=== PATIENT | female | born 1960 | race African-American/Black ===

== ENCOUNTER 2020-03-02 15:09 | Outpatient (REF) | payer OTHER, SELFPAY | END 2020-03-02 15:10 | disposition home or self-care (01) | LOC: HO.LAB 15:09 | PROVIDERS: Internal Medicine; Visit Provider Internal Medicine | DX: Z20.828 Contact with and (suspected) exposure to other viral communicable diseases (principal) | CPT/HCPCS: C9803; U0003 ==

== ENCOUNTER → 2020-06-24 15:00 | Outpatient (BNVA) | payer OTHER, SELFPAY | PROVIDERS: PCP Internal Medicine; Visit Provider Nurse Practitioner Family ==

== ENCOUNTER 2020-07-06 08:00 | Outpatient (REF) | payer OTHER, SELFPAY ==
--- NOTE | ~2020-07-06 | MM_ITS ---
EXAMINATION: MM SCREENING DIGITAL BREAST TOMOSYNTHESIS, BILATERAL CLINICAL INFORMATION: Screening. Asymptomatic. The lifetime risk of breast cancer based on the Tyrer-Cuzick Model is 5%. COMPARISON: Mammography: 04/20/2019, 12/19/2017 TECHNIQUE: Digital breast tomosynthesis is performed in both the craniocaudal and mediolateral oblique views along with computer-aided detection (CAD). Synthesized 2D images are generated from the tomosynthesis. FINDINGS: There are scattered areas of fibroglandular density (ACR BI-RADS breast composition Category b). Breast tissue composition borders on heterogeneously dense. Parenchymal pattern is similar to our exam. There is no developing density or interval mass or architectural abnormality. No abnormal calcifications. The axilla and skin contours are unremarkable. MM/MM tomosynthesis screening BI IMPRESSION: No mammographic evidence of malignancy. ASSESSMENT: BI-RADS 1: Negative RECOMMENDATION: Routine annual mammography screening. This patient's information was entered into a reminder system with a target due date for their next mammogram.
== END 2020-07-06 08:01 | disposition home or self-care (01) ==
LOC: HO.MAMMO 08:00
PROVIDERS: PCP Internal Medicine; Visit Provider Internal Medicine
DX: Z12.31 Encounter for screening mammogram for malignant neoplasm of breast (principal)
CPT/HCPCS: 77063; 77067

== ENCOUNTER 2020-07-15 12:22 | Day surgery (SDC) | payer OTHER, SELFPAY ==
--- NOTE | 2020-07-13 14:15 | P.CONAN_ITS ---
Documented by User: Karey Randall 07/13/20 14:15 HPI - Anesthesia Eval Consult details Narrative: 60yo F for Colonoscopy PMFSH Active Problems Active Problems: All Active Problems (Updated 05/23/20 @ 15:33 by Eva Denney MD) Exposure to COVID-19 virus (Acute) Annual physical exam (Acute) Lipid disorder (Acute) Depression, major, recurrent (Acute) Past Medical History Medical History Annual physical exam Depression, major, recurrent Lipid disorder Family History Family History Father Diabetes mellitus Mother Diabetes mellitus CVD (cardiovascular disease) Stroke Sister No problems noted. Surgical History Surgical History H/O colonoscopy History of ganglion cyst History of hysterectomy Social History Social History Household Members: None Alcohol intake: current Alcohol intake frequency: does not drink Smoking Status: Never smoker Use of substances other than those prescribed or required for medical reasons: No Advance Directives: No Advance Directives Information Provided: Yes Recently lost weight without trying: No Meds Allergies Allergy/AdvReac Type Severity Reaction Status Date / Time anise seed Allergy Unknown unknown Uncoded 06/24/20 15:01 black licorice Allergy Unknown unknown Uncoded 06/24/20 15:01 grass pollen Allergy Unknown unknown Uncoded 06/24/20 15:01 Home Medications Medication Instructions Recorded Confirmed Last Taken Type cholecalciferol (vitamin D3) 25 25 mcg PO DAILY 02/29/20 07/11/20 Unknown History mcg (1,000 unit) tablet multivitamin 1 tab PO DAILY 02/29/20 07/11/20 Unknown History Exam Exam Date and Time: July 13, 2020 1415 Assessment and Plan Assessment Anesthesia Assessment: Chart Reviewed Documented by User: La Morales 07/15/20 13:28 PMFSH Past Medical History Medical History Annual physical exam Depression, major, recurrent Lipid disorder Family History Family History Father Diabetes mellitus Mother Diabetes mellitus CVD (cardiovascular disease) Stroke Sister No problems noted. Surgical History Surgical History H/O colonoscopy History of ganglion cyst History of hysterectomy Social History Social History Household Members: None Alcohol intake: current Alcohol intake frequency: does not drink Smoking Status: Never smoker Use of substances other than those prescribed or required for medical reasons: No Advance Directives: No Advance Directives Information Provided: Yes Recently lost weight without trying: No Meds Allergies Allergy/AdvReac Type Severity Reaction Status Date / Time anise seed Allergy Unknown unknown Uncoded 06/24/20 15:01 black licorice Allergy Unknown unknown Uncoded 06/24/20 15:01 grass pollen Allergy Unknown unknown Uncoded 06/24/20 15:01 Home Medications Medication Instructions Recorded Confirmed Last Taken Type cholecalciferol (vitamin D3) 25 25 mcg PO DAILY 02/29/20 07/11/20 Unknown Hi story mcg (1,000 unit) tablet multivitamin 1 tab PO DAILY 02/29/20 07/11/20 Unknown History Exam Airway Mallampati Class: II TM Dist: >3cm Neck ROM: Full Assessment and Plan Assessment Anesthesia Assessment: Anesthesia Plan Discussed and Chart Reviewed Final Anesthetic Review NPO: Yes ASA Class: II Final Preanesthetic Review: No Changes in Pt Med Stat, Meds/Allgs Chart Reviewed, Consent Obtained/Reviewed and Anes Risks/Benef Reviewed Patient Risk: Intermediate Procedure Risk: Low Assessment/Block/Sedation in SS: Assess/Block/Sedation-SS Anesthetic Plan Anesthetic Plan: MAC: Disposition: Standard PACU
[2020-07-15 12:57] VITALS: BMI 41.5
[2020-07-15 13:15] VITALS: BP 107/53; PULSE 57; RESP 16; TEMP 36.6; O2SAT 97
[2020-07-15] MEDS: Lactated Ringers 1,000 ML 100 ML IVCONT (13:24)
--- NOTE | 2020-07-15 13:24 | W.PM.OPN ---
Operative Note Operative Note Date of Service: 07/15/20 Narrative: Pre-op diagnosis: Colon cancer screening, family history of colon polyps (dad in his 60's) Post-op diagnosis: other (Colon polyp, diverticulosis) Procedure: COLONOSCOPY TILL CECUM WITH BIOPSIES Consent: Indications for the procedure and potential complications of bleeding, perforation, reaction to medications and missed diagnosis were discussed with the patient and informed consent was obtained. Instrument: Olympus PCF H 190 L variable stiffness pediatric colonoscope Monitoring: Vital signs and clinical assessment, intermittent blood pressure monitoring, continuous EKG monitoring, Pulse oximetry and Carbon Dioxide monitoring were done throughout the procedure. Colon withdrawl time was 18 minutes. Procedure: The patient was placed in the left lateral decubitis position and pre-procedure medications were administered. After a digital rectal examination of the ano-rectum, the video colonoscope was inserted into the rectum and advanced through the colon to the cecum. The colonoscope was slowly withdrawn in a retrograde panoramic fashion and the colon mucosa was carefully examined including a retroflexed view of the rectum. Findings and interventions are described below. Procedure Difficulty: Without difficulty Findings: Terminal Ileum: Not evaluated Cecum: Normal Ascending Colon: Normal Transverse Colon: Normal Descending Colon: Normal Sigmoid Colon: A 2-3 mm diminutive appearing polyp removed with a cold biopsy. Moderate diverticulosis Rectum: Normal Ano-rectum: Normal Colon preparation: Excellent Impression and Post Procedure Diagnosis: Colonoscopy Findings: One diminutive polyp removed Moderate diverticulosis seen in the sigmoid colon Plan: Await pathology results Patient will be sent a letter with biopsy results and recommendations for follow-up colonoscopy. Repeat Colonoscopy interval based on path results - in 5 years if polyps are adenomatous and 10 years if polyps are hyperplastic. Above findings were reviewed with the patient and colon polyps and diverticulosis handouts were given in the discharge area Surgeon: Matthew Pool MD Anesthesia: MAC (Bailee Holguin, DUGLAS) Lymphedema Therapist: Kannan Germain Estimated blood loss (mL): 0 Pathology: other (A. TC polyp x 1) Condition: stable Disposition: PACU
--- NOTE | 2020-07-15 13:24 | MHC.SHP ---
Pre-Procedural Eval Section A The patient is an INPATIENT: No Changes since office visit: Yes Patient answered all questions; No Cold of Flu in the past 2 weeks, No New Medical Problems and No Changes in Medication The History & Physical has been completed within 30 days and I have reviewed it.: Yes Section B Chief Complaint: Screening Allergies: Allergies Allergy/AdvReac Type Severity Reaction Status Date / Time anise seed Allergy Unknown unknown Uncoded 06/24/20 15:01 black licorice Allergy Unknown unknown Uncoded 06/24/20 15:01 grass pollen Allergy Unknown unknown Uncoded 06/24/20 15:01 Plan I have reviewed the history and physical and performed a pertinent physical examination on my patient. No changes have occurred unless specified.
[2020-07-15 14:10] VITALS: BP 91/46; PULSE 58; RESP 16; TEMP 36.4; O2SAT 98
[2020-07-15 14:32] VITALS: BP 110/69; PULSE 70; RESP 16; TEMP 36.4; O2SAT 98
== END 2020-07-15 14:58 | disposition home or self-care (01) ==
PROVIDERS: PCP Internal Medicine; Visit Provider Internal Medicine Gastroenterology
PROC: 0DJD8ZZ Inspection of Lower Intestinal Tract, Via Natural or Artificial Opening Endoscopic (ICD-10-PCS; CPT 45378; principal; 2020-07-15 13:30)
DX: Z12.11 Encounter for screening for malignant neoplasm of colon (principal); Z80.0 Family history of malignant neoplasm of digestive organs; K63.5 Polyp of colon; K57.30 Diverticulosis of large intestine without perforation or abscess without bleeding; F33.9 Major depressive disorder, recurrent, unspecified; Z79.899 Other long term (current) drug therapy
CPT/HCPCS: 45380; 88305

== ENCOUNTER → 2021-01-06 11:01 | Outpatient (BNVA) | payer OTHER, SELFPAY | PROVIDERS: PCP Internal Medicine; Visit Provider Urology ==

== ENCOUNTER 2021-06-02 09:37 | Outpatient (REF) | payer OTHER, SELFPAY ==
[2021-06-02 11:29] LABS: MANUAL DIFF FLAG NO
[2021-06-02 11:40] LABS: Basophils Absolute Auto 0.1 X10*3/uL (0.0-0.2); Basophils Percent Auto 0.7 % (0-2); Eosinophils Absolute Auto 0.2 X10*3/uL (0.0-0.4); Eosinophils Percent Auto 2.3 % (0-4); Hematocrit 39.9 % (37.0-47.0); Hemoglobin 12.4 g/dl (12.0-16.0); Imm Gran Abs Auto 0.04 X10*3/uL (0.00-0.03); Imm Gran Pct Auto 0.5 % (0.0-0.4); Lymphocytes Absolute Auto 3.4 X10*3/uL (1.2-4.9); Mean Corpuscular HGB Conc 31.1 g/dl (31.0-35.0); Mean Corpuscular Hemoglobin 27.1 pg (27.0-33.0); Mean Corpuscular Volume 87.1 fL (80.0-98.0); Mean Platelet Volume 11.7 fL (9.4-12.3); Monocytes Absolute Auto 0.5 X10*3/uL (0.1-1.2); Monocytes Percent Auto 5.7 % (2-11); Neutrophils Absolute Auto 4.4 x10*3/uL (2.0-8.3); Neutrophils Percent Auto 50.8 % (45-73); Platelet Count 222 X10*3/uL (160-400); Red Blood Count 4.58 X10*6/uL (4.20-5.50); White Blood Count 8.6 X10*3/uL (4.8-10.8)
[2021-06-02 12:07] LABS: Alanine Aminotransferase 10 U/L (0-31); Albumin Level 3.9 g/dL (3.5-5.0); Alkaline Phosphatase 75 U/L (39-117); Anion Gap 10 (12-20); Aspartate Amino Transferase 15 U/L (5-31); Bilirubin Total 0.4 mg/dL (0.0-1.0); Blood Urea Nitrogen 17 mg/dL (9-16); Calcium 9.7 mg/dL (8.4-10.2); Carbon Dioxide 31 mmol/L (22-29); Chloride 103 mmol/L (96-108); Cholesterol 276 mg/dL; Estimated Glomerular Filt Rate > 60; Glucose Fasting 87 mg/dL (60-99); HDL Cholesterol 72 mg/dL; LDL Cholesterol Calculated 191 mg/dl; Potassium 5.2 mmol/L (3.3-5.1); Sodium 139 mmol/L (135-145); Total Protein 7.1 g/dL (6.5-8.0); Triglycerides 65 mg/dL
[2021-06-02 12:09] LABS: TSH reflex Free T4 1.71 uIU/mL (0.32-4.0)
== END 2021-06-02 09:38 | disposition home or self-care (01) ==
LOC: HO.HMGCLDS 09:37
PROVIDERS: PCP Internal Medicine; Visit Provider Internal Medicine
DX: Z00.01 Encounter for general adult medical examination with abnormal findings (principal); E78.9 Disorder of lipoprotein metabolism, unspecified; F33.9 Major depressive disorder, recurrent, unspecified
CPT/HCPCS: 36415; 80053; 80061; 84443; 85025

== ENCOUNTER 2021-09-04 17:47 | Outpatient (REF) | payer OTHER, SELFPAY ==
[2021-09-04 18:34] LABS: Influenza A PCR NEGATIVE (Negative); Influenza B PCR NEGATIVE (Negative); Resp Syncy Virus RNA Qual PCR NEGATIVE (Negative); SARS COV2 PCR INHOUSE POSITIVE (Negative)
== END 2021-09-04 17:48 | disposition home or self-care (01) ==
LOC: HO.LNP 17:47
PROVIDERS: Visit Provider Physician Assistant
DX: Z20.822 Contact with and (suspected) exposure to COVID-19 (principal); J40 Bronchitis, not specified as acute or chronic
CPT/HCPCS: 0241U

== ENCOUNTER 2021-10-10 10:23 | Outpatient (REF) | payer OTHER, SELFPAY ==
[2021-10-10 11:46] LABS: Alanine Aminotransferase 14 U/L (0-31); Albumin Level 3.9 g/dL (3.5-5.0); Alkaline Phosphatase 68 U/L (39-117); Anion Gap 11 (12-20); Aspartate Amino Transferase 18 U/L (5-31); Bilirubin Total 0.5 mg/dL (0.0-1.0); Blood Urea Nitrogen 16 mg/dL (9-16); Calcium 9.2 mg/dL (8.4-10.2); Carbon Dioxide 27 mmol/L (22-29); Chloride 108 mmol/L (96-108); Cholesterol 241 mg/dL; Estimated Glomerular Filt Rate > 60; Glucose Fasting 86 mg/dL (60-99); HDL Cholesterol 75 mg/dL; LDL Cholesterol Calculated 157 mg/dl; Sodium 142 mmol/L (135-145); Total Protein 6.9 g/dL (6.5-8.0); Triglycerides 46 mg/dL
== END 2021-10-10 10:24 | disposition home or self-care (01) ==
LOC: HO.HMGCLDS 10:23
PROVIDERS: PCP Internal Medicine; Visit Provider Internal Medicine
DX: E78.9 Disorder of lipoprotein metabolism, unspecified (principal); E66.01 Morbid (severe) obesity due to excess calories; F33.9 Major depressive disorder, recurrent, unspecified; M70.62 Trochanteric bursitis, left hip
CPT/HCPCS: 36415; 80053; 80061

== ENCOUNTER 2022-04-19 08:09 | Outpatient (REF) | payer OTHER, SELFPAY ==
[2022-04-19 17:16] LABS: Urine Cytology See Pathology rpt
== END 2022-04-19 08:10 | disposition home or self-care (01) ==
LOC: HO.LAB 08:09
PROVIDERS: PCP Internal Medicine; Visit Provider Nurse Practitioner Family
DX: R31.29 Other microscopic hematuria (principal); Z87.440 Personal history of urinary (tract) infections; Z79.899 Other long term (current) drug therapy
CPT/HCPCS: 51798; 88112

== ENCOUNTER 2022-06-19 09:55 | Outpatient (REF) | payer OTHER, SELFPAY ==
[2022-06-19 12:12] LABS: Alanine Aminotransferase 10 U/L (0-31); Albumin Level 3.8 g/dL (3.5-5.0); Alkaline Phosphatase 78 U/L (39-117); Anion Gap 13 (12-20); Aspartate Amino Transferase 13 U/L (5-31); Bilirubin Total 0.4 mg/dL (0.0-1.0); Blood Urea Nitrogen 16 mg/dL (9-16); Calcium 8.9 mg/dL (8.4-10.2); Carbon Dioxide 27 mmol/L (22-29); Chloride 105 mmol/L (96-108); Cholesterol 237 mg/dL; Estimated Glomerular Filt Rate 53; Glucose Fasting 90 mg/dL (60-99); HDL Cholesterol 73 mg/dL; LDL Cholesterol Calculated 156 mg/dl; Sodium 141 mmol/L (135-145); Total Protein 6.7 g/dL (6.5-8.0); Triglycerides 41 mg/dL
== END 2022-06-19 09:56 | disposition home or self-care (01) ==
LOC: HO.HMGCLDS 09:55
PROVIDERS: PCP Internal Medicine; Visit Provider Internal Medicine
DX: E66.01 Morbid (severe) obesity due to excess calories (principal); E78.9 Disorder of lipoprotein metabolism, unspecified; F33.9 Major depressive disorder, recurrent, unspecified; J45.20 Mild intermittent asthma, uncomplicated
CPT/HCPCS: 36415; 80053; 80061

== ENCOUNTER 2022-07-23 10:04 | Outpatient (REF) | payer OTHER, SELFPAY ==
--- NOTE | ~2022-07-23 | MM_ITS ---
EXAMINATION: MM SCREENING DIGITAL BREAST TOMOSYNTHESIS, BILATERAL CLINICAL INFORMATION: Screening. Asymptomatic. The lifetime risk of breast cancer based on the Tyrer-Cuzick Model is 5%. COMPARISON: Mammography: 07/06/2020, 04/20/2019, 12/19/2017 TECHNIQUE: Digital breast tomosynthesis is performed in both the craniocaudal and mediolateral oblique views along with computer-aided detection (CAD). Synthesized 2D images are generated from the tomosynthesis. FINDINGS: There are scattered areas of fibroglandular density (ACR BI-RADS breast composition Category b). There are no significant masses, abnormal calcifications, or other abnormalities. Breast tissue composition borders on heterogeneously dense. No developing density or architectural abnormality. The axilla and skin contours are unremarkable. No significant changes from prior exams. MM/MM tomosynthesis screening BI IMPRESSION: No mammographic evidence of malignancy. ASSESSMENT: BI-RADS 1: Negative RECOMMENDATION: Routine annual mammography screening. This patient's information was entered into a reminder system with a target due date for their next mammogram.
== END 2022-07-23 10:05 | disposition home or self-care (01) ==
LOC: HO.MAMMO 10:04
PROVIDERS: PCP Internal Medicine; Visit Provider Internal Medicine
DX: Z12.31 Encounter for screening mammogram for malignant neoplasm of breast (principal)
CPT/HCPCS: 77063; 77067

== ENCOUNTER 2022-12-19 08:10 | Outpatient (AMB) | payer OTHER, SELFPAY ==
--- NOTE | 2022-12-19 08:12 | MHC.OFFVIS ---
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 Pt reports that she was diagnosed with moderate degree of sleep apnea in 2019, the AHI was 15/hr and oxygen chip was 82%. The CPAP ordered but she declined to use CPAP at that time. However, her symptoms; loud snoring, gasping, non refreshing sleep and daytime tiredness have been worsened. Pt reports wt gain during COVID, not sure how much. Pt reports difficulty falling asleep and staying sleep. Pt's work schedule is from 9 am to 10 pm and sleeps only 5 hrs maximum, and also almost every other day she sleeps 2-3 hrs. Nyquil, Zquil, amitriptyline. magnesium and calcium but they did not help her sleep. She is a very light sleeper, can hear everything. Sleep questionnaire: Have you ever been diagnosed with a sleep disorder? KO. Have you ever had a sleep study in the past? Yes, 2019. Have you ever been treated for a sleep disorder? No. Do you take medications for a sleep disorder? No. Do you snore? Yes Do you wake up gasping at night? Yes. Do you have episodes of apneas? Yes, If yes, are they witnessed? Yes. Do you have episodes of nocturnal chest pain or dyspnea? No. Do you have difficulty initiating sleep? Yes. Do you have difficulty maintaining sleep? Yes. Do you wake up tired? Yes. Do you have headaches upon awakening? Yes. Do you wake up with dry mouth or throat? Yes. Do you have GERD? No. Do you have nocturia? No. Do you have nocturnal leg cramps? Yes. Do you have symptoms of restless legs? Yes. Do you act out your dreams? Yes Sleep hygiene questionnaire: What is your usual sleep routine? Usual bedtime is at 1 am; Usual wake up time is at 7 -8 am. Do you take naps? No Is your sleep environment cool, dark, and quiet? Yes. Do you exercise? 1 hr walking two days a week. Do you take caffeine or other stimulants? 1 cup of coffee in the morning. Do you use electronics in bed? Yes, using computer for work. What is your work schedule? 9 am to 10 pm Hypersomnolence questionnaire: Do you have daytime tiredness or fatigue? Yes. Do you easily fall asleep when inactive? No. Have you ever had episodes of sudden weakness? No. Have you ever had episodes of sudden weakness associated with strong emotions? No. [facility] Medical History Annual physical exam Depression, major, recurrent History of recurrent UTI (urinary tract infection) Lipid disorder Surgical History H/O colonoscopy History of ganglion cyst History of hysterectomy Family History Father Diabetes mellitus Mother Diabetes mellitus CVD (cardiovascular disease) Stroke Sister No problems noted. Social History (Updated 12/19/22 @ 08:18 by Anna Yen [facility]) Household Members: None Housing: Condominium Alcohol intake: current Alcohol intake frequency: does not drink Patient Tobacco Use Status: Never used Tobacco e-Cigarette/Vaping Use: Never Used service: No Current occupational status: employed Cognitive needs: No Hearing needs: No Vision needs: Yes Review of Systems Const All systems reviewed & are unremarkable except as noted in HPI and below ENT Reports Normal hearing present Neuro Reports Normal hearing present Physical Exam Vital Signs: Last Vital Signs Pulse 65 12/19/22 08:18 BP 102/78 12/19/22 08:18 Pulse Ox 99 12/19/22 08:18 Oxygen Delivery Method Room Air 12/19/22 08:18 BMI result Body Mass Index 41.8 Const General: cooperative Nutritional Appearance: obese Orientation/consciousness: patient oriented x3 Neck Neck: Yes full ROM and Yes supple Resp Effort & Inspection: normal respiratory effort and able to speak in complete sentences Neuro General: patient oriented x3 and gait normal Cranial nerves: Yes Normal facial strength present, Yes Midline tongue present, Yes Symmetric palate elevation present, Yes Normal hearing present, Yes Ability to bilaterally rotate head present and Yes Ability to bilaterally elevate shoulders present Cognition (Neuro): normal cognition Gait exam (Neuro): Normal gait present Motor exam (neuro): 5/5 motor strength present throughout, Pronator motor function not present and no tremor noted Psych Appearance: grossly normal Mental Status: mental status grossly normal Speech and movement: Normal speech and movement present Affect: normal affect Assessment & Plan Assessment & Plan (1) Insomnia: Code(s): G47.00 - Insomnia, unspecified (2) Sleep apnea in adult: Code(s): G47.30 - Sleep apnea, unspecified (3) Daytime sleepiness: Code(s): R40.0 - Somnolence Plan Pt is advised to undergo home sleep study to assess for sleep apnea. Will f/u with pt after study to discuss results and appropriate treatment options. Advised patient to try ear plug to reduce noise and can sleep better. Advised patient to try Bj, Mag and vitamin D daily. Advised patient to try 4-7-8 breathing technique for relaxation. Encouraged patient to read Say Good Night to Insomnia and practice the 6 weeks sleep hygiene practice. Pt to call with any worsening concerns or questions. Orders: Orders RT home sleep study 12/19/22 G47.00 - Insomnia, unspecified, G47.30 - Sleep apnea, unspecified, R40.0 - Somnolence Coding Level of Care Code New Pt Level 4 (71643) Diagnoses Insomnia G47.00 Sleep apnea in adult G47.30 Daytime sleepiness R40.0
[2022-12-19 08:18] VITALS: BP 102/78; PULSE 65; O2SAT 99; BMI 41.8
== END 2022-12-19 09:02 | disposition home or self-care (01) ==
PROVIDERS: PCP Internal Medicine; Visit Provider Nurse Practitioner Family
DX: G47.00 Insomnia, unspecified (principal); G47.30 Sleep apnea, unspecified; R40.0 Somnolence
CPT/HCPCS: 99204

== ENCOUNTER → 2022-12-19 08:10 | Outpatient (BNVA) | payer OTHER, SELFPAY | PROVIDERS: PCP Internal Medicine; Visit Provider Nurse Practitioner Family ==

== ENCOUNTER → 2023-01-02 13:07 | Outpatient (REF) | payer OTHER, SELFPAY | LOC: HO.SL 13:07 | PROVIDERS: PCP Internal Medicine; Visit Provider Nurse Practitioner Family | DX: G47.33 Obstructive sleep apnea (adult) (pediatric) (principal); G47.00 Insomnia, unspecified; R40.0 Somnolence | CPT/HCPCS: 95806 ==

== ENCOUNTER → 2023-01-02 13:23 | Outpatient (BNV) | payer OTHER, SELFPAY | PROVIDERS: PCP Internal Medicine; Visit Provider Psychiatry & Neurology Neurology | DX: G47.33 Obstructive sleep apnea (adult) (pediatric) (principal) | CPT/HCPCS: 95806 ==

== ENCOUNTER 2023-01-15 13:11 | Outpatient (AMB) | payer OTHER, SELFPAY ==
[2023-01-15 14:01] VITALS: BP 118/68; PULSE 86; TEMP 36.6; BMI 42.3
--- NOTE | 2023-01-15 14:01 | AM.OFFWIN_ITS ---
Intake Vital Signs 01/15/23 14:01 Height 5 ft 2 in Weight 231 lb 6 oz BMI 42.3 BP 118/68 Blood Pressure Location Rt brachial Position Sitting Pulse 86 Pulse Source Pulse Oximeter Temp 97.9 F Intake Visit Reasons: EP, Rash under stomache Intake Note: pt is here for c/o rash under stomach area Patient Tobacco Use Status: Never used Tobacco Allergies anise seed Allergy (Unknown, Uncoded 01/15/23 14:01) unknown black licorice Allergy (Unknown, Uncoded 01/15/23 14:01) unknown grass pollen Allergy (Unknown, Uncoded 01/15/23 14:01) unknown Do you need a note to return to daycare/school/sports/work: Yes HPI HPI Comments History of Present Illness Details 62-year-old female presents for rash. Patient has rash on lower part of her abdomen Enrique area between the skin folds. Been present for 3 weeks she has been using hydrocortisone cream and gold Abbasi powder with minimal relief it is itchy and occasionally painful to touch no prodrome fevers or chills. [facility] Medical History Annual physical exam Depression, major, recurrent History of recurrent UTI (urinary tract infection) Lipid disorder Surgical History H/O colonoscopy History of ganglion cyst History of hysterectomy Family History Father Diabetes mellitus Mother Diabetes mellitus CVD (cardiovascular disease) Stroke Sister No problems noted. Social History (Updated 12/19/22 @ 08:18 by Anna Yen [facility]) Household Members: None Housing: Condominium Alcohol intake: current Alcohol intake frequency: does not drink Patient Tobacco Use Status: Never used Tobacco e-Cigarette/Vaping Use: Never Used service: No Current occupational status: employed Cognitive needs: No Hearing needs: No Vision needs: Yes Review of Systems Skin/Breast Reports rash Physical Exam Vital Signs: Last Vital Signs Temp 97.9 F 01/15/23 14:01 Pulse 86 01/15/23 14:01 BP 118/68 01/15/23 14:01 BMI result Body Mass Index 42.3 Const General: healthy appearing, comfortable, no acute distress and alert Orientation/consciousness: patient oriented x3 Limitations: no limitations HEENT Head: Yes normal to inspection Ears: hearing grossly normal bilaterally Resp Effort & Inspection: normal respiratory effort and able to speak in complete sentences Cardio Rate: regular rate Skin Other: Rash with scattered papules on the lower abdomen between the pannus areas of excoriation in few breaks in the skin present. Gold Abbasi powder covering the rash. No vesicles General skin exam: no rashes or lesions noted Neuro General: patient oriented x3 Extrem General: Yes normal to inspection Assessment & Plan Assessment & Plan (1) Intertrigo: Code(s): L30.4 - Erythema intertrigo Plan: rash resembles intertrigo will prescribe ketoconazole cream topically recommend good hygiene as well as continued use of powders keep the area dry. Discharge instructions, follow up and treatment are discussed with patient in my usual fashion. Alternatives in treatment are also discussed. The patient will return for worsening symptoms or as needed. Advised that any labs/imaging ord ered will be followed up on and contact made if further treatment needed. Counseled that patient's condition may require further evaluation and/or treatment. Symptoms of concern for worsening disorder discussed in detail in my customary manner. Patient does verbalize understanding of the plan, there are no apparent barriers to communication. The patient is given the opportunity to ask questions and have them answered to his/her satisfaction Medications: New ketoconazole 2% 1 appl topical BID 30 grams 0RF Coding Level of Care Code Est Pt Level 3 (11227) Diagnoses Intertrigo L30.4
== END 2023-01-15 14:24 | disposition home or self-care (01) ==
PROVIDERS: PCP Internal Medicine; Visit Provider Physician Assistant
DX: L30.4 Erythema intertrigo (principal)
CPT/HCPCS: 99213

== ENCOUNTER 2023-04-05 11:01 | Outpatient (REF) | payer OTHER, SELFPAY | END 2023-04-05 11:02 | disposition home or self-care (01) | LOC: HO.US 11:01 | PROVIDERS: Visit Provider Nurse Practitioner Family | DX: R31.29 Other microscopic hematuria (principal); Z87.440 Personal history of urinary (tract) infections | CPT/HCPCS: 76775 ==

== ENCOUNTER 2023-04-10 13:46 | Outpatient (AMB) | payer OTHER, SELFPAY ==
[2023-04-10 13:47] VITALS: BP 116/62; PULSE 68; O2SAT 96; BMI 42.0
--- NOTE | 2023-04-10 13:47 | MHC.PC.OV ---
Vital Signs 04/10/23 13:47 Height 5 ft 2 in Weight 229 lb 8 oz BMI 42.0 BP 116/62 Blood Pressure Location Rt brachial Position Sitting Pulse 68 Pulse Source Pulse Oximeter Pulse Oximetry (%) 96 Oxygen Delivery Method Room Air Intake Visit Reasons: Medications F/U Allergies anise seed Allergy (Unknown, Uncoded 01/15/23 14:01) unknown black licorice Allergy (Unknown, Uncoded 01/15/23 14:01) unknown grass pollen Allergy (Unknown, Uncoded 01/15/23 14:01) unknown Medication List - Last Reconciled 04/10/23 by Luz Elena Valentin MD albuterol sulfate 90 mcg/actuation 2 puffs inhalation Q6H PRN cholecalciferol (vitamin D3) 25 mcg PO DAILY duloxetine 20 mg PO ONCE 90 days ipratropium bromide 2 sprays intranasal BID-TID PRN multivitamin (Daily Multi-Vitamin tablet) 1 tab PO DAILY sennosides-docusate sodium 8.6-50 mg (Senokot-S) 1 tab-cap PO BEDTIME 90 days simvastatin 80 mg PO DAILY 60 days Tobacco use date assessed: 04/17/22 Dental Screening Dental Screen Date: 04/10/23 Did you have a dental visit in the last 12 months?: Yes Did you have a dental problem in the last 6 months where you did not have access to dental care?: No Was dental information given to patient?: Patient has dentist HPI Medications F/U HPI Details Patient is 62-year-old female who was last seen May of last year came in today for follow-up appointment Patient suffer from fibromyalgia she was on duloxetine 20 mg b.i.d. which she stopped when she ran out. She is complaining of pain all over her body she used to do some bowel which she can not do it anymore. And she is not able to lose weight Her BMI is 42.0 I am booking her appointment with dietitian to start with. Currently patient is taking simvastatin 80 mg for lipid control, notified patient that it is very important that we see her at least every 6 months and she should have labs every 6 months as medication have side effect we will not be able to continue without proper monitoring Also complaining of feeling depressed I think duloxetine well help her with depression as well. Patient tells me that she has neuropathy in her feet however I do not have any documentation. I have ordered EMG nerve conduction study to evaluate that. She has been evaluated by Neurology for possible sleep apnea had sleep study done and still waiting for the machine. I have printed Neurology consultation and handed to patient last time she was seen was November of last year I have encouraged patient to give them a call to see what is happening with her sleep apnea machine. Patient is to return in 2 months for follow-up [facility] Medical History History of recurrent UTI (urinary tract infection) Annual physical exam Lipid disorder Depression, major, recurrent Surgical History H/O colonoscopy History of ganglion cyst History of hysterectomy Family History Father Diabetes mellitus Mother Diabetes mellitus CVD (cardiovascular disease) Stroke Sister No problems noted. Social History Household Members: None Housing: Condominium Alcohol intake: current Alcohol intake frequency: does not drink Patient Tobacco Use Status: Never used Tobacco e-Cigarette/Vaping Use: Never Used service: No Current occupational status: employed Cognitive needs: No Hearing needs: No Vision needs: Yes Questionnaire Thrive Questionnaire Date Thrive assessed: 04/17/22 AUDIT C Alcohol Use Questionnaire (AUDIT-C) 1. How often do you have a drink containing alcohol?: Never 3. How often do you have six or more drinks on one occasion?: Never Total Score: 0 Score Reviewed/Action Taken: Yes VEE-7 AMB Questionnaire VEE-7 Date VEE - 7 assessed: 04/17/22 Source: Developed by Drs. Porfirio Brown, Nancy Herring, Vick Neff and colleagues, with an educational honorio from [employer]. Review of Systems Const Denies chills and Denies fever(s) ENT Denies epistaxis and Denies nasal discharge Card Denies chest pain Resp Denies chest congestion, Denies cough and Denies hemoptysis GI Denies diarrhea and Denies nausea Skin/Breast Denies rash Neuro Reports no additional complaints Psych Reports no additional complaints Endo Reports no additional complaints Physical exam (Primary Care) Vital Signs: Last Vital Signs Pulse 68 04/10/23 13:47 BP 116/62 04/10/23 13:47 Pulse Ox 96 04/10/23 13:47 Oxygen Delivery Method Room Air 04/10/23 13:47 BMI result Body Mass Index 42.0 Tobacco/Smoking Status: Tobacco use Status Tobacco use date assessed 04/17/22 04/10/23 13:51 Patient Tobacco Use Status Never used Tobacco 04/10/23 13:51 e-Cigarette/Vaping Use Never Used 04/10/23 13:51 Thrive Assessment: Date of Thrive Assessment Date Thrive assessed 04/17/22 04/10/23 13:51 Const General: cooperative, comfortable and no acute distress Orientation/consciousness: patient oriented x3 HENMT Head: Yes normocephalic Eyes General: appearance normal, both eyes and all related structures Neck Neck: Yes supple Resp Effort & Inspection: normal respiratory effort, no cough and no stridor Cardio Rhythm: regular rhythm Heart sounds: S1 normal heart sound present and S2 normal heart sound present Skin General skin exam: turgor normal Neuro General: patient oriented x3, tone normal and moves all extremities Extrem Right lower extremity: no edema Left lower extremity: no edema Assessment and Plan Assessment & Plan (1) Depression, major, recurrent: Code(s): F33.9 - Major depressive disorder, recurrent, unspecified Qualifiers: Active/Remission status: currently active Major depression episode severity: mild Qualified Code(s): F33.0 - Major depressive disorder, recurrent, mild (2) Lipid disorder: Code(s): E78.9 - Disorder of lipoprotein metabolism, unspecified (3) Morbid (severe) obesity due to excess calories: Code(s): E66.01 - Morbid (severe) obesity due to excess calories (4) Fibromyalgia: Code(s): M79.7 - Fibromyalgia (5) Sleep apnea in adult: Code(s): G47.30 - Sleep apnea, unspecified (6) Leg paresthesia: Code(s): R20.2 - Paresthesia of skin Plan Patient is 62-year-old female who was last seen May of last year came in today for follow-up appointment Patient suffer from fibromyalgia she was on duloxetine 20 mg b.i.d. which she stopped when she ran out. She is complaining of pain all over her body she used to do some bowel which she can not do it anymore. And she is not able to lose weight Her BMI is 42.0 I am booking her appointment with dietitian to start with. Currently patient is taking simvastatin 80 mg for lipid control, notified patient that it is very important that we see her at least every 6 months and she should have labs every 6 months as medication have side effect we will not be able to continue without proper monitoring Also complaining of feeling depressed I think duloxetine well help her with depression as well. Patient tells me that she has neuropathy in her feet however I do not have any documentation. I have ordered EMG nerve conduction study to evaluate that. She has been evaluated by Neurology for possible sleep apnea had sleep study done and still waiting for the machine. I have printed Neurology consultation and handed to patient last time she was seen was November of last year I have encouraged patient to give them a call to see what is happening with her sleep apnea machine. Patient is to return in 2 months for follow-up Orders: Orders Comprehensive [place]. Panel Fast Today E66.01 - Morbid (severe) obesity due to excess calories, E78.9 - Disorder of lipoprotein metabolism, unspecified, F33.9 - Major depressive disorder, recurrent, unspecified, G47.30 - Sleep apnea, unspecified, M79.7 - Fibromyalgia Lipid Panel Today E66.01 - Morbid (severe) obesity due to excess calories, E78.9 - Disorder of lipoprotein metabolism, unspecified, F33.9 - Major depressive disorder, recurrent, unspecified, G47.30 - Sleep apnea, unspecified, M79.7 - Fibromyalgia TSH reflex Free T4 Today E66.01 - Morbid (severe) obesity due to excess calories, E78.9 - Disorder of lipoprotein metabolism, unspecified, F33.9 - Major depressive disorder, recurrent, unspecified, G47.30 - Sleep apnea, unspecified, M79.7 - Fibromyalgia NE electromyogram (EMG) Today R20.2 - Paresthesia of skin Complete Blood Count Auto Diff Today E66.01 - Morbid (severe) obesity due to excess calories, E78.9 - Disorder of lipoprotein metabolism, unspecified, F33.9 - Major depressive disorder, recurrent, unspecified, G47.30 - Sleep apnea, unspecified, M79.7 - Fibromyalgia NE nerve conduction velocity Today R20.2 - Paresthesia of skin Medications: Changed From simvastatin 80 mg PO DAILY 60 days 60 tabs 0RF To simvastatin 80 mg PO DAILY 90 days 90 tabs 0RF From duloxetine 20 mg PO BID 30 days 60 caps 0RF To duloxetine 20 mg PO ONCE 90 days 90 caps 0RF Coding Level of Care Code Est Pt Level 4 (03970) Diagnoses Mild episode of recurrent major depressive disorder F33.0 Active/Remission status: currently active Major depression episode severity: mild Lipid disorder E78.9 Morbid (severe) obesity due to excess calories E66.01 Fibromyalgia M79.7 Sleep apnea in adult G47.30 Leg paresthesia R20.2
== END 2023-04-10 14:26 | disposition home or self-care (01) ==
PROVIDERS: PCP Internal Medicine; Visit Provider Internal Medicine
DX: F33.0 Major depressive disorder, recurrent, mild (principal); E66.01 Morbid (severe) obesity due to excess calories; Z68.41 Body mass index [BMI] 40.0-44.9, adult; E78.9 Disorder of lipoprotein metabolism, unspecified; M79.7 Fibromyalgia; G47.30 Sleep apnea, unspecified; R20.2 Paresthesia of skin
CPT/HCPCS: 99214

== ENCOUNTER 2023-05-09 13:04 | Outpatient (REF) | payer OTHER, SELFPAY ==
[2023-05-09 16:08] LABS: MANUAL DIFF FLAG NO
[2023-05-09 16:17] LABS: Basophils Absolute Auto 0.1 X10*3/uL (0.0-0.2); Basophils Percent Auto 0.9 % (0-2); Eosinophils Absolute Auto 0.3 X10*3/uL (0.0-0.4); Eosinophils Percent Auto 2.5 % (0-4); Hematocrit 39.6 % (37.0-47.0); Hemoglobin 12.4 g/dl (12.0-16.0); Imm Gran Abs Auto 0.05 X10*3/uL (0.00-0.03); Imm Gran Pct Auto 0.5 % (0.0-0.4); Lymphocytes Absolute Auto 4.7 X10*3/uL (1.2-4.9); Lymphocytes Percent Auto 47.3 % (20-40); Mean Corpuscular HGB Conc 31.3 g/dl (31.0-35.0); Mean Corpuscular Volume 86.3 fL (80.0-98.0); Mean Platelet Volume 11.5 fL (9.4-12.3); Monocytes Absolute Auto 0.6 X10*3/uL (0.1-1.2); Monocytes Percent Auto 6.1 % (2-11); Neutrophils Absolute Auto 4.2 x10*3/uL (2.0-8.3); Neutrophils Percent Auto 42.7 % (45-73); Platelet Count 223 X10*3/uL (160-400); Red Blood Count 4.59 X10*6/uL (4.20-5.50); Red Cell Distribution Width 15.2 % (11.0-16.0); White Blood Count 9.9 X10*3/uL (4.8-10.8)
[2023-05-09 16:37] LABS: Alanine Aminotransferase 19 U/L (0-31); Albumin Level 3.8 g/dL (3.5-5.0); Alkaline Phosphatase 66 U/L (39-117); Anion Gap 12 (12-20); Aspartate Amino Transferase 19 U/L (5-31); Bilirubin Direct 0.1 mg/dL (0.0-0.5); Bilirubin Total 0.5 mg/dL (0.0-1.0); Blood Urea Nitrogen 15 mg/dL (9-16); Calcium 9.4 mg/dL (8.4-10.2); Carbon Dioxide 27 mmol/L (22-29); Chloride 105 mmol/L (96-108); Cholesterol 250 mg/dL (<200); Estimated Glomerular Filt Rate > 60; Glucose Fasting 92 mg/dL (60-99); HDL Cholesterol 85 mg/dL (>40); LDL Cholesterol Calculated 154 mg/dL (<100); Potassium 4.2 mmol/L (3.3-5.1); Sodium 140 mmol/L (135-145); Total Protein 7.3 g/dL (6.5-8.0); Triglycerides 59 mg/dL (<150)
== END 2023-05-09 13:05 | disposition home or self-care (01) ==
LOC: HO.HMGCLDS 13:04
PROVIDERS: PCP Internal Medicine; Visit Provider Internal Medicine
DX: E66.01 Morbid (severe) obesity due to excess calories (principal); F33.9 Major depressive disorder, recurrent, unspecified; M79.7 Fibromyalgia; G47.30 Sleep apnea, unspecified; E78.9 Disorder of lipoprotein metabolism, unspecified
CPT/HCPCS: 36415; 80053; 80061; 80076; 84443; 85025

== ENCOUNTER 2023-05-10 11:20 | Outpatient (REF) | payer OTHER, SELFPAY ==
[2023-05-10 15:48] LABS: Urine Cytology See Pathology rpt
== END 2023-05-10 11:21 | disposition home or self-care (01) ==
LOC: HO.LAB 11:20
PROVIDERS: PCP Internal Medicine; Visit Provider Nurse Practitioner Family
DX: N39.0 Urinary tract infection, site not specified (principal); R31.29 Other microscopic hematuria
CPT/HCPCS: 81003; 88112

== ENCOUNTER 2023-05-10 11:20 | Outpatient (AMB) | payer OTHER, SELFPAY ==
--- NOTE | 2023-05-10 11:27 | MHC.OFFVIS ---
Intake Intake Visit Reasons: 1y/US Intake Note: Patient presents today for a yearly follow up Allergies to antibiotics: None medications: None Blood Thinner: None Patient states she does not see visible blood when she urinates, and denies any pain. Rigging Up Man Required: No Accompanied by: Self / Same As Patient Allergies anise seed Allergy (Unknown, Uncoded 05/10/23 17:44) unknown black licorice Allergy (Unknown, Uncoded 05/10/23 17:44) unknown grass pollen Allergy (Unknown, Uncoded 05/10/23 17:44) unknown Medication List - Last Reconciled 05/10/23 by MARY BETH Garza albuterol sulfate 90 mcg/actuation 2 puffs inhalation Q6H PRN cholecalciferol (vitamin D3) 25 mcg PO DAILY duloxetine 20 mg PO ONCE PRN ipratropium bromide 2 sprays intranasal BID-TID PRN multivitamin (Daily Multi-Vitamin tablet) 1 tab PO DAILY sennosides-docusate sodium 8.6-50 mg (Senokot-S) 1 tab-cap PO BEDTIME 90 days simvastatin 80 mg PO DAILY 90 days HPI HPI Comments History of Present Illness Details Laurel is a pleasant 62-year-old female patient of . She has a past medical history of lipid disorder and depression. She presents today for follow-up regarding her microscopic hematuria. In discussion with the patient today she reports to be doing and feeling well. She offers no urological issues or concerns. In office urinalysis results reviewed with the patient today microscopic hematuria noted. Reviewed cytology from last office visit approximately 1 year ago --NAD. Recent retroperitoneal ultrasound results reviewed with the patient today. Bilateral kidneys with no calculi, lesions, and or hydronephrosis noted. Discussed at length potential causes of microscopic hematuria. She denies any previous known workplace chemical exposure and or nicotine dependence. Discussed further workup with in office cystoscopy versus surveillance monitoring. When asked she denies urinary urgency, urinary frequency, incontinence, nocturia, hematuria, dysuria, foul smelling urine, changes to urinary stream, flank pain, fever, and or chills. She is happy with her current voiding parameters. [facility] Medical History History of recurrent UTI (urinary tract infection) Annual physical exam Lipid disorder Depression, major, recurrent Surgical History H/O colonoscopy History of ganglion cyst History of hysterectomy Family History Father Diabetes mellitus Mother Diabetes mellitus CVD (cardiovascular disease) Stroke Sister No problems noted. Social History Household Members: None Housing: Condominium Alcohol intake: current Alcohol intake frequency: does not drink Patient Tobacco Use Status: Never used Tobacco e-Cigarette/Vaping Use: Never Used service: No Current occupational status: employed Cognitive needs: No Hearing needs: No Vision needs: Yes Review of Systems Const Reports no additional complaints Eyes Reports no additional complaints ENT Reports no additional complaints Card Reports as per HPI Resp Reports no additional complaints GI Reports no additional complaints Reports as per HPI Musc Reports no additional complaints Neuro Reports no additional complaints Psych Reports as per HPI Endo Reports no additional complaints Pacheco/Lymph Reports no additional complaints Aller/Immun Reports no additional complaints Physical Exam Const General: cooperative, healthy appearing, comfortable, no acute distress, well developed, alert and awake Nutritional Appearance: overweight Orientation/consciousness: patient oriented x3 Limitations: no limitations HEENT Head: Yes normal to inspection, Yes normocephalic and Yes atraumatic Ears: hearing grossly normal bilaterally Eyes General: appearance normal, both eyes and all related structures Neck Neck: Yes normal visual inspection and Yes trachea midline Chest Chest palpation & inspection: normal inspection of the chest Resp Effort & Inspection: normal respiratory effort and able to speak in complete sentences Cardio Rate: regular rate GI Inspection: Yes normal to inspection General: Yes no CVA tenderness Back/Spine/Pelvis Back: no CVA tenderness Cervical Spine: normal cervical lordosis Neuro General: patient oriented x3 Extrem General: Yes normal to inspection Psych Appearance: grossly normal and well kempt Mental Status: mental status grossly normal Speech and movement: Normal speech and movement present and Clear speech present Affect: normal affect Attitude: cooperative Thought process: Normal thought process present Thought content: Normal thought content present Insight: Fair insight present (Psych) Judgement: Fair judgement present (Psych) Results AMB Urinalysis, Automated UA Leukoctes 0 Geovanni/uL Last Edit by Babs Garibay CMA on 05/10/23 11:35 UA Nitrite Negative Last Edit by [facility], [facility] on 05/10/23 11:35 UA Urobilinogen 0.2 mg/dL Last Edit by [facility], [facility] on 05/10/23 11:35 UA Protein 0 mg/dL Last Edit by [facility], [facility] on 05/10/23 11:35 UA pH 6.0 Last Edit by [facility], [facility] on 05/10/23 11:35 UA Blood 25 Rogerio/uL Last Edit by [facility], [facility] on 05/10/23 11:35 UA Specific Hettinger 1.030 Last Edit by [facility], [facility] on 05/10/23 11:35 UA Ketone Negative Last Edit by [facility], [facility] on 05/10/23 11:35 UA Bilirubin 0 mg/dL Last Edit by [facility], [facility] on 05/10/23 11:35 UA Glucose 0 mg/dL Last Edit by [facility], [facility] on 05/10/23 11:35 Results Reviewed Results Reviewed: Laboratory Last Values Urine pH (Auto) 6.0 05/10/23 11:33 Specific Hettinger (Auto) 1.030 05/10/23 11:33 Urine Protein (Auto) 0 mg/dL 05/10/23 11:33 Glucose (UA)(Auto) 0 mg/dL 05/10/23 11:33 Urine Ketones (Auto) Negative 05/10/23 11:33 Urine Blood (Auto) 25 Rogerio/uL 05/10/23 11:33 Urine Nitrite (Auto) Negative 05/10/23 11:33 Urine Bilirubin (Auto) 0 mg/dL 05/10/23 11:33 Urine Urobilinogen (Auto) 0.2 mg/dL 05/10/23 11:33 Leukocyte Esterase (Auto) 0 Geovanni/uL 05/10/23 11:33 Date of Service: 04/05/23 EXAMINATION: US RETROPERITONEAL LIMITED (RENAL ONLY) FINDINGS: RIGHT KIDNEY: 11.4 x 3.6 x 4.5 cm (SAG x AP x TRV). The kidney is normal in size, contour, and echogenicity. Renal cortical thickness is normal. No calculi or focal parenchymal lesions. No hydronephrosis. LEFT KIDNEY: 10.2 x 4.5 x 4.2 cm (SAG x AP x TRV). The kidney is normal in size, contour, and echogenicity. Renal cortical thickness is normal. No calculi or focal parenchymal lesions. No hydronephrosis. IMPRESSION: Normal kidneys. Assessment & Plan Assessment & Plan (1) Microscopic hematuria: Code(s): R31.29 - Other microscopic hematuria Plan In office urinalysis results reviewed with the patient today; as noted above; will send for urine cytology. Recent renal imaging results reviewed with the patient today; as noted above. Previous cytology results reviewed with the patient today; as noted above. Discussed at length potential causes of microscopic hematuria. Discussed further workup with in office cystoscopy versus surveillance monitoring Will continue with surveillance monitoring Patient otherwise denies any bothersome urinary issues or concerns. She reports be happy with current voiding parameters. Follow-up in 2 years; or sooner with any issues, concerns, and or questions. Orders: Orders AMB Urinalysis Automated Today R33.9 - Retention of urine, unspecified Urine Cytology Today N39.0 - Urinary tract infection, site not specified Medications: Discontinued duloxetine Discontinued Reason: Patient Completed Course 20 mg PO ONCE PRN Patient Instructions: The patient had an opportunity to ask questions regarding the treatment plan. All questions were answered. Physical exam, labs, and imaging were discussed and reviewed in detail. As well as risks, benefits, and discussion of treatment choices. No major barriers to understanding were identified. The patient expressed understanding and agreement with the above treatment plan. The patient was made aware they should contact our office by phone for worsening of their current condition, the appearance of new symptoms, or with any questions or concerns. Compliance is encouraged with any medications and follow up testing that is ordered. It is a privilege to be allowed the opportunity to participate in? your urological care.? Again, if you have any questions or concerns If you have any questions or concerns please do not hesitate to contact me. The office is [phone]. This note is constructed using voice recognition software. While every effort has been made to ensure accuracy aging room operator errors may have been included. Yours sincerely, MARY BETH Garza Coding Level of Care Code Est Pt Level 4 (81718) Diagnoses Microscopic hematuria R31.29
== END 2023-05-10 12:16 | disposition home or self-care (01) ==
PROVIDERS: PCP Internal Medicine; Visit Provider Nurse Practitioner Family
DX: R33.9 Retention of urine, unspecified (principal); R31.29 Other microscopic hematuria
CPT/HCPCS: 99214

== ENCOUNTER 2023-05-15 14:59 | Outpatient (REF) | payer OTHER, SELFPAY ==
--- NOTE | 2023-05-15 15:02 | EMG_ITS ---
Chief complaint: History of neuropathy at least 30 years, chronic back pain, fibromyalgia More recently, she has been having muscle spasms on right foot. Bilateral low arch. Reason for referral: Evaluate for neuropathy Referred by: Dr. Valentin Procedure done: Bilateral lower extremity NCS/EMG Precautions and/or limitations: None The limb temperature was monitored continuously and remained between 32-36 degrees C during the performance of the NCS. Nerve Conduction Studies Anti Sensory Summary Table ?Stim Site NR Onset (ms) Norm Onset (ms) Peak (ms) Norm Peak (ms) O-P Amp (?V) Norm O-P Amp Site1 Site2 Delta-0 (ms) Dist (cm) Lavon (m/s) Norm Lavon (m/s) Left Sup Peron Anti Sensory (Ankle) Lateral Leg ? 1.8 2.3 <4.4 5.0 >5.0 Lateral Leg Ankle 1.8 14.0 78 Right Sup Peron Anti Sensory (Ankle) Lateral Leg ? 1.5 2.1 <4.4 11.0 >5.0 Lateral Leg Ankle 1.5 14.0 93 Left Sural Anti Sensory (Lat Mall) Calf ? 2.7 3.3 <4.0 7.8 >5.0 Calf Lat Mall 2.7 14.0 52 Right Sural Anti Sensory (Lat Mall) Calf ? 1.3 1.6 <4.0 7.0 >5.0 Calf Lat Mall 1.3 14.0 108 Motor Summary Table ?Stim Site NR Onset (ms) Norm Onset (ms) O-P Amp (mV) Norm O-P Amp iAmp (mV) Amp (1st) (%) Site1 Site2 Delta-0 (ms) Dist (cm) Lavon (m/s) Norm Lavon (m/s) Left Peroneal Motor (Ext Dig Brev) Ankle ? 4.4 <4.0 4.9 >2.5 6.3 100.0 Ankle Ext Dig Brev 4.4 0.0 B Fib ? 10.8 4.4 5.8 89.8 B Fib Ankle 6.4 29.0 45 >40 Poplt ? 11.5 4.3 5.5 87.8 Poplt B Fib 0.7 5.0 71 >40 Right Peroneal Motor (Ext Dig Brev) Ankle ? 4.1 <4.0 2.4 >2.5 2.9 100.0 Ankle Ext Dig Brev 4.1 0.0 B Fib ? 10.7 2.3 2.7 95.8 B Fib Ankle 6.6 31.5 48 >40 Poplt ? 11.9 2.6 3.0 108.3 Poplt B Fib 1.2 5.0 42 >40 Left Tibial Motor (Abd Vargas Brev) Ankle ? 4.5 <5 5.6 >2.5 7.4 100.0 Ankle Abd Vargas Brev 4.5 0.0 Knee ? 12.9 3.0 3.5 53.6 Knee Ankle 8.4 38.0 45 >40 Right Tibial Motor (Abd Vargas Brev) Ankle ? 4.4 <5 5.5 >2.5 7.0 100.0 Ankle Abd Vargas Brev 4.4 0.0 Knee ? 13.4 4.7 6.0 85.5 Knee Ankle 9.0 39.0 43 >40 EMG ?Side Muscle Nerve Root Ins Act Fibs Psw Amp Dur Poly Recrt Int Pat Comment Right AbdHallucis MedPlantar S1-2 Nml Nml Nml Nml Nml 0 Nml Complete Right AntTibialis Dp Br Peron L4-5 Nml Nml Nml Incr Incr 0 Nml Complete Right MedGastroc Tibial S1-2 Nml Nml Nml Nml Nml 0 Nml Complete Right VastusMed Femoral L2-4 Nml Nml Nml Nml Nml 0 Nml Complete Right ExtHallLong Dp Br Peron L5, S1 Nml Nml Nml Nml Nml 0 Nml Complete Right Peroneus Long Sup Br Peron L5-S1 Nml Nml Nml Incr Incr 0 Nml Complete Left AbdHallucis MedPlantar S1-2 Nml Nml Nml Nml Nml 0 Nml Complete Left AntTibialis Dp Br Peron L4-5 Nml Nml Nml Incr Incr 0 Nml Complete Left MedGastroc Tibial S1-2 Nml Nml Nml Nml Nml 0 Nml Complete Left VastusMed Femoral L2-4 Nml Nml Nml Nml Nml 0 Nml Complete Left ExtHallLong Dp Br Peron L5, S1 Nml Nml Nml Nml Nml 0 Nml Complete Left Peroneus Long Sup Br Peron L5-S1 Nml Nml Nml Nml Nml 0 Nml Complete FINDINGS: Right peroneal nerve showed prolonged distal latency, small amplitude and normal conduction velocity. Left peroneal nerve showed prolonged distal latency, normal amplitude and normal conduction velocity. All other nerves tested, including bilateral superficial peroneal sensory nerves, were within normal. Concentric needle EMG was performed in selected muscles of the bilateral lower extremity and lumbar paraspinals. Study revealed Signs of electric abnormalities as shown in the table below. Bilateral TA showed increased amplitude and duration. Right peroneus longus showed increased amplitude and duration. IMPRESSION: 1. This is an abnormal study. 2. There is electrodiagnostic evidence for chronic bilateral deep peroneal neuropathy. 3. There is no electrodiagnostic evidence for tibial neuropathy. lumbosacral plexopathy, lumbar radiculopathy, or a more diffuse distal neuropathy. Thank you for your kind referral. Lynette Vasquez MD, DAVIN Board Certified, [place] Board of Physical Medicine and Rehabilitation (ABPMR) Board Certified, [place] Board of Electrodiagnostic Medicine (ABEM) CODIN 50298 x 2 MTDD
== END 2023-05-15 15:00 | disposition home or self-care (01) ==
LOC: HO.NEURO 14:59
PROVIDERS: PCP Internal Medicine; Visit Provider Internal Medicine
DX: R20.2 Paresthesia of skin (principal)
CPT/HCPCS: 95886; 95910

== ENCOUNTER → 2023-05-15 15:02 | Outpatient (BNV) | payer OTHER, SELFPAY | PROVIDERS: PCP Internal Medicine; Visit Provider Physical Medicine & Rehabilitation | DX: S94.22XA Injury of deep peroneal nerve at ankle and foot level, left leg, initial encounter (principal); S94.21XA Injury of deep peroneal nerve at ankle and foot level, right leg, initial encounter | CPT/HCPCS: 95886; 95910 ==

== ENCOUNTER 2023-06-14 08:18 | Outpatient (AMB) | payer OTHER, SELFPAY ==
--- NOTE | 2023-06-14 08:22 | A.OFFVIS_ITS ---
Intake Vital Signs 06/14/23 08:28 Height 5 ft 2 in Weight 228 lb BMI 41.7 BP 112/64 Blood Pressure Location Lt brachial Position Sitting Pulse 57 Pulse Source Pulse Oximeter Pulse Oximetry (%) 96 Oxygen Delivery Method Room Air Intake Visit Reasons: 4 mnts f/u for sleep-LVM Intake Note: Patient presents for 4 months f/u. the masks doesn't fit correctly and would like to tried the pillow nasal mask. Allergies anise seed Allergy (Unknown, Uncoded 05/10/23 17:44) unknown black licorice Allergy (Unknown, Uncoded 05/10/23 17:44) unknown grass pollen Allergy (Unknown, Uncoded 05/10/23 17:44) unknown HPI HPI Comments History of Present Illness Details 63 y/o female patient presents for follo w up of sleep study. The home sleep study result was significant for a mild degree of sleep apnea. The AHI was 12/hr and oxygen chip was 80%. Pt started APAP [id number]. However, the CPAP mask does not fit well, air keeps leaking, needs to adjust frequently. She has hard time to sleep with CPAP. [facility] Medical History History of recurrent UTI (urinary tract infection) Annual physical exam Lipid disorder Depression, major, recurrent Surgical History H/O colonoscopy History of ganglion cyst History of hysterectomy Family History Father Diabetes mellitus Mother Diabetes mellitus CVD (cardiovascular disease) Stroke Sister No problems noted. Social History Household Members: None Housing: Condominium Alcohol intake: current Alcohol intake frequency: does not drink Patient Tobacco Use Status: Never used Tobacco e-Cigarette/Vaping Use: Never Used service: No Current occupational status: employed Cognitive needs: No Hearing needs: No Vision needs: Yes Review of Systems Const All systems reviewed & are unremarkable except as noted in HPI and below ENT Reports Normal hearing present Neuro Reports Normal hearing present Physical Exam Vital Signs: Last Vital Signs Pulse 57 06/14/23 08:28 BP 112/64 06/14/23 08:28 Pulse Ox 96 06/14/23 08:28 Oxygen Delivery Method Room Air 06/14/23 08:28 BMI result Body Mass Index 41.7 Const General: cooperative Nutritional Appearance: obese Orientation/consciousness: patient oriented x3 Neck Neck: Yes full ROM and Yes supple Resp Effort & Inspection: normal respiratory effort and able to speak in complete sentences Neuro General: patient oriented x3 and gait normal Cranial nerves: Yes Normal facial strength present, Yes Midline tongue present, Yes Symmetric palate elevation present, Yes Normal hearing present, Yes Ability to bilaterally rotate head present and Yes Ability to bilaterally elevate shoulders present Cognition (Neuro): normal cognition Gait exam (Neuro): Normal gait present Motor exam (neuro): 5/5 motor strength present throughout, Pronator motor function not present and no tremor noted Psych Appearance: grossly normal Mental Status: mental status grossly normal Speech and movement: Normal speech and movement present Affect: normal affect Assessment & Plan Assessment & Plan (1) Obstructive sleep apnea on CPAP: Code(s): G47.33 - Obstructive sleep apnea (adult) (pediatric) Plan New CPAP mask fitting prescription given to patient with [facility] walk in information. Continue to try CPAP, stressed compliance, use CPAP nightly and more than 4 hrs. Wt reduction avised. Coding Level of Care Code Est Pt Level 3 (92024) Diagnoses Obstructive sleep apnea on CPAP G47.33
[2023-06-14 08:28] VITALS: BP 112/64; PULSE 57; O2SAT 96; BMI 41.7
== END 2023-06-14 08:42 | disposition home or self-care (01) ==
PROVIDERS: PCP Internal Medicine; Visit Provider Nurse Practitioner Family
DX: G47.33 Obstructive sleep apnea (adult) (pediatric) (principal)
CPT/HCPCS: 99213

== ENCOUNTER → 2023-06-14 08:18 | Outpatient (BNVA) | payer OTHER, SELFPAY | PROVIDERS: PCP Internal Medicine; Visit Provider Nurse Practitioner Family ==

== ENCOUNTER 2023-06-25 10:35 | Outpatient (AMB) | payer OTHER, SELFPAY ==
[2023-06-25 10:37] VITALS: BP 112/70; PULSE 77; O2SAT 93; BMI 41.9
--- NOTE | 2023-06-25 10:37 | A.OFFPC_ITS ---
Vital Signs 06/25/23 10:37 Height 5 ft 2 in Weight 229 lb BMI 41.9 BP 112/70 Blood Pressure Location Lt brachial Position Sitting Pulse 77 Pulse Source Pulse Oximeter Pulse Oximetry (%) 93 Oxygen Delivery Method Room Air Intake Visit Reasons: Annual PE Allergies anise seed Allergy (Unknown, Uncoded 05/10/23 17:44) unknown black licorice Allergy (Unknown, Uncoded 05/10/23 17:44) unknown grass pollen Allergy (Unknown, Uncoded 05/10/23 17:44) unknown Medication List - Last Reconciled 06/25/23 by Luz Elena Valentin MD albuterol sulfate 90 mcg/actuation 2 puffs inhalation Q6H PRN cholecalciferol (vitamin D3) 25 mcg PO DAILY multivitamin (Daily Multi-Vitamin tablet) 1 tab PO DAILY sennosides-docusate sodium 8.6-50 mg (Senokot-S) 1 tab-cap PO BEDTIME 90 days simvastatin 80 mg PO DAILY 90 days Tobacco use date assessed: 06/25/23 Dental Screening Dental Screen Date: 06/25/23 Did you have a dental visit in the last 12 months?: Yes Did you have a dental problem in the last 6 months where you did not have access to dental care?: No Was dental information given to patient?: Patient has dentist HPI Annual PE HPI Details Physical exam Labs were done May of this year LDL is in 150s, patient is on simvastatin 80 mg but not taking it regularly Patient was advised to start taking it regularly. 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 Constipation to be treated with MiraLax [id number] Patient is morbidly obese need to lose weight PFSH Medical History History of recurrent UTI (urinary tract infection) Annual physical exam Lipid disorder Depression, major, recurrent Surgical History H/O colonoscopy History of ganglion cyst History of hysterectomy Family History Father Diabetes mellitus Mother Diabetes mellitus CVD (cardiovascular disease) Stroke Sister No problems noted. Social History Household Members: None Housing: Condominium Alcohol intake: current Alcohol intake frequency: does not drink Patient Tobacco Use Status: Never used Tobacco e-Cigarette/Vaping Use: Never Used service: No Current occupational status: employed Cognitive needs: No Hearing needs: No Vision needs: Yes Questionnaire Thrive Questionnaire Date Thrive assessed: 04/17/22 AUDIT C Alcohol Use Questionnaire (AUDIT-C) 1. How often do you have a drink containing alcohol?: Never 3. How often do you have six or more drinks on one occasion?: Never Total Score: 0 Score Reviewed/Action Taken: Yes VEE-7 AMB Questionnaire VEE-7 Date VEE - 7 assessed: 04/17/22 Source: Developed by Drs. Porfirio Brown, Nancy Herring, Vick Neff and colleagues, with an educational honorio from [employer]. Review of Systems Const Denies chills, Denies fever(s) and Denies headache(s) Eyes Denies blurry vision ENT Denies headache(s), Denies nasal discharge, Denies nasal obstruction, Denies odynophagia and Denies sinus pain Card Denies chest pain at rest and Denies chest pain with activity Resp Denies cough and Denies hemoptysis GI Denies diarrhea, Denies odynophagia, Denies vomiting and Denies hematemesis Reports as per HPI Musc Denies abnormal gait Skin/Breast Reports as per HPI Neuro Denies Neuro-related abnormal movements, Denies Abnormal speech present, Denies abnormal gait and Denies headache(s) Psych Denies mood swings and Denies paranoia Endo Reports as per HPI [place]/Lymph Reports as per HPI Aller/Immun Reports as per HPI Physical exam (Primary Care) Vital Signs: Last Vital Signs Pulse 77 06/25/23 10:37 BP 112/70 06/25/23 10:37 Pulse Ox 93 06/25/23 10:37 Oxygen Delivery Method Room Air 06/25/23 10:37 BMI result Body Mass Index 41.9 Tobacco/Smoking Status: Tobacco use Status Tobacco use date assessed 06/25/23 06/25/23 10:39 Patient Tobacco Use Status Never used Tobacco 06/25/23 10:39 e-Cigarette/Vaping Use Never Used 06/25/23 10:39 Thrive Assessment: Date of Thrive Assessment Date Thrive assessed 04/17/22 06/25/23 10:39 Const General: cooperative, comfortable and no acute distress Orientation/consciousness: patient oriented x3 HENMT Head: Yes normocephalic and Yes atraumatic Eyes General: appearance normal, both eyes and all related structures Pupils: Equal, round and reactive pupils present EOM: EOMs intact bilaterally Neck Neck: Yes supple and No lymphadenopathy Thyroid: Thyroid normal Lymphatic: no lymphadenopathy noted Chest Breast/axilla palpation: normal palpation of the breasts Resp Effort & Inspection: normal respiratory effort and able to speak in complete sentences Auscultation: clear to auscultation bilaterally Cardio Heart sounds: S1 normal heart sound present and S2 normal heart sound present GI Palpation (GI): Soft to palpation and nontender Auscultation: normal bowel sounds General: Yes no CVA tenderness Back/Spine/Pelvis Back: no CVA tenderness Skin General skin exam: elasticity normal and turgor normal Neuro General: patient oriented x3 and gait normal Cranial nerves: Yes Equal, round and reactive pupils present Speech: No Abnormal speech present Coordination: tandem gait normal and Romberg test negative Extrem General: Yes normal exam except as noted and No edema Assessment and Plan Assessment & Plan (1) Encounter for general adult medical examination with abnormal findings: Code(s): Z00.01 - Encounter for general adult medical examination with abnormal findings (2) Morbid (severe) obesity due to excess calories: Code(s): E66.01 - Morbid (severe) obesity due to excess calories (3) Lipid disorder: Code(s): E78.9 - Disorder of lipoprotein metabolism, unspecified (4) Neuropathy, peroneal nerve: Code(s): G57.30 - Lesion of lateral popliteal nerve, unspecified lower limb Qualifiers: Laterality: right Qualified Code(s): G57.31 - Lesion of lateral popliteal nerve, right lower limb (5) Leg paresthesia: Code(s): R20.2 - Paresthesia of skin (6) Obstructive sleep apnea on CPAP: Code(s): G47.33 - Obstructive sleep apnea (adult) (pediatric) (7) Fibromyalgia: Code(s): M79.7 - Fibromyalgia (8) Constipation by delayed colonic transit: Code(s): K59.01 - Slow transit constipation Plan Physical exam Labs were done May of this year LDL is in 150s, patient is on simvastatin 80 mg but not taking it regularly Patient was advised to start taking it regularly. 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 Constipation to be treated with MiraLax [id number] Patient is morbidly obese need to lose weight Medications: New pregabalin (Lyrica) 50 mg PO BEDTIME 90 caps 0RF polyethylene glycol 3350 (Miralax) 17 grams PO DAILY 1,530 grams 0RF 90 days Coding Level of Care Code Est Pt Prev Care 40-64y(12475) Diagnoses Encounter for general adult medical examination with abnormal findings Z00.01 Morbid (severe) obesity due to excess calories E66.01 Lipid disorder E78.9 Neuropathy of right peroneal nerve G57.31 Laterality: right Leg paresthesia R20.2 Obstructive sleep apnea on CPAP G47.33 Fibromyalgia M79.7 Constipation by delayed colonic transit K59.01
== END 2023-06-25 11:05 | disposition home or self-care (01) ==
PROVIDERS: Visit Provider Internal Medicine
DX: Z00.01 Encounter for general adult medical examination with abnormal findings (principal); E66.01 Morbid (severe) obesity due to excess calories; E78.9 Disorder of lipoprotein metabolism, unspecified; G57.31 Lesion of lateral popliteal nerve, right lower limb; R20.2 Paresthesia of skin; G47.33 Obstructive sleep apnea (adult) (pediatric); M79.7 Fibromyalgia; K59.01 Slow transit constipation; Z68.41 Body mass index [BMI] 40.0-44.9, adult
CPT/HCPCS: 99396

== ENCOUNTER 2023-09-23 16:05 | Outpatient (REF) | payer OTHER, SELFPAY | END 2023-09-23 16:06 | disposition home or self-care (01) | LOC: HO.MAMMO 16:05 | PROVIDERS: PCP Internal Medicine; Visit Provider Internal Medicine | DX: Z12.31 Encounter for screening mammogram for malignant neoplasm of breast (principal) | CPT/HCPCS: 77063; 77067 ==

== ENCOUNTER → 2023-09-23 16:15 | Outpatient (BNV) | payer OTHER, SELFPAY | PROVIDERS: PCP Internal Medicine; Visit Provider Radiology Diagnostic Radiology | DX: Z12.31 Encounter for screening mammogram for malignant neoplasm of breast (principal) | CPT/HCPCS: 77063; 77067 ==

== ENCOUNTER → 2023-12-19 08:47 | Outpatient (BNVA) | payer OTHER, SELFPAY | PROVIDERS: PCP Internal Medicine; Visit Provider Internal Medicine | DX: Z13.89 Encounter for screening for other disorder (principal) ==

== ENCOUNTER 2023-12-24 13:08 | Outpatient (AMB) | payer OTHER, SELFPAY ==
--- NOTE | 2023-12-24 13:10 | MHC.PC.OV ---
Vital Signs 12/24/23 13:12 Height 5 ft 2 in Weight 232 lb 6 oz BMI 42.5 BP 114/68 Blood Pressure Location Rt brachial Position Sitting Pulse 65 Pulse Source Pulse Oximeter Pulse Oximetry (%) 98 Oxygen Delivery Method Room Air Intake Visit Reasons: 6 month follow up Allergies anise seed Allergy (Unknown, Uncoded 12/24/23 13:12) unknown black licorice Allergy (Unknown, Uncoded 12/24/23 13:12) unknown grass pollen Allergy (Unknown, Uncoded 12/24/23 13:12) unknown Medication List - Last Reconciled 12/24/23 by Luz Elena Valentin MD albuterol sulfate 90 mcg/actuation 2 puffs inhalation Q6H PRN bupropion HCl XL 150 mg PO QAM cholecalciferol (vitamin D3) 25 mcg PO DAILY multivitamin (Daily Multi-Vitamin tablet) 1 tab PO DAILY polyethylene glycol 3350 (Miralax) 17 grams PO DAILY 90 days pregabalin (Lyrica) 50 mg PO BEDTIME simvastatin 80 mg PO DAILY 90 days Tobacco use date assessed: 06/25/23 Dental Screening Dental Screen Date: 06/25/23 HPI 6 month follow up HPI Details Patient is 63-year-old female with a history of mild sleep apnea, morbid obesity, depression, constipation, peroneal neuropathy bilateral Came in for follow-up, medication refill And also to talk about her worsening allergies Her nerve conduction study showed . There is electrodiagnostic evidence for chronic bilateral deep peroneal neuropathy. There is no electrodiagnostic evidence for tibial neuropathy. lumbosacral plexopathy, lumbar radiculopathy, or a more diffuse distal neuropathy. Patient was started on Lyrica 50 mg last visit which is helping her She has left lumbar radiculitis and paresthesia and both feet right more than left She is taking [id number] long-acting antihistamine for allergies but still have allergy symptoms I am adding montelukast and Flonase nasal spray Patient is to get back to me in 2 or 3 weeks to update me She is on high-dose statin and is due for labs, last set of lab was May of this year Patient is also morbidly obese and having difficulty losing weight Constipation is stable with MiraLax Continue vitamin-D supplement once a week Follow-up three-month for Lyrica refill patient was notified that this is a controlled medication and will be filled only at visits She is established with Neurology for sleep apnea management, still having difficulty sleeping with the mask on PFSH Medical History History of recurrent UTI (urinary tract infection) Annual physical exam Lipid disorder Depression, major, recurrent Surgical History H/O colonoscopy History of ganglion cyst History of hysterectomy Family History Father Diabetes mellitus Mother Diabetes mellitus CVD (cardiovascular disease) Stroke Sister No problems noted. Social History Household Members: None Housing: Condominium Alcohol intake: current Alcohol intake frequency: does not drink Patient Tobacco Use Status: Never used Tobacco e-Cigarette/Vaping Use: Never Used service: No Current occupational status: employed Cognitive needs: No Hearing needs: No Vision needs: Yes Questionnaire PHQ-9 Over the last 2 weeks, how often have you been bothered by any of the following problems? 1. Little interest or pleasure in doing things: more than half the days 2. Feeling down, depressed, or hopeless: more than half the days 3. Trouble falling or staying asleep, or sleeping too much: more than half the days 4. Feeling tired or having little energy: more than half the days 5. Poor appetite or overeating: more than half the days 6. Feeling bad about yourself - or that you are a failure or have let yourself or your family down: not at all 7. Trouble concentrating on things, such as reading the newspaper or watching television: several days 8. Moving or speaking so slowly that other people could have noticed. Or the opposite - being so fidgety or restless that you have been moving around a lot more than usual: several days 9. Thoughts that you would be better off or of hurting yourself in some way: not at all Total score: 12 Depression Screening Interpretation: Positive Depression Screening Follow-up: Existing condition and In treatment Depression Screening Done: Yes 25896 - PHQ-9 Billing: Yes Source: Developed by Drs. Porfirio Brown, NancyVick Jara and colleagues, with an educational honorio from [employer]. Thrive Questionnaire Date Thrive assessed: 12/18/23 I am a: Patient What is your living situation today?: I have a steady place to live Within the past 12 months, did the food you bought not last and you didn't have the money to get more?: Never true Within the past 12 months, did you worry whether your food would run out before you got money to buy more?: Never true Do you have trouble paying for medicines?: No Do you have trouble getting transportation to medical appointments?: No Do you have trouble paying your heating and electricity bill?: No Do you have trouble taking care of your child, family member or friend?: No Do you have trouble with day-to-day activities such as bathing, preparing meals, shopping, managing finances, etc.?: No Are you interested in more education?: No Please select the resources that you would like help with: None Currently or been in a relationship where the following occur: No concerns reported THRIVE Score: 0 AUDIT C Alcohol Use Questionnaire (AUDIT-C) 1. How often do you have a drink containing alcohol?: Monthly or less 2. How many drinks containing alcohol do you have on a typical day when you are drinking?: 1 or 2 3. How often do you have six or more drinks on one occasion?: Never Total Score: 1 VEE-7 AMB Questionnaire VEE-7 Date VEE - 7 assessed: 04/17/22 Feeling nervous, anxious, or on edge: 1 = Several days Not being able to stop or control worryin = Not at all Worrying too much about different things: 1 = Several days Trouble relaxin = More than half the days Being so restless that it is hard to sit still: 1 = Several days Becoming easily annoyed or irritable: 1 = Several days Feeling afraid as if something awful might happen: 0 = Not at all Total VEE-7 score (0-4 normal; 5-9 mild; 10-14 moderate; 15-21 severe): 6 Source: Developed by Nancy Ann Kurt Kroenke and colleagues, with an educational honorio from [employer]. Review of Systems Const Denies chills and Denies fever(s) ENT Denies epistaxis Card Denies chest pain Resp Denies chest congestion, Denies cough and Denies hemoptysis GI Denies diarrhea and Denies nausea Skin/Breast Denies rash Neuro Reports no additional complaints Psych Reports no additional complaints Endo Reports no additional complaints Physical exam (Primary Care) Vital Signs: Last Vital Signs Pulse 65 12/24/23 13:12 BP 114/68 12/24/23 13:12 Pulse Ox 98 12/24/23 13:12 Oxygen Delivery Method Room Air 12/24/23 13:12 BMI result Body Mass Index 42.5 Tobacco/Smoking Status: Tobacco use Status Tobacco use date assessed 06/25/23 12/24/23 13:12 Patient Tobacco Use Status Never used Tobacco 12/24/23 13:12 e-Cigarette/Vaping Use Never Used 12/24/23 13:12 PHQ-9: PHQ-9 Score PHQ-9: Total score 12 12/24/23 13:12 Depression Screening Interpretation: Positive Depression Screening Follow-up: Existing condition and In treatment Thrive Assessment: Date of Thrive Assessment Date Thrive assessed 12/18/23 12/24/23 13:12 Currently or been in a relationship where the following occur: No concerns reported Const General: cooperative, comfortable and no acute distress Orientation/consciousness: patient oriented x3 HENMT Head: Yes normocephalic Eyes General: appearance normal, both eyes and all related structures Neck Neck: Yes supple Resp Effort & Inspection: normal respiratory effort, no cough and no stridor Cardio Rhythm: regular rhythm Heart sounds: S1 normal heart sound present and S2 normal heart sound present Skin General skin exam: turgor normal Neuro General: patient oriented x3, tone normal and moves all extremities Extrem Right lower extremity: no edema Left lower extremity: no edema Assessment and Plan Assessment & Plan (1) Neuropathy, peroneal nerve: Code(s): G57.30 - Lesion of lateral popliteal nerve, unspecified lower limb Qualifiers: Laterality: right Qualified Code(s): G57.31 - Lesion of lateral popliteal nerve, right lower limb (2) Depression, major, recurrent: Code(s): F33.9 - Major depressive disorder, recurrent, unspecified Qualifiers: Active/Remission status: currently active Major depression episode severity: mild Qualified Code(s): F33.0 - Major depressive disorder, recurrent, mild (3) Lipid disorder: Code(s): E78.9 - Disorder of lipoprotein metabolism, unspecified (4) Leg paresthesia: Code(s): R20.2 - Paresthesia of skin (5) Obstructive sleep apnea on CPAP: Code(s): G47.33 - Obstructive sleep apnea (adult) (pediatric) (6) Fibromyalgia: Code(s): M79.7 - Fibromyalgia (7) Morbid (severe) obesity due to excess calories: Code(s): E66.01 - Morbid (severe) obesity due to excess calories (8) Constipation by delayed colonic transit: Code(s): K59.01 - Slow transit constipation Plan Patient is 63-year-old female with a history of mild sleep apnea, morbid obesity, depression, constipation, peroneal neuropathy bilateral Came in for follow-up, medication refill And also to talk about her worsening allergies Her nerve conduction study showed . There is electrodiagnostic evidence for chronic bilateral deep peroneal neuropathy. There is no electrodiagnostic evidence for tibial neuropathy. lumbosacral plexopathy, lumbar radiculopathy, or a more diffuse distal neuropathy. Patient was started on Lyrica 50 mg last visit which is helping her She has left lumbar radiculitis and paresthesia and both feet right more than left She is taking [id number] long-acting antihistamine for allergies but still have allergy symptoms I am adding montelukast and Flonase nasal spray Patient is to get back to me in 2 or 3 weeks to update me She is on high-dose statin and is due for labs, last set of lab was May of this year Patient is also morbidly obese and having difficulty losing weight Constipation is stable with MiraLax Continue vitamin-D supplement once a week Follow-up three-month for Lyrica refill patient was notified that this is a controlled medication and will be filled only at visits She is established with Neurology for sleep apnea management, still having difficulty sleeping with the mask on Orders: Orders Complete Blood Count Auto Diff Today E66.01 - Morbid (severe) obesity due to excess calories, E78.9 - Disorder of lipoprotein metabolism, unspecified, F33.0 - Major depressive disorder, recurrent, mild Comprehensive Met. Panel Today E66.01 - Morbid (severe) obesity due to excess calories, E78.9 - Disorder of lipoprotein metabolism, unspecified, F33.0 - Major depressive disorder, recurrent, mild Medications: New montelukast 10 mg PO DAILY 90 tabs 0RF bupropion HCl XL 150 mg PO QAM 90 tabs 0RF fluticasone propionate 50 mcg/actuation (Children's Flonase Allergy Relief) administer into each nostril 1 spray intranasal DAILY 16 grams 1RF Changed From cholecalciferol (vitamin D3) 25 mcg PO DAILY To ergocalciferol (vitamin D2) One capsule once a week 1,250 mcg PO QWEEK 90 days 13 caps 0RF Refilled polyethylene glycol 3350 (Miralax) 17 grams PO DAILY 90 days 1,530 grams 3RF pregabalin (Lyrica) 50 mg PO BEDTIME 90 caps 0RF simvastatin 80 mg PO DAILY 90 days 90 tabs 0RF Coding Level of Care Code Est Pt Level 4 (15138) Diagnoses Neuropathy of right peroneal nerve G57.31 Laterality: right Mild episode of recurrent major depressive disorder F33.0 Active/Remission status: currently active Major depression episode severity: mild Lipid disorder E78.9 Leg paresthesia R20.2 Obstructive sleep apnea on CPAP G47.33 Fibromyalgia M79.7 Morbid (severe) obesity due to excess calories E66.01 Constipation by delayed colonic transit K59.01
[2023-12-24 13:12] VITALS: BP 114/68; PULSE 65; O2SAT 98; BMI 42.5
== END 2023-12-24 13:30 | disposition home or self-care (01) ==
PROVIDERS: PCP Internal Medicine; Visit Provider Internal Medicine
DX: G57.31 Lesion of lateral popliteal nerve, right lower limb (principal); F33.0 Major depressive disorder, recurrent, mild; E66.01 Morbid (severe) obesity due to excess calories; Z68.41 Body mass index [BMI] 40.0-44.9, adult; E78.9 Disorder of lipoprotein metabolism, unspecified; R20.2 Paresthesia of skin; G47.33 Obstructive sleep apnea (adult) (pediatric); M79.7 Fibromyalgia; K59.01 Slow transit constipation

== ENCOUNTER → 2023-12-24 13:08 | Outpatient (BNVA) | payer OTHER, SELFPAY | PROVIDERS: PCP Internal Medicine; Visit Provider Internal Medicine | DX: G57.31 Lesion of lateral popliteal nerve, right lower limb (principal); F33.0 Major depressive disorder, recurrent, mild; E78.9 Disorder of lipoprotein metabolism, unspecified; R20.2 Paresthesia of skin; G47.33 Obstructive sleep apnea (adult) (pediatric); M79.7 Fibromyalgia; E66.01 Morbid (severe) obesity due to excess calories; K59.01 Slow transit constipation | CPT/HCPCS: 96127 ==

== ENCOUNTER 2024-01-30 13:58 | Outpatient (AMB) | payer OTHER, SELFPAY ==
--- NOTE | 2024-01-30 14:13 | MHC.OFFVIS ---
Vital Signs 01/30/24 14:15 Height 5 ft 2 in Weight 232 lb BMI 42.4 Intake Visit Reasons: 4 mnts f/u for sleep Intake Note: Patient presents for 4 month follow up. Allergies anise seed Allergy (Unknown, Uncoded 01/30/24 14:15) unknown black licorice Allergy (Unknown, Uncoded 01/30/24 14:15) unknown grass pollen Allergy (Unknown, Uncoded 01/30/24 14:15) unknown HPI Comments Details: 63 year old female with H/O neuropathy presents today for follow up of KO. She has been doing well continues to not be able to sleep through the night and stays up until 1 or 2 am. She gets home from work and at 10 PM and types her notes until 1 AM after dinner. She averages 5 hours of sleep and that is her baseline even when on vacations. At 3 AM she takes off the mask because it irritates her nose, the air is too cold, caused sores on her nose, she was getting sick. The mask loosens up and leaks, it does not fit properly and she asked for a nose pillow, however she is a mouth breather and concerned it will not work. When travelling for work she is not able to use it, and recently had an infection, she has bronchitis and is concerned about URI. She continues to have leg pain and wakes up 3 times a week with cramps and writhing pain in both legs L side is burning thigh(Quads) and back side of the leg when she sleeps on it, she is a side sleeper. Neuropathy in feet and leg, shooting pain mainly R>L. She says it feels sensitive to touch, and feels a lump, and knot which moves in her front thigh area she noticed it 6 months ago, is not painful. She has stress headaches 2X a week in the temporal area, she takes Motrin and it goes away. Sometimes she forgets to eat and has blurry vision. She has sensitivity to light and sounds (screechy sounds), smells, can't tolerate the dog food isle and allergic to licorice. Eye exam was done one year ago. Denies nausea and vomiting, vertigo or dizziness, forgetfulness, and snoring. She cleans mask, tubing, uses distilled water, and changes filters as appropriate. She would like to try to use the nasal pillow for better compliance, currently not at therapeutic level. She has Fibromyalgia, and gets massages at her gym daily for ten minutes. She takes Pregabalin (lyrica) 50 mg. Would like to start working out regularly is concerned about her weight. Discouraged by her back injury years ago. Mood is good today, takes vitamin D. 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 CPAP >4 hours used 12 days Average usage 3 hours 51 min Auto set Min pressure 5cmH20 - Max pressure [id number] EPR level 2 Therapy Pressure 7.1Median - 10.1Maximum Leaks 47.1 AHI 16.0 / Hr Serial # [id number] [facility] Medical History History of recurrent UTI (urinary tract infection) Annual physical exam Lipid disorder Depression, major, recurrent Surgical History H/O colonoscopy History of ganglion cyst History of hysterectomy Family History Father Diabetes mellitus Mother Diabetes mellitus CVD (cardiovascular disease) Stroke Sister No problems noted. Social History Household Members: None Housing: Condominium Alcohol intake: current Alcohol intake frequency: does not drink Patient Tobacco Use Status: Never used Tobacco e-Cigarette/Vaping Use: Never Used service: No Current occupational status: employed Cognitive needs: No Hearing needs: No Vision needs: Yes Review of Systems Const Reports as per HPI Physical Exam Vital Signs: BMI result Body Mass Index 42.4 Const General: cooperative, comfortable and no acute distress Nutritional Appearance: obese Orientation/consciousness: patient oriented x3 Eyes Pupils: Equal, round and reactive pupils present Neck Neck: Yes full ROM Resp Effort & Inspection: normal respiratory effort and able to speak in complete sentences Neuro General: patient oriented x3 Cranial nerves: Yes Equal, round and reactive pupils present, Yes Midline tongue present and Yes Ability to bilaterally elevate shoulders present Psych Appearance: grossly normal Affect: normal affect Attitude: cooperative Thought process: Normal thought process present Insight: Good insight present (Psych) Judgement: Good judgement present (Psych) Assessment & Plan Assessment & Plan (1) Obstructive sleep apnea on CPAP: Code(s): G47.33 - Obstructive sleep apnea (adult) (pediatric) Category: Medical Plan: -Will request new mask fitting for a change to nose pillow. -Will adjust APAP pressure from 5-91scQ1H w/ EPR to APAP 5-12.4 w/ EPR 3 in hopes this improves pt's ability to tolerate APAP better and reuslts in decreased residual AHI. -[place] OTC nasal Rinses with pressurized saline can also help prevent infections. (2) Neuropathy, peroneal nerve: Code(s): G57.30 - Lesion of lateral popliteal nerve, unspecified lower limb Category: Medical Qualifiers: Laterality: right Qualified Code(s): G57.31 - Lesion of lateral popliteal nerve, right lower limb Plan: Will increase Pregablin (lyrica) from 50mg qhs to 75mg qhs as patient is continuing to have bilateral leg pain at night. Magnesium aspart, citrate, oxide (400mg) 1 capsule at bedtime. Plan Pt seen by Nixon GEE in coordination w/ myself SHARITA Milton-, I agree with the above documentation and plan. Medications: New pregabalin 75 mg PO BEDTIME 30 caps 3RF 30 days Discontinued pregabalin Discontinued Reason: Doctor's Order 50 mg PO BEDTIME 90 caps 0RF Coding Level of Care Code Est Pt Level 4 (05893) Diagnoses Obstructive sleep apnea on CPAP G47.33 Neuropathy of right peroneal nerve G57.31 Laterality: right
[2024-01-30 14:15] VITALS: BMI 42.4
== END 2024-01-30 15:30 | disposition home or self-care (01) ==
LOC: HO.HSMS 13:59
PROVIDERS: PCP Internal Medicine; Visit Provider Nurse Practitioner Family
DX: G47.33 Obstructive sleep apnea (adult) (pediatric) (principal); G57.31 Lesion of lateral popliteal nerve, right lower limb
CPT/HCPCS: 99214

== ENCOUNTER → 2024-01-30 13:58 | Outpatient (BNVA) | payer OTHER, SELFPAY | PROVIDERS: PCP Internal Medicine; Visit Provider Nurse Practitioner Family ==

== ENCOUNTER 2024-02-12 11:50 | Outpatient (REF) | payer OTHER, SELFPAY ==
[2024-02-12 12:12] LABS: MANUAL DIFF FLAG NO
[2024-02-12 12:55] LABS: Basophils Absolute Auto 0.1 X10*3/uL (0.0-0.2); Basophils Percent Auto 0.8 % (0-2); Eosinophils Absolute Auto 0.3 X10*3/uL (0.0-0.4); Eosinophils Percent Auto 3.5 % (0-4); Hematocrit 40.4 % (37.0-47.0); Hemoglobin 12.9 g/dl (12.0-16.0); Imm Gran Abs Auto 0.03 X10*3/uL (0.00-0.03); Imm Gran Pct Auto 0.4 % (0.0-0.4); Lymphocytes Absolute Auto 3.6 X10*3/uL (1.2-4.9); Lymphocytes Percent Auto 43.9 % (20-40); Mean Corpuscular HGB Conc 31.9 g/dl (31.0-35.0); Mean Corpuscular Hemoglobin 27.7 pg (27.0-33.0); Mean Corpuscular Volume 86.9 fL (80.0-98.0); Mean Platelet Volume 11.5 fL (9.4-12.3); Monocytes Absolute Auto 0.4 X10*3/uL (0.1-1.2); Monocytes Percent Auto 5.1 % (2-11); Neutrophils Absolute Auto 3.8 x10*3/uL (2.0-8.3); Neutrophils Percent Auto 46.3 % (45-73); Platelet Count 200 X10*3/uL (160-400); Red Blood Count 4.65 X10*6/uL (4.20-5.50); Red Cell Distribution Width 14.5 % (11.0-16.0); White Blood Count 8.3 X10*3/uL (4.8-10.8)
[2024-02-12 13:33] LABS: Alanine Aminotransferase 25 U/L (0-31); Albumin Level 3.9 g/dL (3.5-5.0); Alkaline Phosphatase 78 U/L (39-117); Anion Gap 13 (12-20); Aspartate Amino Transferase 27 U/L (5-31); Bilirubin Total 0.4 mg/dL (0.0-1.0); Blood Urea Nitrogen 16 mg/dL (9-16); Calcium 9.6 mg/dL (8.4-10.2); Carbon Dioxide 26 mmol/L (22-29); Chloride 104 mmol/L (96-108); Cholesterol 241 mg/dL (<200); Estimated Glomerular Filt Rate > 60; Glucose Random 86 mg/dL (60-115); HDL Cholesterol 83 mg/dL (>40); LDL Cholesterol Calculated 149 mg/dL (<100); Potassium 4.1 mmol/L (3.3-5.1); Sodium 139 mmol/L (135-145); Total Protein 7.5 g/dL (6.5-8.0); Triglycerides 49 mg/dL (<150)
== END 2024-02-12 11:51 | disposition home or self-care (01) ==
LOC: HO.LAB 11:50
PROVIDERS: PCP Internal Medicine; Visit Provider Internal Medicine
DX: F33.0 Major depressive disorder, recurrent, mild (principal); E66.01 Morbid (severe) obesity due to excess calories; F33.9 Major depressive disorder, recurrent, unspecified; E78.9 Disorder of lipoprotein metabolism, unspecified; M79.7 Fibromyalgia; G47.30 Sleep apnea, unspecified
CPT/HCPCS: 36415; 80053; 80061; 85025

== ENCOUNTER 2024-02-14 09:30 | Outpatient (AMB) | payer OTHER, SELFPAY ==
[2024-02-14 09:37] VITALS: BP 112/70; PULSE 70; O2SAT 98
--- NOTE | 2024-02-14 09:37 | MHC.OFFWIV ---
Intake Vital Signs 02/14/24 09:37 Height 5 ft 2 in BP 112/70 Blood Pressure Location Rt brachial Position Sitting Pulse 70 Pulse Source Pulse Oximeter Pulse Oximetry (%) 98 Oxygen Delivery Method Room Air Intake Visit Reasons: EP pain on LT tigh Intake Note: pt is here for pain on left thigh, ongoing for years but getting worse. patient states she has neuropathy Patient Tobacco Use Status: Never used Tobacco Allergies anise seed Allergy (Unknown, Uncoded 01/30/24 14:15) unknown black licorice Allergy (Unknown, Uncoded 01/30/24 14:15) unknown grass pollen Allergy (Unknown, Uncoded 01/30/24 14:15) unknown Do you need a note to return to daycare/school/sports/work: No HPI HPI Comments History of Present Illness Details Patient is a 63-year-old female complaining of her neuropathy in her left leg as well as a lump in her left thigh. She tells me that the lump has been there for 6 months and she does not know what it is. She tells me does not feel like a muscle spasm and it does not hurt. She tells me there are no skin changes on the area. She tells me that her neuropathy is getting worse and it is very painful. 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 [facility] Medical History History of recurrent UTI (urinary tract infection) Annual physical exam Lipid disorder Depression, major, recurrent Surgical History H/O colonoscopy History of ganglion cyst History of hysterectomy Family History Father Diabetes mellitus Mother Diabetes mellitus CVD (cardiovascular disease) Stroke Sister No problems noted. Social History Household Members: None Housing: Condominium Alcohol intake: current Alcohol intake frequency: does not drink Patient Tobacco Use Status: Never used Tobacco e-Cigarette/Vaping Use: Never Used service: No Current occupational status: employed Cognitive needs: No Hearing needs: No Vision needs: Yes Review of Systems Const All systems reviewed & are unremarkable except as noted in HPI and below Physical Exam Vital Signs: Last Vital Signs Pulse 70 02/14/24 09:37 BP 112/70 02/14/24 09:37 Pulse Ox 98 02/14/24 09:37 Oxygen Delivery Method Room Air 02/14/24 09:37 Const General: cooperative, healthy appearing, comfortable, no acute distress and well developed Nutritional Appearance: obese Orientation/consciousness: patient oriented x3 Limitations: no limitations HEENT Head: Yes normal to inspection Ears: hearing grossly normal bilaterally General nose exam: Normal external nose present Face and sinus: Yes normal facial exam Eyes General: appearance normal, both eyes and all related structures Neck Neck: Yes normal visual inspection and Yes full ROM Resp Effort & Inspection: normal respiratory effort and able to speak in complete sentences Skin General skin exam: no rashes or lesions noted Neuro General: patient oriented x3 Extrem Other: Small palpable, mobile, lump in the tissue of her left thigh on the anterior aspect about mid thigh. Patient is wearing pants and I can not see the skin. 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 Recommended patient make an appointment with their PCP so they can discuss the lump in her left thigh, patient is requesting an ultrasound, I advised I can not order an ultrasound at the walk-in clinic. Plan See above Coding Level of Care Code Est Pt Level 3 (52524) Diagnoses Neuropathy of right peroneal nerve G57.31 Laterality: right
== END 2024-02-14 10:44 | disposition home or self-care (01) ==
PROVIDERS: PCP Internal Medicine; Visit Provider Physician Assistant
DX: G57.31 Lesion of lateral popliteal nerve, right lower limb (principal)

== ENCOUNTER → 2024-02-14 09:30 | Outpatient (BNVA) | payer OTHER, SELFPAY | PROVIDERS: PCP Internal Medicine; Visit Provider Physician Assistant ==

== ENCOUNTER 2024-03-04 09:26 | Outpatient (AMB) | payer OTHER, SELFPAY ==
[2024-03-04 09:31] VITALS: BP 116/70; PULSE 71; O2SAT 97; BMI 43.2
--- NOTE | 2024-03-04 09:31 | A.OFFPC_ITS ---
Vital Signs 3 03/04/24 09:31 Height 5 ft 2 in Weight 236 lb 2 oz BMI 43.2 BP 116/70 Blood Pressure Location Lt brachial Position Sitting Pulse 71 Pulse Source Pulse Oximeter Pulse Oximetry (%) 97 Oxygen Delivery Method Room Air Intake Visit Reasons: follow up/pneuropathy Allergies anise seed Allergy (Unknown, Uncoded 01/30/24 14:15) unknown black licorice Allergy (Unknown, Uncoded 01/30/24 14:15) unknown grass pollen Allergy (Unknown, Uncoded 01/30/24 14:15) unknown Medication List - Last Reconciled 03/04/24 by Luz Elena Valentin MD albuterol sulfate 90 mcg/actuation 2 puffs inhalation Q6H PRN bupropion HCl XL 150 mg PO QAM duloxetine 20 mg PO BID ergocalciferol (vitamin D2) 1,250 mcg PO QWEEK 90 days fluticasone propionate 50 mcg/actuation (Children's Flonase Allergy Relief) 1 spray intranasal DAILY montelukast 10 mg PO DAILY multivitamin (Daily Multi-Vitamin tablet) 1 tab PO DAILY polyethylene glycol 3350 (Miralax) 17 grams PO DAILY 90 days pregabalin 75 mg PO BEDTIME 30 days simvastatin 80 mg PO DAILY 90 days Tobacco use date assessed: 03/04/24 Dental Screening Dental Screen Date: 03/04/24 Did you have a dental visit in the last 12 months?: Yes Did you have a dental problem in the last 6 months where you did not have access to dental care?: No Was dental information given to patient?: Patient has dentist HPI follow up/pneuropathy 2 HPI0 Details Chief Complaint The patient presents with worsening left leg neuropathic pain. Assessment and Plan 63-year-old female with a history of raulito ropathy presenting with left leg pain. The patient reports worsening symptoms over four months, described as electric- like and sensitive upon touch without any rash. Neuropathic pain is somewhat alleviated by Cymbalta and Lyrica, and a back issue is suspected as a possible cause. Notable observations include the presence of a lipoma near the left thigh, confirmed through physical examination. Trochanteric bursitis is suspected due to pain upon palpation and longstanding preference for sleeping on the affected side, which is being managed by changes in sleeping posture. The patient's hyperlipidemia is under management with simvastatin, and her recent lab results show controlled cholesterol levels. Constipation is managed with MiraLAX, and allergic rhinitis appears manageable, with seasonal changes impacting symptoms. 1. Hyperlipidemia Maintain current treatment with simvastatin. Continue monitoring through periodic lipid panels. Recent results show a reduction in cholesterol, attributed to lifestyle changes and pharmacotherapy. 2. Trochanteric Bursitis Advise patient to avoid sleeping on the left side, as trochanteric bursitis is noted on examination. Cortisone injection can be considered if symptoms worsen, but current management with positional changes seems effective. 3. Allergic Rhinitis Resume taking montelukast in the morning, especially during seasonal changes, to manage allergy symptoms effectively. 4. Neuropathy To manage neuropathic pain, continue current pharmacotherapy with Cymbalta, taken during the day, and Lyrica at night. An x-ray of the back will be ordered to investigate the possibility of nerve compression causing the neuropathic symptoms. 5. Constipation Continue with MiraLAX as needed. Monitor bowel habits and ensure regular movements to prevent complications. 6. Lipoma Continue observation of the benign lipoma on the left thigh. It currently exhibits no pain upon palpation and has no immediate intervention indicated. Problem List - Neuropathy - Trochanteric bursitis - Lipoma - Hyperlipidemia - Constipation - Allergic rhinitis Patient Instructions - Continue taking Cymbalta and Lyrica as prescribed and monitor for any changes in neuropathic pain. - Avoid sleeping on the left side and us e pillows for support to manage trochanteric bursitis. - Observe the lipoma for any changes in size or sensation, but no immediate treatment is necessary. - Maintain current simvastatin therapy f or hyperlipidemia and follow a heart- healthy diet. - Use MiraLAX regularly to manage consti pation and monitor bowel consistency. - Start montelukast in the morning durin g allergy season to prevent exacerbation of symptoms. - Follow up in three months or sooner if symptoms worsen or new symptoms arise. - Continue regular exercise and stress m anagement techniques discussed. - Contact the pharmacy for medication re fills and ensure medications are not running low. Follow-up 3 months [facility] Medical History History of recurrent UTI (urinary tract infection) Annual physical exam Lipid disorder Depression, major, recurrent Surgical History H/O colonoscopy History of ganglion cyst History of hysterectomy Family History Father Diabetes mellitus Mother Diabetes mellitus CVD (cardiovascular disease) Stroke Sister No problems noted. Social History Household Members: None Housing: Condominium Alcohol intake: current Alcohol intake frequency: does not drink Patient Tobacco Use Status: Never used Tobacco e-Cigarette/Vaping Use: Never Used service: No Current occupational status: employed Cognitive needs: No Hearing needs: No Vision needs: Yes Questionnaire Thrive Questionnaire Date Thrive assessed: 03/04/24 I am a: Patient What is your living situation today?: I have a steady place to live Within the past 12 months, did the food you bought not last and you didn't have the money to get more?: Never true Within the past 12 months, did you worry whether your food would run out before you got money to buy more?: Never true Do you have trouble paying for medicines?: No Do you have trouble getting transportation to medical appointments?: No Do you have trouble paying your heating and electricity bill?: No Do you have trouble taking care of your child, family member or friend?: No Do you have trouble with day-to-day activities such as bathing, preparing meals, shopping, managing finances, etc.?: No Are you currently unemployed and looking for a job?: No Are you interested in more education?: No Please select the resources that you would like help with: None Currently or been in a relationship where the following occur: No concerns reported THRIVE Score: 0 AUDIT C Alcohol Use Questionnaire (AUDIT-C) 1. How often do you have a drink containing alcohol?: Monthly or less 2. How many drinks containing alcohol do you have on a typical day when you are drinking?: 1 or 2 3. How often do you have six or more drinks on one occasion?: Never Total Score: 1 Score Reviewed/Action Taken: Yes VEE-7 AMB Questionnaire VEE-7 Date VEE - 7 assessed: 03/04/24 Feeling nervous, anxious, or on edge: 1 = Several days Not being able to stop or control worryin = Not at all Worrying too much about different things: 1 = Several days Trouble relaxin = More than half the days Being so restless that it is hard to sit still: 1 = Several days Becoming easily annoyed or irritable: 1 = Several days Feeling afraid as if something awful might happen: 0 = Not at all Total VEE-7 score (0-4 normal; 5-9 mild; 10-14 moderate; 15-21 severe): 6 Source: Developed by Drs. Porfirio Brown, Nancy Herring, Vick Neff and colleagues, with an educational honorio from [employer]. VEE-7 Assessment Billing VEE-7 Assessment Tool: VEE-7 Assessment 44436 Review of Systems Const Denies chills and Denies fever(s) ENT Denies epistaxis and Denies nasal discharge Card Denies chest pain Resp Denies chest congestion, Denies cough and Denies hemoptysis GI Denies diarrhea and Denies nausea Skin/Breast Denies rash Neuro Reports no additional complaints Psych Reports no additional complaints Endo Reports no additional complaints Physical exam (Primary Care) Vital Signs: Last Vital Signs Pulse 71 03/04/24 09:31 BP 116/70 03/04/24 09:31 Pulse Ox 97 03/04/24 09:31 Oxygen Delivery Method Room Air 03/04/24 09:31 BMI result Body Mass Index 43.2 Tobacco/Smoking Status: Tobacco use Status Tobacco use date assessed 03/04/24 03/04/24 09:34 Patient Tobacco Use Status Never used Tobacco 03/04/24 09:34 e-Cigarette/Vaping Use Never Used 03/04/24 09:34 Thrive Assessment: Date of Thrive Assessment Date Thrive assessed 03/04/24 03/04/24 09:34 Currently or been in a relationship where the following occur: No concerns reported Const General: cooperative, comfortable and no acute distress Orientation/consciousness: patient oriented x3 HENMT Head: Yes normocephalic Eyes General: appearance normal, both eyes and all related structures Neck Neck: Yes supple Resp Effort & Inspection: normal respiratory effort, no cough and no stridor Cardio Rhythm: regular rhythm Heart sounds: S1 normal heart sound present and S2 normal heart sound present Back/Spine/Pelvis Other: No pain with percussion over spine, straight leg negative bilateral Skin General skin exam: turgor normal Neuro Other: Motor sensory intact DTR equal General: patient oriented x3, tone normal and moves all extremities Extrem Elbow/forearm/wrist images: 2 1. Small round lump size of barry felt nontender Right lower extremity: no edema Left lower extremity: no edema Upper/lower leg/hip images: 2 1. Pain with pressure over trochanteric bursa, mild Coding Level of Care Code Est Pt Level 4 (90180) Diagnoses Left lumbar radiculopathy M54.16 Leg paresthesia R20.2 Trochanteric bursitis of left hip M70.62 Fibromyalgia M79.7 Lipoma of left thigh D17.24 Mild episode of recurrent major depressive disorder F33.0 Active/Remission status: currently active Major depression episode severity: mild Lipid disorder E78.9 Morbid (severe) obesity due to excess calories E66.01 Mild intermittent asthma without complication J45.20 Asthma severity: mild Asthma complication type: uncomplicated Constipation by delayed colonic transit K59.01 Additional Codes VEE-7 Assessment Billing - VEE-7 Assessment Tool: VEE-7 Assessment [id number] ([id number]) Assessment & Plan Assessment & Plan (1) Left lumbar radiculopathy: Code(s): M54.16 - Radiculopathy, lumbar region Category: Medical (2) Leg paresthesia: Code(s): R20.2 - Paresthesia of skin Category: Medical (3) Trochanteric bursitis of left hip: Code(s): M70.62 - Trochanteric bursitis, left hip Category: Medical (4) Fibromyalgia: Code(s): M79.7 - Fibromyalgia Category: Medical (5) Lipoma of left thigh: Code(s): D17.24 - Benign lipomatous neoplasm of skin and subcutaneous tissue of left leg Category: Medical (6) Depression, major, recurrent: Code(s): F33.9 - Major depressive disorder, recurrent, unspecified Category: Medical Qualifiers: Active/Remission status: currently active Major depression episode severity: mild Qualified Code(s): F33.0 - Major depressive disorder, recurrent, mild (7) Lipid disorder: Code(s): E78.9 - Disorder of lipoprotein metabolism, unspecified Category: Medical (8) Morbid (severe) obesity due to excess calories: Code(s): E66.01 - Morbid (severe) obesity due to excess calories Category: Medical (9) Intermittent asthma: Code(s): J45.20 - Mild intermittent asthma, uncomplicated Category: Medical Qualifiers: Asthma severity: mild Asthma complication type: uncomplicated Q ualified Code(s): J45.20 - Mild intermittent asthma, uncomplicated (10) Constipation by delayed colonic transit: Code(s): K59.01 - Slow transit constipation Category: Medical Plan Chief Complaint The patient presents with worsening left leg neuropathic pain. Assessment and Plan 63-year-old female with a history of neuropathy presenting with left leg pain. The patient reports worsening symptoms over four months, described as electric- like and sensitive upon touch without any rash. Neuropathic pain is somewhat alleviated by Cymbalta and Lyrica, and a back issue is suspected as a possible cause. Notable observations include the presence of a lipoma near the left thigh, confirmed through physical examination. Trochanteric bursitis is suspected due to pain upon palpation and longstanding preference for sleeping on the affected side, which is being managed by changes in sleeping posture. The patient's hyperlipidemia is under management with simvastatin, and her recent lab results show controlled cholesterol levels. Constipation is managed with MiraLAX, and allergic rhinitis appears manageable, with seasonal changes impacting symptoms. 1. Hyperlipidemia Maintain current treatment with simvastatin. Continue monitoring through periodic lipid panels. Recent results show a reduction in cholesterol, attributed to lifestyle changes and pharmacotherapy. 2. Trochanteric Bursitis Advise patient to avoid sleeping on the left side, as trochanteric bursitis is noted on examination. Cortisone injection can be considered if symptoms worsen, but current management with positional changes seems effective. 3. Allergic Rhinitis Resume taking montelukast in the morning, especially during seasonal changes, to manage allergy symptoms effectively. 4. Neuropathy To manage neuropathic pain, continue current pharmacotherapy with Cymbalta, taken during the day, and Lyrica at night. An x-ray of the back will be ordered to investigate the possibility of nerve compression causing the neuropathic symptoms. 5. Constipation Continue with MiraLAX as needed. Monitor bowel habits and ensure regular movements to prevent complications. 6. Lipoma Continue observation of the benign lipoma on the left thigh. It currently exhibits no pain upon palpation and has no immediate intervention indicated. Problem List - Neuropathy - Trochanteric bursitis - Lipoma - Hyperlipidemia - Constipation - Allergic rhinitis Patient Instructions - Continue taking Cymbalta and Lyrica as prescribed and monitor for any changes in neuropathic pain. - Avoid sleeping on the left side and use pillows for support to manage trochanteric bursitis. - Observe the lipoma for any changes in size or sensation, but no immediate treatment is necessary. - Maintain current simvastatin therapy for hyperlipidemia and follow a heart- healthy diet. - Use MiraLAX regularly to manage constipation and monitor bowel consistency. - Start montelukast in the morning during allergy season to prevent exacerbation of symptoms. - Follow up in three months or sooner if symptoms worsen or new symptoms arise. - Continue regular exercise and stress management techniques discussed. - Contact the pharmacy for medication refills and ensure medications are not running low. Follow-up 3 months Orders: Orders 2 XR lumbar spine 2-3V Today M54.16 - Radiculopathy, lumbar region, R20.2 - Paresthesia of skin
--- OUTSIDE RECORDS SUMMARY | 2024-03-10 17:06 | XMS_ITS | Patient Health Record ---
[facility] Organization [facility] Address [address] [place] [facility] [place] [address] Care Team Providers Care Livestock Nutrition Territory Manager Name Role Phone Homero HERNANDES, [facility] Primary Care Provider Liang Wallis Unavailable [phone] Allergies No Known Allergies Reason For Referral No Information Medications Medication SIG (Take, Route, Frequency, Duration) Notes Start Date End Date Status Work Note . . . patient is disabled from work today due to cortisone injection 08/09/2017 Not-Taking buPROPion HCl 150mg Not-Taking Night Splint AFO - L1930 as directed 07/20/2021 Active Wellbutrin 150mg once a day Active Simvastatin Active Motrin 800mg PRN Active Immunizations Vaccine Route Administration Date Status Comme nts COVID-19 Pfizer BioNTech Vaccine Unknown 03/22/2021 Administered 1st 04/08/2020 2nd 04/29/2020 Social History Tobacco Use: Social History Observation Description Date Details (start date - stop date) Never Smoker NA - NA Tobacco Use/Smoking Question Answer Notes Are you a: nonsmoker Additional Findings: Tobacco Non-User Current no n-smoker Alcohol Screen Question Answer Notes Did you have a drink containing alcohol in the p ast year? No Points 0 Interpretation Negative Tobacco use other than smoking: Question Answer Notes Are you an other tobacco user? No Problems Problem Type SNOMED Code ICD Code Onset Dates Problem Status W/U Status Risk Notes Problem Localized, primary osteoarthritis of the ankle and/or foot (448811828) Primary osteoarthritis , right ankle and foot (M19.071) Active confirmed Problem Localized, primary osteoarthritis of the ankle and/or foot (486561347) Primary osteoarthritis , left ankle and foot (M19.072) Active confirmed Problem Acquired hammer toe of right foot (8035053094747499) Other hammer toe(s) (acquired), right foot (M20.41) Active confirmed Problem Acquired hammer toe of left foot (9750136268555880) Other hammer toe(s) (acquired), left foot (M20.42) Active confirmed Problem 081875225 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 Plan Of Treatment Pending Test Test Name Order Date X ray : Foot, left 3V 04/10/2017 X ray : Foot, left 3V 07/20/2021 X ray : Foot, right 3V 04/10/2017 X ray : Foot, right 3V 07/20/2021 86594, [id number]/INJECT, JOINT/BURSA 0 04/26/2017 86161, [id number]/INJECT, JOINT/BURSA 0 08/09/2017 19190, J0702- Neuroma/Injection 08/10/19 18 98511, J0702- Neuroma/Injection 04/26/19 18 Insurance Providers Payer Name Payer Address Payer Phone Subscriber Number Group Number Insured Name Patient Relationship to Insured Coverage Start Date Coverage End Date Blue Benefits [address] [address] [place] [address] [id number] Laurel Berman Self - patient is the insured Medical (General) History Medical History History ICD Code Arthritis asthma Back,Hip,and Knee pain Depression Fibromyalgia Sciatica chronic sinusitis Chicken pox Cholesterol Surgical History Surgery Date(Month/Year) hysterectomy 35 years old cyst removal from wrist 18 years old
--- OUTSIDE RECORDS SUMMARY | 2024-03-10 17:06 | XMS_ITS | Data Portability ---
Author Organization [facility] Address [address] [place] [address] Assessment No assessment recorded. Plan of Treatment Reminders Order Date Submit Date Provider Last Modified By Organization Details Last Modified Time Details Appointments None recorded. Lab rapid SARS CoV 2 Ag, QL IA, respiratory specimen 2022 023 [place] [address] [facility], [address] [place], [address], 17:35:43 Referral None recorded. Procedures None recorded. Surgeries None recorded. Imaging None recorded. Medication Orders amoxicillin 875 mg tablet [address] [facility], [address] [place] [address], [address], 3 17:37:49 Diflucan 150 mg tablet 2022 023 [facility], [address] [place] [address], [address], 3 17:35:50 Patient TargetsNo targets recorded. Patient Instructions Encounter Date Encounter Id Patient Instructions Last Modified By Organization Details Last Modified Time 04/24/2022 [id number] ear infection (otitis media): care instructions [place] [address] Not available 04/24/2022 17:35:42 You should follow-up with your PCP in 2-3 days, or at any time if your condition does not improve or worsens. Any acute change should prompt a visit to the nearest Emergency Department. [place] [address] Not available 04/24/2022 17:39:58 Reason for Referral None Reported. Results Created Date Observation Date Name Description Value Unit Range Abnormal Flag Note LastModifiedBy Organization Detail LastModifiedTime 04/24/1904/24/2022 rapid SARS CoV 2 Ag, QL IA, respi rator y speci men Unknown Analyte Normal =Negat robin Not Available [facility] [address] [place] [address], [phone], 04/24/2022 16:55:05 04/24/19 23 04/24/2022 rapid SARS CoV 2 Ag, QL IA, respi rator y speci men Unknown Analyte negati ve Not Available [address] [address] [place], [address], 04/24/2022 16:55:05 Result Notes None recorded. Problems Name Problem SNOMED Code Status Onset Date Resolution Date Notes Provider Name and Address Organization Details Recorded Time Hyperlipidemia 52357394 Active 2022 TYESHA becerra, PA - [facility] 3 16:53:52 Seasonal affective disorder 976707358 Active 2022 TYESHA becerra, PA - [facility] 3 16:54:21 Problem Notes None recorded. Procedures Surgical History Date Name Laterality Status Provider Name and Address Organization Details Recorded Time hysterectomy completed TYESHA TORRES PA - [facility] 04/24/2022 16:54:52 Imaging Results None recorded. Procedure Notes None recorded. Medical Equipment None Reported. Allergies No known drug allergies Medications Name Sig Start Date Stop Date Status Note LastModified by Organization Details LastModified Time azithromyci n 250 mg tablet TAKE 2 TABLETS BY MOUTH ON DAY 1, AND THEN TAKE 1 TABLET BY MOUTH ONCE A DAY ON DAY 2 THROUGH DAY 5 04/24 completed Not Available Not Available Not Available prednisone 20 mg tablet TAKE 1 TABLET BY MOUTH ONCE DAILY FOR 5 DAYS 04/24 completed Not Available Not Available Not Available Diflucan 150 mg tablet Take 1 tablet by oral route for 1 day. 2022 active Not Available Not Available Not Avai lable simvastatin 40 mg tablet TAKE 1 TABLET BY MOUTH ONCE DAILY active Not Available Not Available No t Available amoxicillin 875 mg tablet Take 1 tablet every 12 hours by oral route for 10 days. 2022 active Not Available Not Available Not Avai lable albuterol sulfate HFA 90 mcg/actuati on aerosol inhaler INHALE 2 PUFFS BY MOUTH EVERY 6 HOURS NEEDED FOR SHORTNESS OF BREATH OR WHEEZING active Not Available Not Available No t Available Stool Softener-La xative 8.6 mg-50 mg tablet 04/24 completed Not Available Not Available Not Available chlorhexidi ne gluconate 0.12 % mouthwash RINSE 10 ML BY MOUTH TWICE DAILY FOR 2 WEEKS 04/24 completed Not Available Not Available Not Available Wellbutrin SR active Not Available Not Available Not Available Vitals Date Recorded Body height Body mass index (BMI) Body weight Respiratory rate Oxygen saturation Oxygen saturation in Arterial blood by Pulse oximetry Heart rate Body temperature Systolic blood pressure Diastolic blood pressure Provider Name and Address Organization Details Last Updated DateTime 157.48 cm 42.1 kg/m2 166277. 25 g 18 /min 97 % 97 % 66 /min 98.4 [degF] 120 mm[Hg] 78 mm[Hg] TYESHA GEE [employer] 16:56:28 Social History Question Answer Notes LastModified by [employer] Details LastModified Time Tobacco Smoking Status Never Smoker TYESHA becerra PA [facility] 04/24/2022 16:54:39 What Is Your Level Of Alcohol Consumption? Occasional [email or web address] Information not available 04/24/2022 Do You Use Any Illicit Or Recreational Drugs? No [email or web address] Information not available 04/24/2022 Have You Recently Traveled Abroad? No [email or web address] Information not available 04/24/2022 Do You Or Have You Ever Used Any Other Forms Of Tobacco Or Nicotine? No [email or web address] Information not available 04/24/2022 Sex: Unknown Functional Status None recorded. Mental Status None recorded. Family History Relationship Description Onset Age of this Age Resolved Age Notes LastModified by Organization Details LastModified Time Father No current problems or disability [email or web address] Not available 04/24 16:54:23 Mother No current problems or disability [email or web address] Not available 04/24 16:54:23 Medical History No medical history recorded. Gynecological HistoryNo gynecological history recorded. Obstetrics History GPAL:G 0 P 0 0 0 0 Past Encounters Encounter ID Performer Location Encounter Start Date Encounter Closed Date Diagnosis/Indication Diagnosis SNOMED-CT Code Diagnosis ICD10 Code [id number] [address] [address] [place] [address] 04/11/2016 11:38:25 04/11/2016 12:43:59 [id number] [place] [address] 07/27/2021 08:36:44 07/27/2021 10:27:31 [id number] [address] [place] [address] 05/06/2021 11:40:41 05/06/2021 12:28:37 [id number] [address] [place] [address] 05/26/2020 08:03:08 05/26/2020 08:53:25 [id number] Sterling Holliday [place] [address] [place] [address] 04/24/2022 15:56:23 04/24/2022 17:36:34 Acute left otitis media 701904948 H66.92 Health Concerns Section Related Observation LastModified by Organization Detai ls LastModified Time None Recorded Concern Status LastModified by Organization Details LastModified Time None Recorded Advance Directives Directive None Recorded Payers Encounter Date Sequence Insurance Name Policy Number Policy Choi Covered Member ID Choi Member ID Guarantor Name 05/26/2020 1 [employer] [id number] Laurel Berman [id number] Laurel Berman 05/06/2021 1 [employer] [place] [id number] Laurel Berman [id number] Laurel Berman 07/27/2021 1 [employer] [place] [id number] Laurel Berman [id number] Laurel Berman 04/24/2022 1 [employer] [place] [id number] Laurel Berman [id number] Laurel Berman Notes Date Note Type Note Provider Name and Address Organization Details Recorded Time 04/24/2022 text/html Ear Pain Brief HPIReported bypatient.Locatio n:bilateral Onset/Timing:[facility] 2days ago Duration:occurs Quality:no itching; no discharge from the ears; no burning;throbbing pain Severity:no fever Context:no recent URI; no recent swimming Associated Symptoms:no cough; no discharge from ear;nasal congestion;sense of fullness/pressure pain from left ear radiating down into neck Sterling Holliday MD [address] [place], [address], [place] - [facility] 04/24/2022 17:40:09 OBGyn Episode No OBEpisode recorded.
== END 2024-03-04 09:50 | disposition home or self-care (01) ==
PROVIDERS: PCP Internal Medicine; Visit Provider Internal Medicine
DX: M54.16 Radiculopathy, lumbar region (principal); F33.0 Major depressive disorder, recurrent, mild; E66.01 Morbid (severe) obesity due to excess calories; Z68.41 Body mass index [BMI] 40.0-44.9, adult; R20.2 Paresthesia of skin; M70.62 Trochanteric bursitis, left hip; M79.7 Fibromyalgia; D17.24 Benign lipomatous neoplasm of skin and subcutaneous tissue of left leg; E78.9 Disorder of lipoprotein metabolism, unspecified; J45.20 Mild intermittent asthma, uncomplicated; K59.01 Slow transit constipation

== ENCOUNTER → 2024-03-04 09:26 | Outpatient (BNVA) | payer OTHER, SELFPAY | PROVIDERS: PCP Internal Medicine; Visit Provider Internal Medicine | DX: M54.16 Radiculopathy, lumbar region (principal); R20.2 Paresthesia of skin; M70.62 Trochanteric bursitis, left hip; M79.7 Fibromyalgia; D17.24 Benign lipomatous neoplasm of skin and subcutaneous tissue of left leg; F33.0 Major depressive disorder, recurrent, mild; E78.5 Hyperlipidemia, unspecified; E66.01 Morbid (severe) obesity due to excess calories; J45.20 Mild intermittent asthma, uncomplicated; J30.9 Allergic rhinitis, unspecified; K59.01 Slow transit constipation; G62.9 Polyneuropathy, unspecified; Z79.899 Other long term (current) drug therapy | CPT/HCPCS: 96127 ==

== ENCOUNTER 2024-04-07 13:12 | Outpatient (AMB) | payer OTHER, SELFPAY ==
[2024-04-07 13:20] VITALS: BP 110/60; PULSE 67; TEMP 36.7; O2SAT 96; BMI 43.2
--- NOTE | 2024-04-07 13:20 | MHC.OFFWIV ---
Intake Vital Signs 04/07/24 13:20 Height 5 ft 2 in Weight 236 lb BMI 43.2 BP 110/60 Blood Pressure Location Lt brachial Position Sitting Pulse 67 Pulse Source Pulse Oximeter Temp 98.1 F Temp Source Oral Pulse Oximetry (%) 96 Oxygen Delivery Method Room Air Intake Visit Reasons: EP-?bronchitis Intake Note: Pt is here today c/o coughing Patient Tobacco Use Status: Never used Tobacco Allergies anise seed Allergy (Unknown, Uncoded 04/07/24 13:21) unknown black licorice Allergy (Unknown, Uncoded 04/07/24 13:21) unknown grass pollen Allergy (Unknown, Uncoded 04/07/24 13:21) unknown HPI HPI Comments History of Present Illness Details Patient [facility] with cough She said onset 4 days ago + recent travel Hx o bronchitis in the past and feels similar White phlegm has turned yellow No fever or chills +congestion No ST or sinus pressure Slight SOB without chest pain She has tried decongestant OTC and drinking hot tea + CPAP but no other smoking hx She does admit to some R ear pain from the plane ride [facility] Medical History History of recurrent UTI (urinary tract infection) Annual physical exam Lipid disorder Depression, major, recurrent Surgical History H/O colonoscopy History of ganglion cyst History of hysterectomy Family History Father Diabetes mellitus Mother Diabetes mellitus CVD (cardiovascular disease) Stroke Sister No problems noted. Social History Household Members: None Housing: Condominium Alcohol intake: current Alcohol intake frequency: does not drink Patient Tobacco Use Status: Never used Tobacco e-Cigarette/Vaping Use: Never Used service: No Current occupational status: employed Cognitive needs: No Hearing needs: No Vision needs: Yes Review of Systems Const Denies chills and Denies fever(s) Eyes Denies change in vision ENT Denies dizziness, Reports otalgia, Reports nasal discharge, Denies sinus pain, Denies sore throat and Denies throat swelling Card Denies chest pain, Denies syncope and Reports dyspnea Resp Reports change in phlegm color, Reports chest congestion, Reports cough, Denies hemoptysis and Reports dyspnea Musc Denies myalgias Neuro Denies dizziness and Denies syncope Aller/Immun Denies throat swelling Physical Exam Vital Signs: Last Vital Signs Temp 98.1 F 04/07/24 13:20 Pulse 67 04/07/24 13:20 BP 110/60 04/07/24 13:20 Pulse Ox 96 04/07/24 13:20 Oxygen Delivery Method Room Air 04/07/24 13:20 BMI result Body Mass Index 43.2 General: Non-toxic, NAD. Speaking full sentences. Skin: Warm dry throughout Eye: EOMI HENT: Airway patent. Uvula midline. No pharyngeal erythema or edema. No DISTRIBUTOR PUBLICATIONS. Bilateral canals clear. + edematous bulging membrane R side with air fluid level. No perforation noted L side TM non-erythematous, non-bulging. No hemotympanum noted bilaterally. No mastoid tenderness. Respiratory: Slightly decreased throughout but otherwise CTA bilaterally. No wheezes, rales or rhonchi Cardiac: RRR. No murmur MSK: Full ROM extremities. Neurology: Alert. No aphasia or facial droop. Gait without abnormality Psych: Good mood and affect Assessment & Plan Assessment & Plan (1) Otitis media: Code(s): H66.90 - Otitis media, unspecified, unspecified ear Qualifiers: Otitis media type: suppurative Chronicity: acute Laterality: right Recurrence: non-recurrent Spontaneous tympanic membrane rupture: without spontaneous rupture Qualified Code(s): H66.001 - Acute suppurative otitis media without spontaneous rupture of ear drum, right ear Plan: + R OM on exam Augmentin to pharmacy (2) Cough: Code(s): R05.9 - Cough, unspecified Qualifiers: Cough type: acute Qualified Code(s): R05.1 - Acute cough Plan: No rales noted on exam Will be on augmentin and take OTC medicine for cough PRN Will F/U with PCP and call with concerns DIscussed CP or SOB go to ER Pt gave verbal understanding at time of discharge and all questions answered Medications: New fluconazole (Diflucan) 100 mg PO DAILY 1 tab 0RF amoxicillin-pot clavulanate 875-125 mg 1 tab PO BID 14 tabs 0RF Coding Level of Care Code Est Pt Level 3 (28918) Diagnoses Non-recurrent acute suppurative otitis media of right ear without spontaneous rupture of tympanic membrane H66.001 Otitis media type: suppurative Chronicity: acute Laterality: right Recurrence: non-recurrent Spontaneous tympanic membrane rupture: without spontaneous rupture Acute cough R05.1 Cough type: acute
--- OUTSIDE RECORDS SUMMARY | 2024-04-07 15:31 | XMS_ITS | Patient Health Record ---
Author Organization [facility] Address [address] [facility] [place] [address] Care Team Providers Care Glue Bone Crusher Name Role Phone Homero HERNANDES, [facility] Primary [facility] Provider Liang Wallis Unavailable [phone] Allergies No Known Allergies Reason For Referral [...] primary osteoarthritis of the ankle and/or foot (546011414) Primary osteoarthritis , right ankle and foot (M19.071) Active confirmed Problem Localized, primary osteoarthritis of the ankle and/or foot (896090580) Primary osteoarthritis , left ankle and foot (M19.072) Active confirmed Problem Acquired hammer toe of right foot (0669324665241346) Other hammer toe(s) (acquired), right foot (M20.41) Active confirmed Problem Acquired hammer toe of left foot (1586272529949686) Other hammer toe(s) (acquired), left foot (M20.42) Active confirmed Problem 563281770 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 Plan Of Treatment Pending Test Test Name Order Date X ray : Foot, left 3V 04/10/2017 X ray : Foot, left 3V 07/20/2021 X ray : Foot, right 3V 04/10/2017 X ray : Foot, right 3V 07/20/2021 30546, [id number]/INJECT, JOINT/BURSA 0 04/26/2017 47500, X7728-HTBAG/INJECT, JOINT/BURSA 0 08/09/2017 65552, J0702- Neuroma/Injection 08/10/19 18 17700, J0702- Neuroma/Injection 04/26/19 18 Insurance Providers Payer Name Payer Address Payer Phone Subscriber Number Group Number Insured Name Patient Relationship to Insured Coverage Start Date Coverage End Date Blue Benefits [address] [address] [place] [address] [id number] Laurel Berman Self - patient is the insured Medical (General) History Medical History History ICD Code Arthritis asthma Back,Hip,and Knee pain Depression Fibromyalgia Sciatica chronic sinusitis Chicken pox Cholesterol Surgical History Surgery Date(Month/Year) hysterectomy 35 years old cyst removal from wrist 18 years old
== END 2024-04-07 13:36 | disposition home or self-care (01) ==
PROVIDERS: PCP Internal Medicine; Visit Provider Physician Assistant
DX: H66.001 Acute suppurative otitis media without spontaneous rupture of ear drum, right ear (principal); R05.1 Acute cough

== ENCOUNTER → 2024-04-07 13:12 | Outpatient (BNVA) | payer OTHER, SELFPAY | PROVIDERS: PCP Internal Medicine; Visit Provider Physician Assistant ==

== ENCOUNTER 2024-07-17 09:34 | Outpatient (AMB) | payer OTHER, SELFPAY ==
[2024-07-17 09:35] VITALS: BP 102/74; PULSE 41; O2SAT 99; BMI 43.2
--- NOTE | 2024-07-17 09:35 | A.OFFPC_ITS ---
Vital Signs 07/17/24 09:35 Height 5 ft 2 in Weight 236 lb 6 oz BMI 43.2 BP 102/74 Blood Pressure Location Lt brachial Position Sitting Pulse 41 L Pulse Source Pulse Oximeter Pulse Oximetry (%) 99 Oxygen Delivery Method Room Air Intake Visit Reasons: Neuropathic pain Allergies anise seed Allergy (Unknown, Uncoded 04/07/24 13:21) unknown black licorice Allergy (Unknown, Uncoded 04/07/24 13:21) unknown grass pollen Allergy (Unknown, Uncoded 04/07/24 13:21) unknown Medication List - Last Reconciled 07/17/24 by Luz Elena Valentin MD albuterol sulfate 90 mcg/actuation 2 puffs inhalation Q6H PRN amoxicillin-pot clavulanate 875-125 mg 1 tab PO BID bupropion HCl XL 150 mg PO QAM cholecalciferol (vitamin D3) 25 mcg PO DAILY 90 days duloxetine 20 mg PO BID fluconazole (Diflucan) 100 mg PO DAILY fluticasone propionate 50 mcg/actuation (Children's Flonase Allergy Relief) 1 spray intranasal DAILY montelukast 10 mg PO DAILY multivitamin (Daily Multi-Vitamin tablet) 1 tab PO DAILY polyethylene glycol 3350 (Miralax) 17 grams PO DAILY 90 days pregabalin 75 mg PO BEDTIME 30 days simvastatin 80 mg PO DAILY 90 days Tobacco use date assessed: 03/04/24 Dental Screening Dental Screen Date: 03/04/24 HPI Neuropathic pain HPI Details History - The patient is a 64-year-old female pr esenting with follow-up concerns for persistent left leg pain and additional complaints of right hand and arm pain, dizziness, and blurry vision. - Left leg pain: Initially assessed in [place], associated with a lipoma on the left thigh. The patient reports persistent pain that was previously managed with Cymbalta and Lyrica, but these medications have become less effective over time. At night, the patient describes the pain as a burning sensation, similar to a lightning bolt. The knot initially felt in the leg has reportedly moved, and the whole leg hurts. - Right thumb and forearm pain: Describe d as tendon inflammation, the pain is localized around the thumb and exacerbated by using the hand, such as typing and driving. The patient experiences difficulty performing tasks with the right hand due to soreness spreading from the wrist to the shoulder. Previous use of a thumb cast provided relief. - Musculoskeletal pain: Affects the righ t forearm and is attributed to overuse, particularly during driving and typing . - Dizziness: Occurs primarily in the mor josé, with no consistent triggers identified. - Blurry vision and headaches: Episodes are brief, lasting about 5 to 10 minutes, and associated with headaches. The patient was advised by an eye doctor that the eyes are healthy, suggesting a potential migraine. - Lipoma on the left thigh: The patient experiences soreness when touching the lipoma; however, the more pressing concern is the pain affecting the entire leg. - Hyperlipidemia: Currently managed with simvastatin. - Constipation: Managed with MiraLax, th ough not covered by insurance. - Obstructive sleep apnea: Managed with a CPAP machine, though the patient reports a recent issue with costs regarding the machine. 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 - Limit the use of the right hand to red uce strain and promote healing. - Continue taking current medications as prescribed. - Monitor and report any new or worsenin g symptoms. - Follow up with the completion of lab w ork as previously ordered. Review of Systems General: No fever no chills neurological: No headaches no dizziness ear nose throat: No sore throat no hearing difficulty no ear pain cardiovascular: No syncope, no chest pain, no palpitations gastrointestinal: No nausea vomiting or diarrhea endocrine: No polyuria polydipsia no heat intolerance genitourinary: No dysuria skin: No new complaints Physical Exam general: No acute distress HEENT: No acute findings neck: Supple respiratory system: Able to talk in full sentences, no audible wheeze no stridor cardiovascular: S1-S2 RRR gastrointestinal: No pain extremities: Right thumb pain with active extension, wrist with full range of motion and forearm musculoskeletal pain, neurovascular intact, left leg pain over lipoma Back: No pain with percussion straight leg negative FIELD 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 Social History Household Members: None Housing: Condominium Alcohol intake: current Alcohol intake frequency: does not drink Patient Tobacco Use Status: Never used Tobacco e-Cigarette/Vaping Use: Never Used service: No Current occupational status: employed Cognitive needs: No Hearing needs: No Vision needs: Yes Questionnaire PHQ-9 Over the last 2 weeks, how often have you been bothered by any of the following problems? 1. Little interest or pleasure in doing things: not at all 2. Feeling down, depressed, or hopeless: not at all 3. Trouble falling or staying asleep, or sleeping too much: nearly every day 4. Feeling tired or having little energy: several days 5. Poor appetite or overeating: several days 6. Feeling bad about yourself - or that you are a failure or have let yourself or your family down: not at all 7. Trouble concentrating on things, such as reading the newspaper or watching television: several days 8. Moving or speaking so slowly that other people could have noticed. Or the opposite - being so fidgety or restless that you have been moving around a lot more than usual: not at all 9. Thoughts that you would be better off or of hurting yourself in some way: not at all Total score: 6 Depression Screening Interpretation: Negative Depression Screening Done: Yes 41253 - PHQ-9 Billing: Yes Source: Developed by Nancy AnnW. Nima, Vick Neff and colleagues, with an educational honorio from [employer]. Thrive Questionnaire Date Thrive assessed: 03/04/24 I am a: Patient What is your living situation today?: I have a steady place to live Within the past 12 months, did the food you bought not last and you didn't have the money to get more?: Never true Within the past 12 months, did you worry whether your food would run out before you got money to buy more?: Never true Do you have trouble paying for medicines?: No Do you have trouble getting transportation to medical appointments?: No Do you have trouble paying your heating and electricity bill?: No Do you have trouble taking care of your child, family member or friend?: No Do you have trouble with day-to-day activities such as bathing, preparing meals, shopping, managing finances, etc.?: No Are you currently unemployed and looking for a job?: No Are you interested in more education?: No Please select the resources that you would like help with: None Currently or been in a relationship where the following occur: No concerns reported THRIVE Score: 0 AUDIT C Alcohol Use Questionnaire (AUDIT-C) 1. How often do you have a drink containing alcohol?: Monthly or less 2. How many drinks containing alcohol do you have on a typical day when you are drinking?: 1 or 2 3. How often do you have six or more drinks on one occasion?: Never Total Score: 1 VEE-7 AMB Questionnaire VEE-7 Date VEE - 7 assessed: 03/04/24 Feeling nervous, anxious, or on edge: 1 = Several days Not being able to stop or control worryin = Several days Worrying too much about different things: 1 = Several days Trouble relaxin = Several days Being so restless that it is hard to sit still: 1 = Several days Becoming easily annoyed or irritable: 1 = Several days Feeling afraid as if something awful might happen: 0 = Not at all Total VEE-7 score (0-4 normal; 5-9 mild; 10-14 moderate; 15-21 severe): 6 Source: Developed by Nancy Ann Kurt Kroenke and colleagues, with an educational honorio from [employer]. Physical exam (Primary Care) Vital Signs: Last Vital Signs Pulse 41 L 07/17/24 09:35 BP 102/74 07/17/24 09:35 Pulse Ox 99 07/17/24 09:35 Oxygen Delivery Method Room Air 07/17/24 09:35 BMI result Body Mass Index 43.2 Tobacco/Smoking Status: Tobacco use Status Tobacco use date assessed 03/04/24 07/17/24 09:37 Patient Tobacco Use Status Never used Tobacco 07/17/24 09:37 e-Cigarette/Vaping Use Never Used 07/17/24 09:37 PHQ-9: PHQ-9 Score PHQ-9: Total score 6 07/17/24 11:22 Depression Screening Interpretation: Negative Thrive Assessment: Date of Thrive Assessment Date Thrive assessed 03/04/24 07/17/24 09:37 Currently or been in a relationship where the following occur: No concerns reported Coding Level of Care Code Est Pt Level 4 (81573) Diagnoses Left lumbar radiculopathy M54.16 Pain of right thumb M79.644 Mild episode of recurrent major depressive disorder F33.0 Active/Remission status: currently active Major depression episode severity: mild Lipoma of left thigh D17.24 Lipid disorder E78.9 Morbid (severe) obesity due to excess calories E66.01 Microscopic hematuria R31.29 Constipation by delayed colonic transit K59.01 Fibromyalgia M79.7 Sleep apnea in adult G47.30 Additional Codes PHQ-9 - 97476 - PHQ-9 Billing: Yes ([id number]) Assessment & Plan Assessment & Plan (1) Left lumbar radiculopathy: Code(s): M54.16 - Radiculopathy, lumbar region Category: Medical (2) Pain of right thumb: Code(s): M79.644 - Pain in right finger(s) Category: Medical (3) Depression, major, recurrent: Code(s): F33.9 - Major depressive disorder, recurrent, unspecified Category: Medical Qualifiers: Active/Remission status: currently active Major depression episode severity: mild Qualified Code(s): F33.0 - Major depressive disorder, recurrent, mild (4) Lipoma of left thigh: Code(s): D17.24 - Benign lipomatous neoplasm of skin and subcutaneous tissue of left leg Category: Medical (5) Lipid disorder: Code(s): E78.9 - Disorder of lipoprotein metabolism, unspecified Category: Medical (6) Morbid (severe) obesity due to excess calories: Code(s): E66.01 - Morbid (severe) obesity due to excess calories Category: Medical (7) Microscopic hematuria: Code(s): R31.29 - Other microscopic hematuria Category: Medical (8) Constipation by delayed colonic transit: Code(s): K59.01 - Slow transit constipation Category: Medical (9) Fibromyalgia: Code(s): M79.7 - Fibromyalgia Category: Medical (10) Sleep apnea in adult: Code(s): G47.30 - Sleep apnea, unspecified Category: Medical Plan History - The patient is a 64-year-old female with a history of microscopic hematuria, morbid obesity, depression, fibromyalgia, vitamin-D deficiency, allergies, constipation, lipid disorder presenting with follow-up concerns for persistent left leg pain and additional complaints of right hand and arm pain, dizziness, and blurry vision. - Left leg pain: Initially assessed in March, associated with a lipoma on the left thigh. The patient reports persistent pain that was previously managed with Cymbalta and Lyrica, but these medications have become less effective over time. At night, the patient describes the pain as a burning sensation, similar to a lightning bolt. The knot initially felt in the leg has reportedly moved, and the whole leg hurts. - Right thumb and forearm pain: Described as tendon inflammation, the pain is localized around the thumb and exacerbated by using the hand, such as typing and driving. The patient experiences difficulty performing tasks with the right hand due to soreness spreading from the wrist to the shoulder. Previous use of a thumb cast provided relief. - Musculoskeletal pain: Affects the right forearm and is attributed to overuse, particularly during driving and typing . - Dizziness: Occurs primarily in the morning, with no consistent triggers identified. - Blurry vision and headaches: Episodes are brief, lasting about 5 to 10 minutes, and associated with headaches. The patient was advised by an eye doctor that the eyes are healthy, suggesting a potential migraine. - Lipoma on the left thigh: The patient experiences soreness when touching the lipoma; however, the more pressing concern is the pain affecting the entire leg. - Hyperlipidemia: Currently managed with simvastatin. - Constipation: Managed with MiraLax, though not covered by insurance. - Obstructive sleep apnea: Managed with a CPAP machine, though the patient reports a recent issue with costs regarding the machine. Medications - Cymbalta (Duloxetine) for neuropathic pain - Lyrica (Pregabalin) for neuropathic pain - Simvastatin for hyperlipidemia - MiraLax for constipation - CPAP machine for obstructive sleep apnea Problem List - Left leg pain - Tendon inflammation of the right thumb - Musculoskeletal pain of the right forearm - Dizziness - Blurry vision with associated headaches (possible migraines) - Lipoma on the left thigh - Hyperlipidemia - Constipation - Obstructive sleep apnea [place] of Care - Referrals to a pain specialist for persistent left leg pain - Referral to an orthopedic hand specialist for right thumb and forearm pain Patient Instructions - Schedule appointments with the pain specialist for left leg pain and the orthopedic hand specialist for right hand and forearm pain. - Limit the use of the right hand to reduce strain and promote healing. - Continue taking current medications as prescribed. - Monitor and report any new or worsening symptoms. - Follow up with the completion of lab work as previously ordered. Orders: Orders Complete Blood Count Auto Diff Today D17.24 - Benign lipomatous neoplasm of skin and subcutaneous tissue of left leg, E66.01 - Morbid (severe) obesity due to excess calories, E78.9 - Disorder of lipoprotein metabolism, unspecified, F33.0 - Major depressive disorder, recurrent, mild, G47.30 - Sleep apnea, unspecified, K59.01 - Slow transit constipation, M54.16 - Radiculopathy, lumbar region, M79.644 - Pain in right finger(s), M79.7 - Fibromyalgia, R31.29 - Other microscopic hematuria Comprehensive [place]. Panel Fast Today D17.24 - Benign lipomatous neoplasm of skin and subcutaneous tissue of left leg, E66.01 - Morbid (severe) obesity due to excess calories, E78.9 - Disorder of lipoprotein metabolism, unspecified, F33.0 - Major depressive disorder, recurrent, mild, G47.30 - Sleep apnea, unspecified, K59.01 - Slow transit constipation, M54.16 - Radiculopathy, lumbar region, M79.644 - Pain in right finger(s), M79.7 - Fibromyalgia, R31.29 - Other microscopic hematuria Lipid Panel Today D17.24 - Benign lipomatous neoplasm of skin and subcutaneous tissue of left leg, E66.01 - Morbid (severe) obesity due to excess calories, E78.9 - Disorder of lipoprotein metabolism, unspecified, F33.0 - Major depressive disorder, recurrent, mild, G47.30 - Sleep apnea, unspecified, K59.01 - Slow transit constipation, M54.16 - Radiculopathy, lumbar region, M79.644 - Pain in right finger(s), M79.7 - Fibromyalgia, R31.29 - Other microscopic hematuria TSH reflex Free T4 Today D17.24 - Benign lipomatous neoplasm of skin and s ubcutaneous tissue of left leg, E66.01 - Morbid (severe) obesity due to excess calories, E78.9 - Disorder of lipoprotein metabolism, unspecified, F33.0 - Major depressive disorder, recurrent, mild, G47.30 - Sleep apnea, unspecified, K59.01 - Slow transit constipation, M54.16 - Radiculopathy, lumbar region, M79.644 - Pain in right finger(s), M79.7 - Fibromyalgia, R31.29 - Other microscopic hematuria Vitamin D 25-OH (D2 and D3) Today D17.24 - Benign lipomatous neoplasm of skin and subcutaneous tissue of left leg, E66.01 - Morbid (severe) obesity due to excess calories, E78.9 - Disorder of lipoprotein metabolism, unspecified, F33.0 - Major depressive disorder, recurrent, mild, G47.30 - Sleep apnea, unspecified, K59.01 - Slow transit constipation, M54.16 - Radiculopathy, lumbar region, M79.644 - Pain in right finger(s), M79.7 - Fibromyalgia, R31.29 - Other microscopic hematuria Vitamin B12 Today D17.24 - Benign lipomatous neoplasm of skin and subcutaneous tissue of left leg, E66.01 - Morbid (severe) obesity due to excess calories, E78.9 - Disorder of lipoprotein metabolism, unspecified, F33.0 - Major depressive disorder, recurrent, mild, G47.30 - Sleep apnea, unspecified, K59.01 - Slow transit constipation, M54.16 - Radiculopathy, lumbar region, M79.644 - Pain in right finger(s), M79.7 - Fibromyalgia, R31.29 - Other microscopic hematuria Referrals Hand Surgery Referral M79.644 - Pain in right finger(s) Pain Management Referral M54.16 - Radiculopathy, lumbar region Medications: Refilled bupropion HCl XL 150 mg PO QAM 90 tabs 0RF duloxetine 20 mg PO BID 60 caps 0RF simvastatin 80 mg PO DAILY 90 days 90 tabs 0RF Discontinued montelukast Discontinued Reason: Doctor's Order 10 mg PO DAILY 90 tabs 0RF
--- OUTSIDE RECORDS SUMMARY | 2024-07-17 10:08 | XMS_ITS | Patient Health Record ---
[facility] Address [address] [place] [address] Care Team Providers Care Shampoo Person Name Role Phone Homero HERNANDES, [facility] Primary [facility] Provider Liang Wallis Unavailable [phone] Allergies No Known Allergies Reason For Referral [...] primary osteoarthritis of the ankle and/or foot ([id number]) Primary osteoarthritis , right ankle and foot (M19.071) Active confirmed Problem Localized, primary osteoarthritis of the ankle and/or foot (745431383) Primary osteoarthritis , left ankle and foot (M19.072) Active confirmed Problem Acquired hammer toe of right foot (6508531645340476) Other hammer toe(s) (acquired), right foot (M20.41) Active confirmed Problem Acquired hammer toe of left foot (6292373622455925) Other hammer toe(s) (acquired), left foot (M20.42) Active confirmed Problem [id number] 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 Plan Of Treatment Pending Test Test Name Order Date X ray : Foot, left 3V 04/10/2017 X ray : Foot, left 3V 07/20/2021 X ray : Foot, right 3V 04/10/2017 X ray : Foot, right 3V 07/20/2021 [id number], [id number]/[id number], JOINT/BURSA 0 04/26/2017 [id number], [id number]/INJECT, JOINT/BURSA 0 08/09/2017 [id number], J0702- Neuroma/Injection 08/10/19 18 [id number], J0702- Neuroma/Injection 04/26/19 18 Insurance Providers Payer Name Payer Address Payer Phone Subscriber Number Group Number Insured Name Patient Relationship to Insured Coverage Start Date Coverage End Date [employer] [address] [address] [place] [address] [id number] Laurel Berman Self - patient is the insured Medical (General) History Medical History History ICD Code Arthritis asthma Back,Hip,and Knee pain Depression Fibromyalgia Sciatica chronic sinusitis Chicken pox Cholesterol Surgical History Surgery Date(Month/Year) hysterectomy 35 years old cyst removal from wrist 18 years old
--- OUTSIDE RECORDS SUMMARY | 2024-07-17 10:09 | XMS_ITS | Data Portability ---
Author Organization [facility], [address] Address [address] [place] [address] Assessment No assessment recorded. Plan of Treatment Reminders Order Date Submit Date Provider Last Modified By Organization Details Last Modified Time Details Appointments None recorded. Lab rapid SARS CoV 2 Ag, QL IA, respiratory specimen 2022 023 [place] [address] _[facility], [address] [place], [address], 17:35:43 Referral None recorded. Procedures None recorded. Surgeries None recorded. Imaging None recorded. Medication Orders amoxicillin 875 mg tablet [address] [facility], [address] [place] [address], [address], 3 17:37:49 Diflucan 150 mg tablet 2022 023 [facility], [address] [place] [address], [address], 3 17:35:50 Patient TargetsNo targets recorded. Patient Instructions Encounter Date Encounter Id Patient Instructions Last Modified By Organization Details Last Modified Time 04/24/2022 [id number] ear infection (otitis media): care instructions [place] [address] Not available 04/24/2022 17:35:42 You should follow-up with your PCP in 2-3 days, or at any time if your condition does not improve or worsens. Any acute change should prompt a visit to the nearest Emergency Department. [place] [address] Not available 04/24/2022 17:39:58 Reason for Referral None Reported. Results Created Date Observation Date Name Description Value Unit Range Abnormal Flag Note LastModifiedBy Organization Detail LastModifiedTime 04/24/1904/24/2022 rapid SARS CoV 2 Ag, QL IA, respi rator y speci men Unknown Analyte Normal =Negat robin Not Available [facility] [address] [place] [address], [address], 04/24/2022 16:55:05 04/24/19 23 04/24/2022 rapid SARS CoV 2 Ag, QL IA, respi rator y speci men Unknown Analyte negati ve Not Available [address] [address] [place], [address], 04/24/2022 16:55:05 Result Notes None recorded. Problems Name Problem SNOMED Code Status Onset Date Resolution Date Notes Provider Name and Address Organization Details Recorded Time Hyperlipidemia 57851047 Active 2022 TYESHA becerra, PA - [facility] 3 16:53:52 Seasonal affective disorder 437116500 Active 2022 [facility] [...] height Body mass index (BMI) Body weight Pain severity - 0-10 verbal numeric rating [Score] - Reported Respiratory rate Oxygen saturation Oxygen saturation in Arterial blood by Pulse oximetry Heart rate Body temperature Systolic blood pressure Diastolic blood pressure Provider Name and Address Organization Details Last Updated DateTime 157.48 cm 42.1 kg/m2 434872. 25 g 8 18 /min 97 % 97 % 66 /min 98.4 [degF] 120 mm[Hg] 78 mm[Hg] TYESHA TORRES [facility] 16:56:28 Social History Question Answer Notes LastModified by Organizat ion Details LastModified Time Tobacco Smoking Status Never Smoker TYESHA becerra PA [facility] 04/24/2022 16:54:39 What Is Your Level Of Alcohol Consumption? Occasional [email or web address] Information not available 04/24/2022 Do You Use Any Illicit Or Recreational Drugs? No [email or web address] Information not available 04/24/2022 Have You Recently Traveled Abroad? No Information not available 04/24/2022 Do You Or Have You Ever Used Any Other Forms Of Tobacco Or Nicotine? No [email or web address] Information not available 04/24/2022 Sex: Unknown Functional Status None recorded. Mental Status None recorded. Family History Relationship Description Onset Age of this Age Resolved Age Notes LastModified by Organization Details LastModified Time Father No current problems or disability [email or web address] Not available 04/24 16:54:23 Mother No current problems or disability [email or web address] Not available 04/24 16:54:23 Medical History No medical history recorded. Gynecological HistoryNo gynecological history recorded. Obstetrics History GPAL:G 0 P 0 0 0 0 Past Encounters Encounter ID Performer Location Encounter Start Date Encounter Closed Date Diagnosis/Indication Diagnosis SNOMED-CT Code Diagnosis ICD10 Code Diagnosis Note [id number] [address] [place] [address] 04/11/2016 11:38:25 04/11/2016 12:43:59 [id number] [address] [place] [address] 07/27/2021 08:36:44 07/27/2021 10:27:31 [id number] [address] [place] [address] 05/06/2021 11:40:41 05/06/2021 12:28:37 [id number] [address] [place] [address] 05/26/2020 08:03:08 05/26/2020 08:53:25 [id number] Sterling Holliday MD [address] [place] [address] 04/24/2022 15:56:23 04/24/2022 17:36:34 Acute left otitis media 960902442 H66.92 Health Concerns Section Related Observation LastModified by Organization Detai ls LastModified Time None Recorded Concern Status LastModified by Organization Details LastModified Time None Recorded Advance Directives Directive None Recorded Payers Encounter Date Sequence Insurance Name Policy Number Policy Choi Covered Member ID Choi Member ID Guarantor Name 05/26/2020 1 [employer] [id number] Laurel Berman [id number] [id number] Laurel Berman 05/06/2021 1 [employer] [id number] Laurel Berman [id number] Laurel Berman 07/27/2021 1 [employer] [id number] Laurel Berman [id number] 048 Laurel Berman 04/24/2022 1 [employer] [place] [id number] Laurel Berman [id number] 048 Laurel Berman Notes Date Note Type [...] Holliday MD [address] [place], [address], PA - [facility] 04/24/2022 17:40:09 OBGyn Episode No OBEpisode recorded.
== END 2024-07-17 10:16 | disposition home or self-care (01) ==
LOC: HO.HMCC 09:35
PROVIDERS: PCP Internal Medicine; Visit Provider Internal Medicine
DX: M54.16 Radiculopathy, lumbar region (principal); F33.0 Major depressive disorder, recurrent, mild; E66.01 Morbid (severe) obesity due to excess calories; Z68.41 Body mass index [BMI] 40.0-44.9, adult; M79.644 Pain in right finger(s); D17.24 Benign lipomatous neoplasm of skin and subcutaneous tissue of left leg; E78.9 Disorder of lipoprotein metabolism, unspecified; R31.29 Other microscopic hematuria; K59.01 Slow transit constipation; M79.7 Fibromyalgia; G47.30 Sleep apnea, unspecified

== ENCOUNTER 2024-07-17 09:34 | Outpatient (REF) | payer OTHER, SELFPAY ==
[2024-07-17 13:15] LABS: MANUAL DIFF FLAG NO
[2024-07-17 13:27] LABS: Basophils Absolute Auto 0.1 X10*3/uL (0.0-0.2); Basophils Percent Auto 0.9 % (0-2); Eosinophils Absolute Auto 0.2 X10*3/uL (0.0-0.4); Eosinophils Percent Auto 2.2 % (0-4); Hematocrit 39.1 % (37.0-47.0); Hemoglobin 12.4 g/dl (12.0-16.0); Imm Gran Abs Auto 0.05 X10*3/uL (0.00-0.03); Imm Gran Pct Auto 0.6 % (0.0-0.4); Lymphocytes Absolute Auto 3.4 X10*3/uL (1.2-4.9); Lymphocytes Percent Auto 42.5 % (20-40); Mean Corpuscular HGB Conc 31.7 g/dl (31.0-35.0); Mean Corpuscular Hemoglobin 27.4 pg (27.0-33.0); Mean Corpuscular Volume 86.5 fL (80.0-98.0); Mean Platelet Volume 11.8 fL (9.4-12.3); Monocytes Absolute Auto 0.5 X10*3/uL (0.1-1.2); Monocytes Percent Auto 5.6 % (2-11); Neutrophils Absolute Auto 3.9 x10*3/uL (2.0-8.3); Neutrophils Percent Auto 48.2 % (45-73); Platelet Count 222 X10*3/uL (160-400); Red Blood Count 4.52 X10*6/uL (4.20-5.50); Red Cell Distribution Width 14.8 % (11.0-16.0); White Blood Count 8.1 X10*3/uL (4.8-10.8)
[2024-07-17 14:12] LABS: Vitamin B12 359 pg/mL (200-900)
[2024-07-17 14:20] LABS: Alanine Aminotransferase 16 U/L (0-31); Albumin Level 3.8 g/dL (3.5-5.0); Anion Gap 10 (12-20); Aspartate Amino Transferase 22 U/L (5-31); Bilirubin Total 0.4 mg/dL (0.0-1.0); Blood Urea Nitrogen 17 mg/dL (9-16); Calcium 9.4 mg/dL (8.4-10.2); Carbon Dioxide 28 mmol/L (22-29); Chloride 107 mmol/L (96-108); Cholesterol 240 mg/dL (<200); Estimated Glomerular Filt Rate > 60; Glucose Fasting 88 mg/dL (60-99); HDL Cholesterol 79 mg/dL (>40); LDL Cholesterol Calculated 150 mg/dL (<100); Sodium 141 mmol/L (135-145); Total Protein 7.3 g/dL (6.5-8.0); Triglycerides 55 mg/dL (<150)
[2024-07-17 14:35] LABS: TSH reflex Free T4 1.54 uIU/mL (0.32-4.0)
[2024-07-17 19:09] LABS: Alkaline Phosphatase 76 U/L (39-117)
[2024-07-22 15:38] LABS: Vitamin D 25-OH, D2 17 ng/mL; Vitamin D 25-OH, D3 8 ng/mL; Vitamin D 25-OH, Total 25 ng/mL (30-100)
== END 2024-07-17 09:35 | disposition home or self-care (01) ==
LOC: HO.HMGCLDS 09:34
PROVIDERS: PCP Internal Medicine; Visit Provider Internal Medicine
DX: M54.16 Radiculopathy, lumbar region (principal); M79.644 Pain in right finger(s); F33.0 Major depressive disorder, recurrent, mild; D17.24 Benign lipomatous neoplasm of skin and subcutaneous tissue of left leg; E78.9 Disorder of lipoprotein metabolism, unspecified; E66.01 Morbid (severe) obesity due to excess calories; Z68.41 Body mass index [BMI] 40.0-44.9, adult; R31.29 Other microscopic hematuria; K59.01 Slow transit constipation; M79.7 Fibromyalgia; G47.30 Sleep apnea, unspecified
CPT/HCPCS: 36415; 80053; 80061; 82306; 82607; 84443; 85025; 96127

== ENCOUNTER 2024-07-21 13:57 | Outpatient (AMB) | payer OTHER, SELFPAY ==
[2024-07-21 13:59] VITALS: BP 110/74; PULSE 67; O2SAT 97; BMI 43.4
--- NOTE | 2024-07-21 13:59 | MHC.OFFVIS ---
Vital Signs 07/21/24 13:59 Height 5 ft 2 in Weight 237 lb 6 oz BMI 43.4 BP 110/74 Blood Pressure Location Rt brachial Position Sitting Pulse 67 Pulse Source Pulse Oximeter Pulse Oximetry (%) 97 Oxygen Delivery Method Room Air Intake Visit Reasons: 4 mo follow up Intake Note: Patient presents follow up KO medication. Compliance in chart. Mask straps hurt back of neck. lot of neck pain Allergies anise seed Allergy (Unknown, Uncoded 04/07/24 13:21) unknown black licorice Allergy (Unknown, Uncoded 04/07/24 13:21) unknown grass pollen Allergy (Unknown, Uncoded 04/07/24 13:21) unknown HPI Comments Details: 64 year old female with h/o bilateral LE neuropathy presents today for follow up of KO. She has been doing well continues have insomnia through the night and stays up until 2am. She gets home from work and at 10 PM and types her notes until 1 AM after dinner. She averages 5 hours of sleep and that is her baseline even when on vacations. At 3 AM she takes off the mask because it irritates her nose, the air is too cold, caused sores on her nose, she was getting sick. The mask continues to have a tight fit or too loose of a fit we discussed self care today, and provided patient education re; sleep. She continues to have leg pain and wakes up 3 times a week with cramps and writhing pain in both legs L side is burning thigh(Quads) and back side of the leg when she sleeps on it, she is a side sleeper, NCS Neuropathy bilateral LE. She says it feels sensitive to touch, and feels a lump, and knot which moves in her front thigh area she noticed it 6 months ago, is not painful lipoma r. thigh. She has stress headaches 2X a week in the temporal area, she takes Motrin and it goes away. Sometimes she forgets to eat and has blurry vision as she is a T2 diabetic. She has sensitivity to light and sounds (screechy sounds), smells, can't tolerate the dog food isle and allergic to licorice. Denies nausea and vomiting, vertigo or dizziness, forgetfulness, and snoring. She cleans mask, tubing, uses distilled water, and changes filters as appropriate. She has Fibromyalgia, and gets massages at her gym daily for ten minutes. Would like to start working out regularly is concerned about her weight. Discouraged by her back injury years ago. Mood is not great but taking steps to improve her outlook and take better care of herself. 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 [facility] Medical History (Updated 07/21/24 @ 17:28 by Nxion Duckworth PA-C) Carpal tunnel syndrome History of recurrent UTI (urinary tract infection) Annual physical exam Lipid disorder Depression, major, recurrent Surgical History H/O colonoscopy History of ganglion cyst History of hysterectomy Family History Father Diabetes mellitus Mother Diabetes mellitus CVD (cardiovascular disease) Stroke Sister No problems noted. Social History Household Members: None Housing: Condominium Alcohol intake: current Alcohol intake frequency: does not drink Patient Tobacco Use Status: Never used Tobacco e-Cigarette/Vaping Use: Never Used service: No Current occupational status: employed Cognitive needs: No Hearing needs: No Vision needs: Yes Physical Exam Vital Signs: Last Vital Signs Pulse 67 07/21/24 13:59 BP 110/74 07/21/24 13:59 Pulse Ox 97 07/21/24 13:59 Oxygen Delivery Method Room Air 07/21/24 13:59 BMI result Body Mass Index 43.4 Const General: cooperative, comfortable and no acute distress Nutritional Appearance: obese Orientation/consciousness: patient oriented x3 Eyes Pupils: Equal, round and reactive pupils present Neck Neck: Yes full ROM Resp Effort & Inspection: normal respiratory effort and able to speak in complete sentences Neuro General: patient oriented x3 Cranial nerves: Yes Equal, round and reactive pupils present, Yes Midline tongue present and Yes Ability to bilaterally elevate shoulders present Psych Appearance: grossly normal Affect: normal affect Attitude: cooperative Thought process: Normal thought process present Insight: Good insight present (Psych) Judgement: Good judgement present (Psych) Results Reviewed Results Reviewed: KO compliance 05/21/2024 - 06/2024 >4 hours 70/90 days and 78% Avg total use is 6 hours and 9min APAP press [id number] Therapy [id number] and leaks at 20.4cmH20 AHI is 1 Serial # [id number] Assessment & Plan Assessment & Plan (1) Leg paresthesia: Code(s): R20.2 - Paresthesia of skin Category: Medical (2) Left lumbar radiculopathy: Code(s): M54.16 - Radiculopathy, lumbar region Category: Medical (3) Pain of right thumb: Code(s): M79.644 - Pain in right finger(s) Category: Medical (4) Numbness and tingling in both hands: Code(s): R20.0 - Anesthesia of skin; R20.2 - Paresthesia of skin Category: Medical Plan Sciatica Will increase Pregablin (lyrica) from 75mg po daily to 150mg qhs as patient is continuing to have bilateral leg pain at night. Magnesium aspart, citrate, oxide (400mg) 1 capsule at bedtime. f/u for KO compliance continue using CPAP and for more than 4-6 hours each night. Upper extremity bilateral numbness and tingling hands and fingers- wrist brace sunita, will discuss PT. EMG with NCS and PT for carpal tunnels syndrome? Numbness and tingling L>R hand, bilateral pain. Orders: Orders NE electromyogram (EMG) Today M79.644 - Pain in right finger(s), R20.0 - Anesthesia of skin, R20.2 - Paresthesia of skin NE nerve conduction velocity Today M79.644 - Pain in right finger(s), R20.0 - Anesthesia of skin, R20.2 - Paresthesia of skin Medications: Changed From pregabalin 75 mg PO BEDTIME 30 days 30 caps 3RF M54.16 - Radiculopathy, lumbar region, R20.2 - Paresthesia of skin To pregabalin May take one 150mg PO daily at night for nerve pain. 150 mg PO BEDTIME 30 caps 3RF numbness and tingling of legs 30 days MDD 150 mg M54.16 - Radiculopathy, lumbar region, R20.2 - Paresthesia of skin Patient Instructions: Sleep Hygiene provided: set a scheduled bedtime and wake time to help regulate the circadian rhythm and balance the release of pituitary hormones. Sleep in a dark room, temperatures below 68 degrees, and no devices n bed. Limit caffeinated products 6 hours prior to bed, and limit fluids 2-4 hours prior to bed. Gentle night yoga, diffusing essential oils, and playing soft music can be relaxing. Continue using CPAP daily and for more than 4 hours a night for good outcomes and refreshed sleep. EMG / NCS bilateral hands numbness and Wrist brace at [facility] [place]. Increasing lyrica to 150mg PO for sciatica. Continue taking magnesium and focus on self care practices as we discussed, with diet, exercise and water intake. Coding Level of Care Code Est Pt Level 4 (78241) Complex EM visit Add On G2211 Diagnoses Leg paresthesia R20.2 Left lumbar radiculopathy M54.16 Pain of right thumb M79.644 Numbness and tingling in both hands R20.0; R20.2 Time Spent (min) 35
--- OUTSIDE RECORDS SUMMARY | 2024-07-21 16:45 | XMS_ITS | Data Portability ---
Author Organization [facility], [address] Address [address] [place] [address] Assessment No assessment recorded. Plan of Treatment Reminders Order Date Submit Date Provider Last Modified By Organization Details Last Modified Time Details Appointments None recorded. Lab rapid SARS CoV 2 Ag, QL IA, respiratory specimen 2022 023 [place] [address] _[facility], [address] [place], [address], 17:35:43 Referral None recorded. Procedures None recorded. Surgeries None recorded. Imaging None recorded. Medication Orders amoxicillin 875 mg tablet [address] [facility], [address] [place] [address], [address], 17:37:49 Diflucan 150 mg tablet 2022 023 [facility], [address] [place] [address], [address], 17:35:50 Patient TargetsNo targets recorded. Patient Instructions Encounter Date Encounter Id Patient Instructions Last Modified By Organization Details Last Modified Time 04/24/2022 [id number] ear infection (otitis media): care instructions [place] [id number] Not available 04/24/2022 17:35:42 You should follow-up with your PCP in 2-3 days, or at any time if your condition does not improve or worsens. Any acute change should prompt a visit to the nearest Emergency Department. [place] [id number] Not available 04/24/2022 17:39:58 Reason for Referral None Reported. Results Created Date Observation Date Name Description Value Unit Range Abnormal Flag Note LastModifiedBy Organization Detail LastModifiedTime 04/24/1904/24/2022 rapid SARS CoV 2 Ag, QL IA, respi rator y speci men Unknown Analyte Normal =Negat robin Not Available [facility] [address] [place] [address], [address], 04/24/2022 16:55:05 04/24/19 23 04/24/2022 rapid SARS CoV 2 Ag, QL IA, respi rator y speci men Unknown Analyte negati ve Not Available [address] [address] [place], [address], 04/24/2022 16:55:05 Result Notes None recorded. Problems Name Problem SNOMED Code Status Onset Date Resolution Date Notes Provider Name and Address Organization Details Recorded Time Hyperlipidemia 38875509 Active 2022 TYESHA becerra, PA - [facility] 3 16:53:52 Seasonal affective disorder 842544805 Active 2022 [facility], [facility] - [facility] [...] Last Updated DateTime 157.48 cm 42.1 kg/m2 979694. 25 g 8 18 /min 97 % 97 % 66 /min 98.4 [degF] 120 mm[Hg] 78 mm[Hg] TYESHA TORRES [employer] 16:56:28 Social History Question Answer Notes LastModified by Organizat ion Details LastModified Time Tobacco Smoking Status Never Smoker TYESHA becerra PA [facility] 04/24/2022 16:54:39 What Is Your Level Of Alcohol Consumption? Occasional [email or web address] Information not available 04/24/2022 Do You Use Any Illicit Or Recreational Drugs? No Information not available 04/24/2022 Have You Recently Traveled Abroad? No [email or web address] Information not available 04/24/2022 Do You Or Have You Ever Used Any Other Forms Of Tobacco Or Nicotine? No [email or web address] Information not available 04/24/2022 Sex: Unknown Functional Status None recorded. Mental Status None recorded. Family History Relationship Description Onset Age of this Age Resolved Age Notes LastModified by Organization Details LastModified Time Father No current problems or disability [email or web address] Not available 04/24 16:54:23 Mother No current problems or disability [email or web address] Not available 04/24 16:54:23 Medical History No medical history recorded. Gynecological HistoryNo gynecological history recorded. Obstetrics History GPAL:G 0 P 0 0 0 0 Past Encounters Encounter ID Performer Location Encounter Start Date Encounter Closed Date Diagnosis/Indication Diagnosis SNOMED-CT Code Diagnosis ICD10 Code Diagnosis Note [id number] [address] [place] [address] 04/11/2016 11:38:25 04/11/2016 12:43:59 [id number] [address] [place] [address] 07/27/2021 08:36:44 07/27/2021 10:27:31 [id number] [address] [place] [address] 05/06/2021 11:40:41 05/06/2021 12:28:37 [id number] [address] [address] [place] [address] 05/26/2020 08:03:08 05/26/2020 08:53:25 [id number] Sterling Holliday MD [address] [place] [address] 04/24/2022 15:56:23 04/24/2022 17:36:34 Acute left otitis media 412553312 H66.92 Health Concerns Section Related Observation LastModified by Organization Detai ls LastModified Time None Recorded Concern Status LastModified by Organization Details LastModified Time None Recorded Advance Directives Directive None Recorded Payers Encounter Date Sequence Insurance Name Policy Number Policy Choi Covered Member ID Choi Member ID Guarantor Name 05/26/2020 1 [employer] [id number] Laurel Berman [id number] Laurel Berman 05/06/2021 1 [employer] [id number] Laurel Berman [id number] [id number] Laurel Berman 07/27/2021 1 [employer] [id number] Laurel Berman [id number] Laurel Berman 04/24/2022 1 [employer] [id number] Laurel Berman [id number] 048 Laurel Berman Notes Date Note Type [...] Holliday MD [address] [place], [address], PA - [facility] 04/24/2022 17:40:09 OBGyn Episode No OBEpisode recorded.
--- OUTSIDE RECORDS SUMMARY | 2024-07-21 16:45 | XMS_ITS | Patient Health Record ---
Author [facility] Address [address] [facility] [address] [place] [address] Care Team Providers Care Supervisor Painting Department Name Role Phone Homero HERNANDES, [facility] Primary Care Provider Liang Wallis Unavailable [phone] Allergies No Known Allergies Reason For Referral [...] primary osteoarthritis of the ankle and/or foot (120177642) Primary osteoarthritis , right ankle and foot (M19.071) Active confirmed Problem Localized, primary osteoarthritis of the ankle and/or foot (763817617) Primary osteoarthritis , left ankle and foot (M19.072) Active confirmed Problem Acquired hammer toe of right foot (2827562223299068) Other hammer toe(s) (acquired), right foot (M20.41) Active confirmed Problem Acquired hammer toe of left foot (5376697317966740) Other hammer toe(s) (acquired), left foot (M20.42) Active confirmed Problem 508828476 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 Plan Of Treatment Pending Test Test Name Order Date X ray : Foot, left 3V 04/10/2017 X ray : Foot, left 3V 07/20/2021 X ray : Foot, right 3V 04/10/2017 X ray : Foot, right 3V 07/20/2021 [id number], [id number]/INJECT, JOINT/BURSA 0 04/26/2017 96346, [id number]/INJECT, JOINT/BURSA 0 08/09/2017 65207, J0702- Neuroma/Injection 08/10/19 18 64757, J0702- Neuroma/Injection 04/26/19 18 Insurance Providers Payer Name Payer Address Payer Phone Subscriber Number Group Number Insured Name Patient Relationship to Insured Coverage Start Date Coverage End Date Blue Benefits [address] [address] [place] [address] [id number] Laurel Berman Self - patient is the insured Medical (General) History Medical History History ICD Code Arthritis asthma Back,Hip,and Knee pain Depression Fibromyalgia Sciatica chronic sinusitis Chicken pox Cholesterol Surgical History Surgery Date(Month/Year) hysterectomy 35 years old cyst removal from wrist 18 years old
== END 2024-07-21 14:55 | disposition home or self-care (01) ==
LOC: HO.HSMS 13:58
PROVIDERS: PCP Internal Medicine; Visit Provider Physician Assistant Medical
DX: R20.2 Paresthesia of skin (principal); M54.16 Radiculopathy, lumbar region; M79.644 Pain in right finger(s); R20.0 Anesthesia of skin
CPT/HCPCS: 99214

== ENCOUNTER → 2024-07-21 13:57 | Outpatient (BNVA) | payer OTHER, SELFPAY | PROVIDERS: PCP Internal Medicine; Visit Provider Physician Assistant Medical ==

== ENCOUNTER 2024-08-10 14:48 | Outpatient (AMB) | payer OTHER, SELFPAY ==
--- OUTSIDE RECORDS SUMMARY | 2024-08-10 14:51 | XMS_ITS | Patient Health Record ---
Author Organization [facility] Address [address] [facility] [address] [facility] [place] [address] Care Team Providers Care Finish Molder Name Role Phone Homero HERNANDES, [facility] Primary Care Provider Liang Wallis Unavailable [phone] Allergies No Known Allergies Reason For Referral [...] primary osteoarthritis of the ankle and/or foot (105493345) Primary osteoarthritis , right ankle and foot (M19.071) Active confirmed Problem Localized, primary osteoarthritis of the ankle and/or foot (143684205) Primary osteoarthritis , left ankle and foot (M19.072) Active confirmed Problem Acquired hammer toe of right foot (9649856067855619) Other hammer toe(s) (acquired), right foot (M20.41) Active confirmed Problem Acquired hammer toe of left foot (9033944201246444) Other hammer toe(s) (acquired), left foot (M20.42) Active confirmed Problem 822990995 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 Plan Of Treatment Pending Test Test Name Order Date X ray : Foot, left 3V 04/10/2017 X ray : Foot, left 3V 07/20/2021 X ray : Foot, right 3V 04/10/2017 X ray : Foot, right 3V 07/20/2021 36958, U8188-DOPHH/INJECT, JOINT/BURSA 0 04/26/2017 38663, W2840-NPDCG/INJECT, JOINT/BURSA 0 08/09/2017 42173, J0702- Neuroma/Injection 08/10/19 18 57860, J0702- Neuroma/Injection 04/26/19 18 Insurance Providers Payer Name Payer Address Payer Phone Subscriber Number Group Number Insured Name Patient Relationship to Insured Coverage Start Date Coverage End Date Blue Benefits [address] [address] [place] [address] [id number] Laurel Berman Self - patient is the insured Medical (General) History Medical History History ICD Code Arthritis asthma Back,Hip,and Knee pain Depression Fibromyalgia Sciatica chronic sinusitis Chicken pox Cholesterol Surgical History Surgery Date(Month/Year) hysterectomy 35 years old cyst removal from wrist 18 years old
--- OUTSIDE RECORDS SUMMARY | 2024-08-10 14:51 | XMS_ITS | Data Portability ---
Author Organization [facility], [address] Address [address] [place] [address] Assessment No assessment recorded. Plan of Treatment Reminders Order Date Submit Date Provider Last Modified By Organization Details Last Modified Time Details Appointments None recorded. Lab rapid SARS CoV 2 Ag, QL IA, respiratory specimen 2022 023 [place] [address] _[facility], [address] [place], [address], 17:35:43 Referral None recorded. Procedures None recorded. Surgeries None recorded. Imaging None recorded. Medication Orders amoxicillin 875 mg tablet [address] [facility], [address] [place] [address], [address], 17:37:49 Diflucan 150 mg tablet 2022 023 [facility], [address] [place] [address], [address], 17:35:50 Patient TargetsNo targets recorded. Patient Instructions Encounter Date Encounter Id Patient Instructions Last Modified By Organization Details Last Modified Time 04/24/2022 [id number] ear infection (otitis media): care instructions [place] [id number] Not available 04/24/2022 17:35:42 You should follow-up with your PCP in 2-3 days, or at any time if your condition does not improve or worsens. Any acute change should prompt a visit to the nearest Emergency Department. [place] [id number] Not available 04/24/2022 17:39:58 Reason for Referral None Reported. Results Created Date Observation Date Name Description Value Unit Range Abnormal Flag Note LastModifiedBy Organization Detail LastModifiedTime 04/24/1904/24/2022 rapid SARS CoV 2 Ag, QL IA, respi rator y speci men Unknown Analyte Normal =Negat robin Not Available [facility] [address] [place] [address], [phone], 04/24/2022 16:55:05 04/24/19 23 04/24/2022 rapid SARS CoV 2 Ag, QL IA, respi rator y speci men Unknown Analyte negati ve Not Available [id number] [address] [place], [address], 04/24/2022 16:55:05 Result Notes None recorded. Problems Name Problem SNOMED Code Status Onset Date Resolution Date Notes Provider Name and Address Organization Details Recorded Time Hyperlipidemia 44120807 Active 2022 TYESHA becerra, [place] - [facility] 16:53:52 Seasonal affective disorder 322521125 Active 2022 [facility], [facility] - [facility] [...] Last Updated DateTime 157.48 cm 42.1 kg/m2 793591. 25 g 8 18 /min 97 % 97 % 66 /min 98.4 [degF] 120 mm[Hg] 78 mm[Hg] TYESHA TORRES [employer] 16:56:28 Social History Question Answer Notes LastModified by [employer] Details LastModified Time Tobacco Smoking Status Never Smoker TYESHA becerra [employer] 04/24/2022 16:54:39 Have You Recently Traveled Abroad? No [email or web address] Information not available 04/24/2022 Sex: Unknown Functional Status Question Answer Note LastModified by [employer] Details LastModified Time Do you use any illicit or recreational drugs? No [email or web address] Information not available 04/24/2022 Do you or have you ever used any other forms of tobacco or nicotine? No [email or web address] Information not available 04/24/2022 What is your level of alcohol consumption? Occasional [email or web address] Information not available 04/24/2022 Mental Status None recorded. Family History Relationship Description Onset Age of this Age Resolved Age Notes LastModified by Organization Details LastModified Time Father No current problems or disability [email or web address] Not available 04/24 16:54:23 Mother No current problems or disability [email or web address] Not available 04/24 16:54:23 Medical History No medical history recorded. Gynecological HistoryNo gynecological history recorded. Obstetrics History GPAL:G 0 P 0 0 0 0 Past Encounters Encounter ID Performer Location Encounter Start Date Encounter Closed Date Diagnosis/Indication Diagnosis SNOMED-CT Code Diagnosis ICD10 Code Diagnosis Note [id number] [facility] [address] [place] [address] 04/11/2016 11:38:25 04/11/2016 12:43:59 [id number] [address] [place] [address] 07/27/2021 08:36:44 07/27/2021 10:27:31 [id number] [address] [place] [address] 05/06/2021 11:40:41 05/06/2021 12:28:37 [id number] [facility] [facility] [address] [place] [address] 05/26/2020 08:03:08 05/26/2020 08:53:25 [id number] Sterilng Holliday MD [facility] [address] [place] [address] 04/24/2022 15:56:23 04/24/2022 17:36:34 Acute left otitis media 225643729 H66.92 Health Concerns Section Related Observation LastModified by Organization Detai ls LastModified Time None Recorded Concern Status LastModified by Organization Details LastModified Time None Recorded Advance Directives Directive None Recorded Payers Insurance Date Sequence Insurance Name Policy Number Policy Choi Covered Member ID Choi Member ID Guarantor Name 04/25/2022 1 [employer] [place]) [id number] Laurel Berman [id number] Laurel Berman Notes Date Note Type [...] radiating down into neck Sterling Holliday MD [address] [place], [place] [address]ress [place], [address], [place] - [facility] 04/24/2022 17:40:09 OBGyn Episode No OBEpisode recorded.
--- NOTE | 2024-08-10 14:57 | A.OFFVIS_ITS ---
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 Patient complains of pain on the basal aspect of the right thumb as well as the dorsal aspect of the hand, radiating up the arm. Denies numbness or tingling. Denies injuries or surgeries to the right hand. Patient reports she returned back to work recently and has been typing a lot. She is wearing a sleeve on her right forearm with some relief. 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 Patient complains of pain on the basal aspect of the right thumb as well as the dorsal aspect of the hand, radiating up the arm. Denies numbness or tingling. Denies injuries or surgeries to the right hand. Patient reports she returned back to work recently and has been typing a lot. She is wearing a sleeve on her right forearm with some relief. [facility] Medical History (Updated 08/10/24 @ 16:54 by GERARD Doss) Carpal tunnel syndrome History of recurrent UTI (urinary tract infection) Annual physical exam Lipid disorder Depression, major, recurrent Surgical History H/O colonoscopy History of ganglion cyst History of hysterectomy Family History Father Diabetes mellitus Mother Diabetes mellitus CVD (cardiovascular disease) Stroke Sister No problems noted. Social History Household Members: None Housing: Condominium Alcohol intake: current Alcohol intake frequency: does not drink Patient Tobacco Use Status: Never used Tobacco e-Cigarette/Vaping Use: Never Used service: No Current occupational status: employed Cognitive needs: No Hearing needs: No Vision needs: Yes Review of Systems Const All systems reviewed & are unremarkable except as noted in HPI and below Physical Exam Vital Signs: BMI result Body Mass Index 43.3 Extrem Other: Patient is alert, oriented, and in no acute distress. Neuro: Normal sensation of the tips of all digits of the right hand at this time Vascular: Cap refill brisk Pain: Tenderness to palpation noted of the right radial styloid Tenderness to palpation of the lateral epicondyle of the right elbow No tenderness to palpation of the ulnar styloid, anatomical snuffbox, or elsewhere in the right hand or wrist Positive Cozen's test on the right Negative reverse Cozen's test on the right Positive Bridger test on the right ROM: Patient is able to make a closed fist and extend all digits of the right hand fully without difficulty Pronation supination full and Intact Patient is able to extend the right elbow to 0 degrees and flex to approximately 120 degrees without difficulty Skin: No lacerations or abrasions. General: No ecchymosis, erythema, or evidence of infection. Psych: Appears grossly normal Affect normal Attitude cooperative Office Procedures AMB Tendon Injection Tendon Injection [id number]-[id number] Tendon Sheath Injection All charges added?: Procedure code (CPT) selection complete Assessment & Plan Assessment & Plan (1) De Quervain's tenosynovitis, right: Code(s): M65.4 - Radial styloid tenosynovitis [de Quervain] Category: Medical (2) Right lateral epicondylitis: Code(s): M77.11 - Lateral epicondylitis, right elbow Category: Medical Plan 1. De Quervain tenosynovitis, right Patient is educated about this condition Patient is educated about the typical treatment course Patient would like to proceed with steroid injection at this time Injection #1: The risks and benefits of a steroid injection including but not limited to risk of damage to blood vessels, nerves, tendons, infection, skin bleaching, failure to improve symptoms, increased pain, and possible need for further injections or other intervention were discussed with the patient and the patient wishes to proceed with the steroid injection. Once consent was obtained, I sterilely prepped the area over the 1st dorsal compartment of the right thumb. I then injected the 1st dorsal compartment with a combination of 1 mL of dexamethasone (4mg/ml), and 1% lidocaine. The patient tolerated the procedure well with no complications and good resolution of their symptoms prior to leaving clinic. If the patient continues to have pain 6-8 weeks following this injection, they may call to schedule appointment to discuss alternative treatment options 2. Lateral epicondylitis, right Patient is educated about this condition Patient is educated about the typical treatment course At this time, patient is provided with lateral epicondylitis offloading brace Patient is also referred to OT for range of motion and strengthening of the right elbow in the setting of lateral epicondylitis Follow-up as needed Orders: Orders OT Evaluation and Treatment Today M65.4 - Radial styloid tenosynovitis [de Quervain], M77.11 - Lateral epicondylitis, right elbow Coding Level of Care Code New Pt Level 3 (96174) Diagnoses De Quervain's tenosynovitis, right M65.4 Right lateral epicondylitis M77.11 CPT Codes Tendon Injection - Tendon Injection 1: [id number] Tendon Sheath Injection ([id number])
[2024-08-10 14:58] VITALS: BMI 43.3
== END 2024-08-10 15:27 | disposition home or self-care (01) ==
LOC: HO.HOS 14:48
PROVIDERS: PCP Internal Medicine
DX: M65.4 Radial styloid tenosynovitis [de Quervain] (principal); M77.11 Lateral epicondylitis, right elbow
CPT/HCPCS: 20550; 99203

== ENCOUNTER → 2024-08-10 14:48 | Outpatient (BNVA) | payer OTHER, SELFPAY | PROVIDERS: PCP Internal Medicine | DX: M65.4 Radial styloid tenosynovitis [de Quervain] (principal); M77.11 Lateral epicondylitis, right elbow | CPT/HCPCS: 20550; J1100; J2003 ==

== ENCOUNTER 2024-08-14 11:41 | Outpatient (AMB) | payer OTHER, SELFPAY ==
--- NOTE | 2024-08-14 11:49 | MHC.OFFVIS ---
Vital Signs 08/14/24 11:55 Height 5 ft 2 in Weight 235 lb 6 oz BMI 43.0 BP 167/75 H Blood Pressure Location Rt brachial Position Sitting Pulse 70 Pulse Source Pulse Oximeter Pulse Oximetry (%) 99 Oxygen Delivery Method Room Air Intake Visit Reasons: Radiculopathy, lumbar region Intake Note: Pain today 11/08 Home Health Physical Therapist Required: No Accompanied by: Self / Same As Patient Allergies anise seed Allergy (Unknown, Uncoded 08/10/24 14:58) unknown black licorice Allergy (Unknown, Uncoded 08/10/24 14:58) unknown grass pollen Allergy (Unknown, Uncoded 08/10/24 14:58) unknown HPI Comments Details: The patient is a 64-year-old female presenting with chronic lumbar back pain radiating to the left leg. Her history of sciatica has been longstanding, but recently increased in severity with pain described as kaya to a lightning bolt through her thigh in the last two to three months. The discomfort exacerbates with activities such as walking, leading to increased lower back pain. Previous management has included Motrin, Flexeril, and more recently Lyrica, with varying degrees of success. Additionally, she has a soft tissue mass presumed to be a lipoma, present for several months without significant changes in appearance or symptoms, aside from tenderness. - Pain onset: Many years, Two to three months of increased severity - Quality: Lightning bolt sensation - Primary location: Lower back into the left thigh - Radiation: Down the leg, occasionally past the knee - Aggravating factors: Walking, exercise - Alleviating factors: Stretching, medications (some relief) - Impact on activities: Disrupts sleep and daily functioning, specifically after physical activity - Affect: Sleep disturbance due to pain - Analgesia: - Current medication: Lyrica, with marginal improvement - Previous medications: Motrin 800, Flexeril - Adverse Effects: None reported from current medications - Activities of Daily Living: Pain affects walking, exercise, and typing duties, limiting functionality - Aberrant Drug-Related Behaviors: None reported or observed [facility] Medical History (Updated 08/14/24 @ 12:30 by Yeimi Lujan APRN, HOUSE FURNISHINGS SUPERVISOR) Carpal tunnel syndrome History of recurrent UTI (urinary tract infection) Annual physical exam Lipid disorder Depression, major, recurrent Surgical History H/O colonoscopy History of ganglion cyst History of hysterectomy Family History Father Diabetes mellitus Mother Diabetes mellitus CVD (cardiovascular disease) Stroke Sister No problems noted. Social History Household Members: None Housing: Condominium Alcohol intake: current Alcohol intake frequency: does not drink Patient Tobacco Use Status: Never used Tobacco e-Cigarette/Vaping Use: Never Used service: No Current occupational status: employed Cognitive needs: No Hearing needs: No Vision needs: Yes Review of Systems Const Details: - Musculoskeletal: Reports chronic lumbar back pain and left leg radiating pain; Denies specific swelling - Neurological: Reports current sciatica symptoms; Denies new onset weakness or paralysis - General: Reports difficulty sleeping due to pain Physical Exam Vital Signs: Last Vital Signs Pulse 70 08/14/24 11:55 BP 167/75 H 08/14/24 11:55 Pulse Ox 99 08/14/24 11:55 Oxygen Delivery Method Room Air 08/14/24 11:55 BMI result Body Mass Index 43.0 General: awake, alert, oriented. Answers questions appropriately. Fully engaged in examination. Skin: warm, dry, intact HEENT: Normocephalic. Hearing intact. Cardiac: External chest normal in appearance. Respiratory: No cough, audible wheezing or stridor. Abdomen: without gross distension. MS: No obvious swelling or deformities. Able to transition from sit to stand unassisted. Ambulates with bilaterally normal heel strike and toe off Tenderness over midline lumbar vertebrae and lumbar paraspinal muscles Nontender over bilateral PSIS SLR positive on the left Bilateral lower extremity strength 5/5 Negative footdrop, negative clonus Neurological: Oriented to person, place, time and situation. Thought process intact. No gait abnormalities appreciated. Psychiatric: Appropriate mood and affect. Good judgment and insight. Assessment & Plan Assessment & Plan (1) Left lumbar radiculopathy: Code(s): M54.16 - Radiculopathy, lumbar region Category: Medical (2) Lumbar spondylosis: Code(s): M47.816 - Spondylosis without myelopathy or radiculopathy, lumbar region Category: Medical Plan The patient will undergo lumbar spine X-rays to identify any structural issues, with an MRI to follow if physical therapy fails to alleviate symptoms. Medication adjustments include the continued use of Lyrica, possibly during the day for better symptom management, and Flexeril at night for sleep improvement. The patient will begin physical therapy and follow up to determine effectiveness, aiming to address chronic pain and improve daily function. Observations regarding a secondary issue, a possible lipoma, have been discussed with plan to follow up with her primary care physician for continued monitoring. I explained the significance of the current symptomatology, attributing potential nerve involvement in lumbar regions as a cause for the electrical ?lightning bolt? sensation. I emphasized the importance of imaging, effectively demonstrating this through the initial step of obtaining X-rays and potentially MRI after fulfilling insurance protocols. The necessity of commencing physical therapy was discussed, as its documentation is crucial for further imaging. Medication management goals were adjusted to improve pain control and sleep. Risks of chronic NSAID use and the potential benefits and side effects of the current medication regime, including Lyrica and Flexeril, were addressed. I also instructed on following up with primary care regarding the lipoma for appropriate surveillance, ensuring understanding and alignment on these plans. The patient will return for evaluation post-physical therapy to assess the need for more advanced imaging. Patient was informed and verbally consented to the use of an ambient scribe for clinic note documentation during this visit. Orders: Orders PT Evaluation and Treatment Today M54.16 - Radiculopathy, lumbar region XR lumbar spine 4V min Today M54.16 - Radiculopathy, lumbar region Medications: New cyclobenzaprine 5 mg PO BEDTIME PRN 30 tabs 2RF muscle spasm Patient Instructions: - Obtain X-rays of the lumbar spine as soon as possible. - Start physical therapy as advised; carry out instructed exercises at home. - Take Lyrica as discussed to try for daytime use; monitor the effect on symptoms and adjust as needed. - Use Flexeril at night for sleep improvement. - Follow up with primary care about the thigh lump/lipoma. - Return for follow-up after physical therapy for reassessment and discussion about MRI if needed. Coding Level of Care Code New Pt Level 4 (60190) Complex EM visit Add On G2211 Diagnoses Left lumbar radiculopathy M54.16 Lumbar spondylosis M47.816
--- OUTSIDE RECORDS SUMMARY | 2024-08-14 11:51 | XMS_ITS | Patient Health Record ---
Author Organization [facility] Address [address] [place] [address] Care Team Providers Care Ssis Developer Name Role Phone Homero HERNANDES, [facility] Primary Care Provider Liang Wallis Unavailable [phone] Allergies No Known Allergies Reason For Referral [...] primary osteoarthritis of the ankle and/or foot (701500096) Primary osteoarthritis , right ankle and foot (M19.071) Active confirmed Problem Localized, primary osteoarthritis of the ankle and/or foot (508825108) Primary osteoarthritis , left ankle and foot (M19.072) Active confirmed Problem Acquired hammer toe of right foot (5995442028680925) Other hammer toe(s) (acquired), right foot (M20.41) Active confirmed Problem Acquired hammer toe of left foot (3233085486668204) Other hammer toe(s) (acquired), left foot (M20.42) Active confirmed Problem 002286152 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 Plan Of Treatment Pending Test Test Name Order Date X ray : Foot, left 3V 04/10/2017 X ray : Foot, left 3V 07/20/2021 X ray : Foot, right 3V 04/10/2017 X ray : Foot, right 3V 07/20/2021 03743, [id number]/INJECT, JOINT/BURSA 0 04/26/2017 24041, [id number]/INJECT, JOINT/BURSA 0 08/09/2017 96789, J0702- Neuroma/Injection 08/10/19 18 85889, J0702- Neuroma/Injection 04/26/19 18 Insurance Providers Payer Name Payer Address Payer Phone Subscriber Number Group Number Insured Name Patient Relationship to Insured Coverage Start Date Coverage End Date [employer] Benefits [address] [address] [place] [address] [id number] Laurel Berman Self - patient is the insured Medical (General) History Medical History History ICD Code Arthritis asthma Back,Hip,and Knee pain Depression Fibromyalgia Sciatica chronic sinusitis Chicken pox Cholesterol Surgical History Surgery Date(Month/Year) hysterectomy 35 years old cyst removal from wrist 18 years old
--- OUTSIDE RECORDS SUMMARY | 2024-08-14 11:52 | XMS_ITS | Data Portability ---
Author Organization [facility], [address] Address [address] [place] [address] Assessment No assessment recorded. Plan of Treatment Reminders Order Date Submit Date Provider Last Modified By Organization Details Last Modified Time Details Appointments None recorded. Lab rapid SARS CoV 2 Ag, QL IA, respiratory specimen 2022 023 [place] [id number] _[facility], [address] [place], [address], 17:35:43 Referral None recorded. Procedures None recorded. Surgeries None recorded. Imaging None recorded. Medication Orders amoxicillin 875 mg tablet [address] [facility], [address] [place] [address], [address], 17:37:49 Diflucan 150 mg tablet [address] [facility], [address] [place] [address], [address], 17:35:50 Patient TargetsNo targets recorded. Patient Instructions Encounter Date Encounter Id Patient Instructions Last Modified By Organization Details Last Modified Time 04/24/2022 [id number] ear infection (otitis media): care instructions [place] [id number] Not available 04/24/2022 17:35:42 You should follow-up with your PCP in 2-3 days, or at any time if your condition does not improve or worsens. Any acute change should prompt a visit to the nearest Emergency Department. [place] [id number] Not available 04/24/2022 17:39:58 Reason for Referral None Reported. Results Created Date Observation Date Name Description Value Unit Range Abnormal Flag Note LastModifiedBy Organization Detail LastModifiedTime 04/24/1904/24/2022 rapid SARS CoV 2 Ag, QL IA, respi rator y speci men Unknown Analyte Normal =Negat robin Not Available [facility] [address] [place] [address], [phone], 04/24/2022 16:55:05 04/24/19 23 04/24/2022 rapid SARS CoV 2 Ag, QL IA, respi rator y speci men Unknown Analyte negati ve Not Available [address] [address] [place], [address], 04/24/2022 16:55:05 Result Notes None recorded. Problems Name Problem SNOMED Code Status Onset Date Resolution Date Notes Provider Name and Address Organization Details Recorded Time Hyperlipidemia 31224004 Active 2022 TYESHA becerra, [place] - [facility] 3 16:53:52 Seasonal affective disorder 784950576 Active 2022 [facility], [facility] - [facility] [...] Last Updated DateTime 157.48 cm 42.1 kg/m2 231810. 25 g 8 18 /min 97 % 97 % 66 /min 98.4 [degF] 120 mm[Hg] 78 mm[Hg] TYESHA TORRES [facility] 16:56:28 Social History Question Answer Notes LastModified by [employer] Details LastModified Time Tobacco Smoking Status Never Smoker TYESHA becerra [facility] 04/24/2022 16:54:39 Have You Recently Traveled Abroad? No [email or web address] Information not available 04/24/2022 Sex: Unknown Functional Status Question Answer Note LastModified by [employer] Details LastModified Time Do you use any illicit or recreational drugs? No [email or web address] Information not available 04/24/2022 Do you or have you ever used any other forms of tobacco or nicotine? No [email or web address] Information not available 04/24/2022 What is your level of alcohol consumption? Occasional [email or web address] Information not available 04/24/2022 Mental Status None recorded. Family History Relationship Description Onset Age of this Age Resolved Age Notes LastModified by Organization Details LastModified Time Father No current problems or disability [email or web address] Not available 04/24 16:54:23 Mother No current problems or disability [email or web address] Not available 04/24 16:54:23 Medical History No medical history recorded. Gynecological HistoryNo gynecological history recorded. Obstetrics History GPAL:G 0 P 0 0 0 0 Past Encounters Encounter ID Performer Location Encounter Start Date Encounter Closed Date Diagnosis/Indication Diagnosis SNOMED-CT Code Diagnosis ICD10 Code Diagnosis Note [id number] [facility] [address] [facility] [place] [address] 04/11/2016 11:38:25 04/11/2016 12:43:59 [id number] [address] [place] [address] 07/27/2021 08:36:44 07/27/2021 10:27:31 [id number] [address] [place] [address] 05/06/2021 11:40:41 05/06/2021 12:28:37 [id number] [address] [facility] [address] [address] [place] [address] 05/26/2020 08:03:08 05/26/2020 08:53:25 [id number] Sterling Holliday MD [address] [address] [place] [address] 04/24/2022 15:56:23 04/24/2022 17:36:34 Acute left otitis media 373763534 H66.92 Health Concerns Section Related Observation LastModified by Organization Detai ls LastModified Time None Recorded Concern Status LastModified by Organization Details LastModified Time None Recorded Advance Directives Directive None Recorded Payers Insurance Date Sequence Insurance Name Policy Number Policy Choi Covered Member ID Choi Member ID Guarantor Name 04/25/2022 1 [employer] [place]) [id number] Laurel Berman [id number] Laurel Berman Notes Date Note Type [...] radiating down into neck Sterling Holliday MD [address] [place], [place] [address]ress [place], [address], [place] - [facility] 04/24/2022 17:40:09 OBGyn Episode No OBEpisode recorded.
[2024-08-14 11:55] VITALS: BP 167/75; PULSE 70; O2SAT 99; BMI 43.0
== END 2024-08-14 12:17 | disposition home or self-care (01) ==
PROVIDERS: PCP Internal Medicine; Referring Provider Internal Medicine; Visit Provider Registered Nurse Emergency
DX: M54.16 Radiculopathy, lumbar region (principal); M47.816 Spondylosis without myelopathy or radiculopathy, lumbar region
CPT/HCPCS: 99204

== ENCOUNTER → 2024-08-14 11:41 | Outpatient (BNVA) | payer OTHER, SELFPAY | PROVIDERS: PCP Internal Medicine; Referring Provider Internal Medicine; Visit Provider Registered Nurse Emergency ==

== ENCOUNTER 2024-09-01 10:50 | Outpatient (REF) | payer OTHER, SELFPAY ==
--- NOTE | 2024-09-01 10:53 | EMG_ITS ---
Bilateral median and ulnar motor and sensory studies were performed. Bilateral radial sensory studies were performed and paraspinal muscles were tested with a needle. IMPRESSION: Mild bilateral ulnar neuropathy across cubital tunnel. No evidence of median neuropathy. MD LYNDA Nicole/MARGARITA / [id number]
--- OUTSIDE RECORDS SUMMARY | 2024-09-01 12:29 | XMS_ITS | Patient Health Record ---
Author Organization [facility] Address [address] [facility] [place] [address] Care Team Providers Care Senior Data Modeler Name Role Phone Homero HERNANDES, [facility] Primary Care Provider Liang Wallis Unavailable [phone] Allergies No Known Allergies Reason For Referral [...] primary osteoarthritis of the ankle and/or foot (126359413) Primary osteoarthritis , right ankle and foot (M19.071) Active confirmed Problem Localized, primary osteoarthritis of the ankle and/or foot (067364217) Primary osteoarthritis , left ankle and foot (M19.072) Active confirmed Problem Acquired hammer toe of right foot (1423612308674601) Other hammer toe(s) (acquired), right foot (M20.41) Active confirmed Problem Acquired hammer toe of left foot (4584227803895552) Other hammer toe(s) (acquired), left foot (M20.42) Active confirmed Problem 597561701 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 Plan Of Treatment Pending Test Test Name Order Date X ray : Foot, left 3V 04/10/2017 X ray : Foot, left 3V 07/20/2021 X ray : Foot, right 3V 04/10/2017 X ray : Foot, right 3V 07/20/2021 [id number], [id number]/INJECT, JOINT/BURSA 0 04/26/2017 21472, W6543-GYPCI/INJECT, JOINT/BURSA 0 08/09/2017 56624, J0702- Neuroma/Injection 08/10/19 18 10603, J0702- Neuroma/Injection 04/26/19 18 Insurance Providers Payer Name Payer Address Payer Phone Subscriber Number Group Number Insured Name Patient Relationship to Insured Coverage Start Date Coverage End Date Blue Benefits [address] [address] [place] [address] [id number] Laurel Berman Self - patient is the insured Medical (General) History Medical History History ICD Code Arthritis asthma Back,Hip,and Knee pain Depression Fibromyalgia Sciatica chronic sinusitis Chicken pox Cholesterol Surgical History Surgery Date(Month/Year) hysterectomy 35 years old cyst removal from wrist 18 years old
== END 2024-09-01 10:51 | disposition home or self-care (01) ==
LOC: HO.NEURO 10:50
PROVIDERS: PCP Internal Medicine; Visit Provider Physician Assistant Medical
DX: R20.0 Anesthesia of skin (principal); R20.2 Paresthesia of skin; M79.644 Pain in right finger(s)
CPT/HCPCS: 95886; 95911

== ENCOUNTER 2024-09-25 11:28 | Outpatient (AMB) | payer OTHER, SELFPAY ==
--- NOTE | 2024-09-25 11:31 | A.OFFVIS_ITS ---
Vital Signs 09/25/24 11:33 Height 5 ft 2 in Weight 232 lb BMI 42.4 BP 143/70 H Blood Pressure Location Lt brachial Position Sitting Respiration 18 Pulse 65 Pulse Source Pulse Oximeter Pulse Oximetry (%) 99 Oxygen Delivery Method Room Air Intake Visit Reasons: Follow Up After PT Butt Presser Required: No Allergies anise seed Allergy (Unknown, Uncoded 08/10/24 14:58) unknown black licorice Allergy (Unknown, Uncoded 08/10/24 14:58) unknown grass pollen Allergy (Unknown, Uncoded 08/10/24 14:58) unknown HPI Comments Details: The patient is a 64-year-old female presenting with lower back pain radiating to the left leg. The pain has been persistent and worsens with prolonged sitting or standing, and bending forward exacerbates the discomfort. The patient has tried physical therapy, which did not provide relief, and she uses a heating pad at home for temporary comfort. The pain is described as stiffness in the lower back and left leg laterally to the knee, with no shooting pain to the foot, although she experiences separate foot pain characterized by sensations like bee stings and occasional locking. The patient has attempted [id number]-[id number] medications such as Tylenol and Motrin without significant relief. The patient is also interested in resuming physical activities such as pickleball to aid in weight loss and improve her overall health. - Onset and Timing: Persistent lower back pain radiating to the left leg - Quality and Character: Described as stiffness, no shooting pain to the foot - Primary Location: Lower back and left leg - Exacerbating Factors: Prolonged sitting or standing, bending forward - Relieving Factors: Use of heating pad - Interference with Activities: Difficulty with bending, impacts daily activities like washing dishes - Affect: Pain impacts daily activities and mood, causing frustration - Analgesia: Uses Tylenol and Motrin without significant relief - Activities of Daily Living: Pain affects ability to perform tasks like washing dishes, desires to resume activities like pickleball [facility] Medical History (Updated 09/08/24 @ 12:39 by Nixon Duckworth PA-C) Carpal tunnel syndrome History of recurrent UTI (urinary tract infection) Annual physical exam Lipid disorder Depression, major, recurrent Surgical History H/O colonoscopy History of ganglion cyst History of hysterectomy Family History Father Diabetes mellitus Mother Diabetes mellitus CVD (cardiovascular disease) Stroke Sister No problems noted. Social History Household Members: None Housing: Condominium Alcohol intake: current Alcohol intake frequency: does not drink Patient Tobacco Use Status: Never used Tobacco e-Cigarette/Vaping Use: Never Used service: No Current occupational status: employed Cognitive needs: No Hearing needs: No Vision needs: Yes Review of Systems Const Details: - Musculoskeletal: Reports lower back pain radiating to the left leg, stiffness, and separate foot pain - Neurological: Denies shooting pain to the foot Physical Exam Vital Signs: Last Vital Signs Pulse 65 09/25/24 11:33 Resp 18 09/25/24 11:33 BP 143/70 H 09/25/24 11:33 Pulse Ox 99 09/25/24 11:33 Oxygen Delivery Method Room Air 09/25/24 11:33 BMI result Body Mass Index 42.4 General: awake, alert, oriented. Answers questions appropriately. Fully engaged in examination. Skin: warm, dry, intact HEENT: Normocephalic. Hearing intact. Cardiac: External chest normal in appearance. Respiratory: No cough, audible wheezing or stridor. Abdomen: without gross distension. MS: No obvious swelling or deformities. Able to transition from sit to stand unassisted. Ambulates with bilaterally normal heel strike and toe off Tenderness over midline lumbar vertebrae and lumbar paraspinal muscles Nontender over bilateral PSIS SLR negative bilaterally Neurological: Oriented to person, place, time and situation. Thought process intact. No gait abnormalities appreciated. Psychiatric: Appropriate mood and affect. Good judgment and insight. Results Reviewed Results Reviewed: X-rays pending Assessment & Plan Assessment & Plan (1) Lumbar spondylosis: Code(s): M47.816 - Spondylosis without myelopathy or radiculopathy, lumbar region Category: Medical Plan The patient will undergo diagnostic injections, known as medial branch blocks, to determine the source of her axial back pain. These injections will be performed under x-ray guidance, and the patient will maintain a pain diary to assess the effectiveness of the procedure. If the injections provide significant relief, further treatment options will be discussed. The patient is encouraged to resume physical activities, such as pickleball, to aid in weight management and overall health improvement. Insurance approval is required for the procedure, and once obtained, the patient will be scheduled for the injections. I discussed with the patient the likely diagnosis of degenerative arthritis in the lumbar spine and the associated axial back pain. We reviewed the option of diagnostic injections to confirm the pain source, explaining the procedure involves numbing medicine injected under x-ray guidance. I informed her that the results would help determine further treatment options, and we discussed the need for insurance approval before scheduling the procedure. Patient was informed and verbally consented to the use of an ambient scribe for clinic note documentation during this visit. Patient Instructions: - Schedule diagnostic injections once insurance approval is obtained. - Maintain a pain diary to track relief after injections. - Resume physical activities like pickleball to aid in weight management. Coding Level of Care Code Est Pt Level 3 (53470) Complex EM visit Add On G2211 Diagnoses Lumbar spondylosis M47.816
[2024-09-25 11:33] VITALS: BP 143/70; PULSE 65; RESP 18; O2SAT 99; BMI 42.4
--- OUTSIDE RECORDS SUMMARY | 2024-09-25 12:44 | XMS_ITS | Patient Health Record ---
Author Organization [facility] Address [address] [facility] [place] [address] Care Team Providers Care Technology Applications Teacher Name Role Phone Homero HERNANDES, [facility] Primary Care Provider Liang Wallis Unavailable [phone] Allergies No Known Allergies Reason For Referral [...] primary osteoarthritis of the ankle and/or foot (362350352) Primary osteoarthritis , right ankle and foot (M19.071) Active confirmed Problem Localized, primary osteoarthritis of the ankle and/or foot (178798199) Primary osteoarthritis , left ankle and foot (M19.072) Active confirmed Problem Acquired hammer toe of right foot (1017883598849616) Other hammer toe(s) (acquired), right foot (M20.41) Active confirmed Problem Acquired hammer toe of left foot (8144253083647042) Other hammer toe(s) (acquired), left foot (M20.42) Active confirmed Problem Plantar nerve lesion (285355251) 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 Plan Of Treatment Pending Test Test Name Order Date X ray : Foot, left 3V 04/10/2017 X ray : Foot, left 3V 07/20/2021 X ray : Foot, right 3V 04/10/2017 X ray : Foot, right 3V 07/20/2021 85355, G7225-SFHNW/INJECT, JOINT/BURSA 0 04/26/2017 72313, D8495-QERNR/INJECT, JOINT/BURSA 0 08/09/2017 21339, J0702- Neuroma/Injection 08/10/19 18 38774, J0702- Neuroma/Injection 04/26/19 18 Insurance Providers Payer Name Payer Address Payer Phone Subscriber Number Group Number Insured Name Patient Relationship to Insured Coverage Start Date Coverage End Date Blue Benefits [address] [address] [place] [address] [id number] Laurel Berman Self - patient is the insured Medical (General) History Medical History History ICD Code Arthritis asthma Back,Hip,and Knee pain Depression Fibromyalgia Sciatica chronic sinusitis Chicken pox Cholesterol Surgical History Surgery Date(Month/Year) hysterectomy 35 years old cyst removal from wrist 18 years old
== END 2024-09-25 12:12 | disposition home or self-care (01) ==
LOC: HO.PMC 11:29
PROVIDERS: PCP Internal Medicine; Visit Provider Registered Nurse Emergency
DX: M47.816 Spondylosis without myelopathy or radiculopathy, lumbar region (principal)
CPT/HCPCS: 99213

== ENCOUNTER 2024-11-25 11:09 | Outpatient (REF) | payer OTHER, SELFPAY ==
[2024-11-25 17:58] LABS: Resp Syncy Virus RNA Qual PCR NEGATIVE (Negative); SARS COV2 PCR INHOUSE NEGATIVE (Negative)
== END 2024-11-25 11:10 | disposition home or self-care (01) ==
LOC: HO.LNP 11:09
PROVIDERS: PCP Internal Medicine; Visit Provider Physician Assistant Medical
DX: R05.1 Acute cough (principal); K04.7 Periapical abscess without sinus; R09.89 Other specified symptoms and signs involving the circulatory and respiratory systems
CPT/HCPCS: 87637

== ENCOUNTER 2024-11-25 11:09 | Outpatient (AMB) | payer OTHER, SELFPAY ==
--- OUTSIDE RECORDS SUMMARY | 2024-11-25 12:02 | XMS_ITS | Encounter Summary ---
Author Organization [facility] Address [address] [facility] [address] [place] [address] Phone Care Team Providers Care Manifold Builder Name Role Phone Luz Elena Valentin MD Primary Care Provider [phone] Encounter Details Date Type Department Care Team (Late st Contact Info) Description 05/13/2020 Procedure Pass [facility] Endoscopy Admitting Dept Virtual Department [address] [place] [address] Social History Tobacco Use Types Packs/Day Years Used Date Smoking Tobacco: Never Smokeless Tobacco: Never Comments Unknown Sex and Gender Information Value Date Recorded Sex Assigned at Not on file Legal Sex Female 9:46 PM EDT Gender Identity Not on file Sexual Orientation Not on file documented as of this encounter Plan of Treatment Not on file documented as of this encounter Visit Diagnoses Not on filedocumented in this encounter Care Teams Manifold Builder Relationship Specialty Start Date End Date Luz Elena Valentin MD [address] [facility] [place] [address] PCP - General Internal Medicine 03/31/20 documented as of this encounter Additional Source Comments The information contained in this document represents components of the legal health record. It is not the complete legal health record.[facility]
--- OUTSIDE RECORDS SUMMARY | 2024-11-25 12:02 | XMS_ITS | Clinical Summary ---
Author Organization [facility] Address [address] [address] Phone Care Team Providers Care Zyglo Inspector Name Role Phone Luz Elena Valentin MD Primary Care Provider [phone] Allergies No known active allergies Medications ibuprofen (ADVIL,MOTRIN) 800 MG tablet Take 800 mg by mouth 3 (three) times a day as needed for pain (specific location in comments). Active buPROPion (WELLBUTRIN SR) 150 MG SR 12 hr tablet Take 150 mg by mouth daily. Active cholecalcifero l (VITAMIN D3) 1,000 unit tabletIndicati ons:3,000 units qd Take by mouth daily. Indications: 3,000 units qd Active melatonin, bulk, 100 % Powd by Miscellaneous route. Active FOLIC ACID ORAL Take by mouth daily. Active METHOTREXATE ORAL Take 6 tablets by mouth every 7 days. Active Social History Tobacco Use Types Packs/Day Years Used Date Smoking Tobacco: Never Smokeless Tobacco: Never Education Answer Date Recorded Are you interested in more education? Not on yifan e 07/27/2022 Are you concerned about learning? Not on file 07/27/2022 No 07/27/2022 No 07/27/2022 Digital Access Answer Date Recorded No 08/25/2022 No 08/25/2022 No 08/25/2022 Reliable internet access at home? Not on file 08/25/2022 Device with a working camera? Not on file Comments Unknown Sex and Gender Information Value Date Recorded Sex Assigned at Not on file Legal Sex Female 9:46 PM EDT Gender Identity Not on file Sexual Orientation Not on file Last Filed Vital Signs Vital Sign Reading Time Taken Comments Blood Pressure 122/75 07/08/2018 10:38 AM EDT Pulse 59 07/08/2018 10:38 AM EDT Temperature - - Respiratory Rate - - Oxygen Saturation - - Inhaled Oxygen Concentration - - Weight 104.5 kg (230 lb 6.4 oz) 07/08/2018 10:38 AM EDT Height 157.5 cm (5' 2 ) 07/08/2018 10:3 8 AM EDT Patient reported Body Mass Index 42.14 07/08/2018 10:38 AM EDT Plan of Treatment Health Maintenance Due Date Last Done Comments DEPRESSION SCREENING 1973 HEPATITIS C SCREENING 1979 HIV ONE-TIME SCREENING (18-6 5 YEARS) 1979 PNEUMOCOCCAL VACCINES (50+ years) (1 of 2 - PCV) 1980 ZOSTER VACCINES (1 of 2) 1980 PAP SMEAR 1982 SMOKING STATUS SCREENING (On ce After 26 Yrs) 1987 MAMMOGRAM 2001 COLOGUARD 2006 COLONOSCOPY 2006 COLORECTAL CANCER SCREENING 2006 FIT TEST 2006 FOBT 2006 SIGMOIDOSCOPY 2006 VIRTUAL COLONOSCOPY 2006 COVID-19 VACCINE (3 - Pfizer risk series) 05/27/2020 04/29/2020, 04/08/2020 LIPID PANEL 06/01/2020 06/02/2015 RSV VACCINE (1 - Risk 60-74 years 1-dose series) 2021 Adult Td,Tdap Booster 04/01/2025 04/01/2015 HEPATITIS A VACCINES Aged Out No long er eligible based on patient's age to complete this topic HIB VACCINES Aged Out No longer eligi ble based on patient's age to complete this topic MENINGOCOCCAL VACCINES (ACWY) Aged Out No longer eligible based on patient's age to complete this topic MENINGOCOCCAL VACCINES (B) Aged Out N o longer eligible based on patient's age to complete this topic Medical Devices Not on file Insurance [facility] [employer]EF[employer]MIN[employer] Care Teams Zyglo Inspector Relationship Specialty Start Date End Date Luz Elena Valentin MD [address] [facility] [place] [address] PCP - General Internal Medicine 03/31/20 Additional Source Comments The information contained in this document represents components of the legal health record. It is not the complete legal health record.[facility]
--- OUTSIDE RECORDS SUMMARY | 2024-11-25 12:02 | XMS_ITS | Encounter Summary ---
Author Organization [facility] Address [address] [facility] [address] [place] [address] Phone Care Team Providers Care Deboner Name Role Phone Francoise Tejeda MD Primary Care Provider [phone] Luz Elena Valentin MD Primary Care Provider [phone] Encounter Details Date Type Department Care Team (Latest Contact Info) Description 03/30/2020 Transcribe Orders Virtual Department [address] [place] [address] Elie Billingsley MD [address] [place] [phone] [email or web address] Pre-operative laboratory examination (Primary Dx) Social History Tobacco Use Types Packs/Day Years Used Date Smoking Tobacco: Never Smokeless Tobacco: Never Comments Unknown Sex and Gender Information Value Date Recorded Sex Assigned at Not on file Legal Sex Female 9:46 PM EDT Gender Identity Not on file Sexual Orientation Not on file documented as of this encounter Plan of Treatment Not on file documented as of this encounter Results * COVID-19 PCR Order (04/03/2020 8:01 AM EST) COVID-19 Comment [id number] [facility] COVID Testing Status [place] [facility] Other 04/03/2020 8:01 AM EST 04/03/2020 12:31 PM EST us Elie Billingsley MD BODY FLUIDS AND STOOLS ORDER GILBERTO Final Result Performing Organization Address City/State/[facility] Co de Phone Number [facility] [address] [place] [address] documented in this encounter Visit Diagnoses Diagnosis Pre-operative laboratory examination- Primary Pre-procedural laboratory examination documented in this encounter Care Teams Deboner Relationship Specialty Start Date End Date Francoise Tejeda MD [address] [place] [phone] [email or web address] PCP - General 01/15/1703/03 Luz Elena Valentin MD [facility] [place] [address] PCP - General Internal Medicine 03/31/20 documented as of this encounter Additional Source Comments The information contained in this document represents components of the legal health record. It is not the complete legal health record.[facility]
--- OUTSIDE RECORDS SUMMARY | 2024-11-25 12:03 | XMS_ITS | Patient Health Record ---
[facility] Address [address] [facility] [place] [address] Care Team Providers Care Plasticator Name Role Phone Homero HERNANDES, [facility] Primary Care Provider Liang Wallis Unavailable [phone] Allergies No Known Allergies Reason For Referral [...] primary osteoarthritis of the ankle and/or foot (151172398) Primary osteoarthritis , right ankle and foot (M19.071) Active confirmed Problem Localized, primary osteoarthritis of the ankle and/or foot (844946768) Primary osteoarthritis , left ankle and foot (M19.072) Active confirmed Problem Acquired hammer toe of right foot (1503937229025450) Other hammer toe(s) (acquired), right foot (M20.41) Active confirmed Problem Acquired hammer toe of left foot (3057794131896215) Other hammer toe(s) (acquired), left foot (M20.42) Active confirmed Problem Plantar nerve lesion (332912674) 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 Plan Of Treatment Pending Test Test Name Order Date X ray : Foot, left 3V 04/10/2017 X ray : Foot, left 3V 07/20/2021 X ray : Foot, right 3V 04/10/2017 X ray : Foot, right 3V 07/20/2021 04813, [id number]/INJECT, JOINT/BURSA 0 04/26/2017 95982, [id number]/INJECT, JOINT/BURSA 0 08/09/2017 68105, J0702- Neuroma/Injection 08/10/19 18 43275, J0702- Neuroma/Injection 04/26/19 18 Insurance Providers Payer Name Payer Address Payer Phone Subscriber Number Group Number Insured Name Patient Relationship to Insured Coverage Start Date Coverage End Date [employer] Benefits [address] [address] [place] [address] [id number] Laurel Berman Self - patient is the insured Medical (General) History Medical History History ICD Code Arthritis asthma Back,Hip,and Knee pain Depression Fibromyalgia Sciatica chronic sinusitis Chicken pox Cholesterol Surgical History Surgery Date(Month/Year) hysterectomy 35 years old cyst removal from wrist 18 years old
[2024-11-25 12:28] VITALS: BP 110/64; PULSE 83; TEMP 37; O2SAT 97; BMI 42.4
--- NOTE | 2024-11-25 12:28 | AM.OFFWIN_ITS ---
Intake Vital Signs 11/25/24 12:28 Height 5 ft 2 in Weight 232 lb BMI 42.4 BP 110/64 Blood Pressure Location Rt brachial Position Sitting Pulse 83 Pulse Source Pulse Oximeter Temp 98.6 F Temp Source Oral Pulse Oximetry (%) 97 Oxygen Delivery Method Room Air Intake Visit Reasons: EP-Stuffy, Cold Intake Note: pt presents with chest congestion and a cough and head pressure Patient Tobacco Use Status: Never used Tobacco Allergies anise seed Allergy (Unknown, Uncoded 08/10/24 14:58) unknown black licorice Allergy (Unknown, Uncoded 08/10/24 14:58) unknown grass pollen Allergy (Unknown, Uncoded 08/10/24 14:58) unknown Do you need a note to return to daycare/school/sports/work: No HPI HPI Comments History of Present Illness Details History - The patient is a 64-year-old female pr esenting with upper respiratory symptoms and dental infection. - Upper respiratory symptoms started on Saturday, including loss of voice, wheezing, and sinus congestion. - The patient has been using an inhaler, cough medicine, and home remedies with slight improvement. - Dental infection was identified during an emergency visit, requiring a root canal. - The patient needs an antibiotic. - Reports fatigue and weakness during ph ysical activity, with no fever reported. - She denies fever or chills. - She has no sick contacts or recent tra desmond. Physical Exam General: Cooperative, healthy appearing, comfortable and no acute distress Orientation/consciousness: Patient oriented x3 Limitations: No limitations Head: Normal to inspection Ears: Hearing grossly normal bilaterally, external ears normal and TM's normal bilaterally. No ear pain reported. Nose: Normal external nose present, normal nares present, and no nasal discharge present. Swab taken for testing. Face and sinus: Sinuses tender to palpation, congestion and sinus pain reported. Mouth: Normal oral and palatal mucosa present and moist mucous membranes noted. Throat: Tonsils normal. Uvula is midline. Posterior oropharynx with erythema and no exudates. No sore throat reported. Eyes: Appearance normal, both eyes and all related structures Neck: Normal visual inspection, full ROM. No lymphadenopathy noted. Respiratory: Clear to auscultation bilaterally. Normal respiratory effort, able to speak in complete sentences. No respiratory distress, not tachypneic, no tripod positioning and no use of accessory muscles. Cardiovascular: Regular rate and rhythm. Normal S1 and S2 Skin: No rashes or lesions noted Patient was informed and verbally consented to the use of an ambient scribe for clinic note documentation during this visit [facility]LY [facility] Medical History (Updated 09/08/24 @ 12:39 by Nixon Duckworth PA-C) Carpal tunnel syndrome History of recurrent UTI (urinary tract infection) Annual physical exam Lipid disorder Depression, major, recurrent Surgical History H/O colonoscopy History of ganglion cyst History of hysterectomy Family History Father Diabetes mellitus Mother Diabetes mellitus CVD (cardiovascular disease) Stroke Sister No problems noted. Social History Household Members: None Housing: Condominium Alcohol intake: current Alcohol intake frequency: does not drink Patient Tobacco Use Status: Never used Tobacco e-Cigarette/Vaping Use: Never Used service: No Current occupational status: employed Cognitive needs: No Hearing needs: No Vision needs: Yes Review of Systems Const All systems reviewed & are unremarkable except as noted in HPI and below Physical Exam Vital Signs: Last Vital Signs Temp 98.6 F 11/25/24 12:28 Pulse 83 11/25/24 12:28 BP 110/64 11/25/24 12:28 Pulse Ox 97 11/25/24 12:28 Oxygen Delivery Method Room Air 11/25/24 12:28 BMI result Body Mass Index 42.4 Assessment & Plan Assessment & Plan (1) Cough: Code(s): R05.9 - Cough, unspecified Qualifiers: Cough type: acute Qualified Code(s): R05.1 - Acute cough (2) Dental infection: Code(s): K04.7 - Periapical abscess without sinus Plan Most likely URI vs covid vs flu vs allergies Plan 1. Upper Respiratory Infection - Prescribed cough medicine and decongestant to manage symptoms. - Conducted nasal swab for further testing to rule out other infections. - continue with inhaler at home - zyrtec d daily - follow up with PCP 2. Dental Infection Requiring Root Canal - Prescribed antibiotics to address the dental infection. - Patient advised to follow up with dental care for root canal treatment. Orders: Orders SARS-CoV2/FLU/RSV 11/25/24 R09.89 - Other specified symptoms and signs involving the circulatory and respiratory systems Medications: New benzonatate 100 mg PO bid-tid PRN 21 caps 0RF Cough 7 days cetirizine-pseudoephedrine 5-120 mg ER 1 tab PO BID 14 tabs 0RF 7 days amoxicillin-pot clavulanate 875-125 mg 1 tab PO Q12H 14 tabs 0RF Coding Level of Care Code Est Pt Level 4 (61764) Diagnoses Acute cough R05.1 Cough type: acute Dental infection K04.7
== END 2024-11-25 13:17 | disposition home or self-care (01) ==
PROVIDERS: PCP Internal Medicine; Visit Provider Physician Assistant Medical
DX: R05.1 Acute cough (principal); K04.7 Periapical abscess without sinus

== ENCOUNTER 2024-12-18 08:22 | Outpatient (AMB) | payer OTHER, SELFPAY ==
[2024-12-18 08:28] VITALS: BP 128/72; PULSE 60; O2SAT 99; BMI 42.2
--- NOTE | 2024-12-18 08:28 | A.OFFPC_ITS ---
Vital Signs 12/18/24 08:28 Height 5 ft 2 in Weight 231 lb BMI 42.2 BP 128/72 Blood Pressure Location Rt brachial Position Sitting Pulse 60 Pulse Source Pulse Oximeter Pulse Oximetry (%) 99 Intake Visit Reasons: needs her clostiral checked Allergies anise seed Allergy (Unknown, Uncoded 12/18/24 08:28) unknown black licorice Allergy (Unknown, Uncoded 12/18/24 08:28) unknown grass pollen Allergy (Unknown, Uncoded 12/18/24 08:28) unknown Medication List - Last Reconciled 12/18/24 by Luz Elena Valentin MD albuterol sulfate 90 mcg/actuation 2 puffs inhalation Q6H PRN bupropion HCl XL 150 mg PO QAM cetirizine-pseudoephedrine 5-120 mg ER 1 tab PO BID 7 days cholecalciferol (vitamin D3) 25 mcg PO DAILY 90 days duloxetine 20 mg PO ONCE fluticasone propionate 50 mcg/actuation (Children's Flonase Allergy Relief) 1 spray intranasal DAILY multivitamin (Daily Multi-Vitamin tablet) 1 tab PO DAILY polyethylene glycol 3350 (Miralax) 17 grams PO DAILY 90 days pregabalin 150 mg PO BEDTIME 30 days MDD 150 mg simvastatin 80 mg PO DAILY 90 days [wrist braces Wear at night and more than 3 hours at a time and work up to 6 hours a night daily. ] Tobacco use date assessed: 12/18/24 Dental Screening Dental Screen Date: 12/18/24 Did you have a dental visit in the last 12 months?: Yes Did you have a dental problem in the last 6 months where you did not have access to dental care?: No Was dental information given to patient?: Patient has dentist HPI needs her clostiral checked HPI Details History The patient is a 64-year-old female presenting with chronic pain. Chronic Pain: - Persistent back and leg pain affecting quality of life, notably at night. - Under neurology care for pain, pregaba amgdy was trialed but deemed ineffective. - Physical therapy recommended for manag ement but cost-prohibitive. Sleep Apnea: - Utilizes CPAP therapy as part of manag ement. Hyperlipidemia: - Regular use of simvastatin, with a rec ent lapse. - Requires blood tests for lipid managem ent. Constipation: - Regular use of MiraLAX, though needs t o purchase independently. Fibromyalgia: - Reports symptoms aligned with fibromya lgia such as widespread pain. Medical History: - Chronic back and leg pain. - Hyperlipidemia. - Sleep apnea. - Constipation. - Fibromyalgia. Medications: - Wellbutrin: taken seasonally. - Duloxetine: prescribed for pain and mo od stabilization, restarting use. - Simvastatin: for hyperlipidemia. - MiraLAX: for constipation. - Vitamin D supplement: purchased indepe ndently. - Fluticasone (Flonase): nasal spray use d as needed. - Albuterol inhaler: used during winter as needed. Social History: - Discussed challenges with affordabilit y regarding insurance coverage for medications and therapies. - Practices seasonal medication manageme nt, such as ceasing Wellbutrin during the summer. Problem List - Chronic back and leg pain. - Sleep apnea. - Hyperlipidemia. - Constipation. - Fibromyalgia. Diagnostic results - X-ray of the back ordered but not comp leted at the time of the visit. - Due for blood tests related to cholest lg management. [place] of Care - Under neurology care for pain and slee p apnea Patient Instructions - Complete an x-ray of the back. - Get the prescribed blood tests for cho lesterol. - Continue taking simvastatin and restar t duloxetine. - Take vitamin D supplements as advised. - [facility]. - Manage constipation with MiraLAX. Review of Systems General: No fever no chills neurological: No headaches no dizziness ear nose throat: No sore throat no hearing difficulty no ear pain cardiovascular: No syncope, no chest pain, no palpitations gastrointestinal: No nausea vomiting or diarrhea skin: No new complaints Physical Exam general: No acute distress HEENT: No acute findings neck: Supple respiratory system: Able to talk in full sentences, no audible wheeze no stridor cardiovascular: S1-S2 RRR gastrointestinal: No pain extremities: No new findings BARTENDER HELPER: Alert awake oriented x3 motor sensory intact skin: Normal turgor Patient was informed and verbally consented to the use of an ambient scribe for clinic note documentation during this visit. [facility], [facility] Medical History Carpal tunnel syndrome History of recurrent UTI (urinary tract infection) Annual physical exam Lipid disorder Depression, major, recurrent Surgical History H/O colonoscopy History of ganglion cyst History of hysterectomy Family History Father Diabetes mellitus Mother Diabetes mellitus CVD (cardiovascular disease) Stroke Sister No problems noted. Social History Household Members: None Housing: Condominium Alcohol intake: current Alcohol intake frequency: does not drink Patient Tobacco Use Status: Never used Tobacco e-Cigarette/Vaping Use: Never Used service: No Current occupational status: employed Cognitive needs: No Hearing needs: No Vision needs: Yes Questionnaire PHQ-9 Over the last 2 weeks, how often have you been bothered by any of the following problems? 1. Little interest or pleasure in doing things: not at all 2. Feeling down, depressed, or hopeless: not at all 3. Trouble falling or staying asleep, or sleeping too much: nearly every day 4. Feeling tired or having little energy: several days 5. Poor appetite or overeating: several days 6. Feeling bad about yourself - or that you are a failure or have let yourself or your family down: not at all 7. Trouble concentrating on things, such as reading the newspaper or watching television: several days 8. Moving or speaking so slowly that other people could have noticed. Or the opposite - being so fidgety or restless that you have been moving around a lot more than usual: not at all 9. Thoughts that you would be better off or of hurting yourself in some way: not at all Total score: 6 Depression Screening Interpretation: Negative Depression Screening Done: Yes 54273 - PHQ-9 Billing: Yes Source: Developed by Drs. Porfirio Brown, Nancy Herring, Vick Neff and colleagues, with an educational honorio from [employer]. Thrive Questionnaire Date Thrive assessed: 07/17/24 I am a: Patient What is your living situation today?: I have a steady place to live Within the past 12 months, did the food you bought not last and you didn't have the money to get more?: Never true Within the past 12 months, did you worry whether your food would run out before you got money to buy more?: Never true Do you have trouble paying for medicines?: No Do you have trouble getting transportation to medical appointments?: No Do you have trouble paying your heating and electricity bill?: No Do you have trouble taking care of your child, family member or friend?: No Do you have trouble with day-to-day activities such as bathing, preparing meals, shopping, managing finances, etc.?: No Are you currently unemployed and looking for a job?: No Are you interested in more education?: No Please select the resources that you would like help with: None Currently or been in a relationship where the following occur: No concerns reported THRIVE Score: 0 AUDIT C Alcohol Use Questionnaire (AUDIT-C) 1. How often do you have a drink containing alcohol?: Monthly or less 2. How many drinks containing alcohol do you have on a typical day when you are drinking?: 1 or 2 3. How often do you have six or more drinks on one occasion?: Never Total Score: 1 VEE-7 AMB Questionnaire VEE-7 Date VEE - 7 assessed: 12/18/24 Feeling nervous, anxious, or on edge: 1 = Several days Not being able to stop or control worryin = Several days Worrying too much about different things: 1 = Several days Trouble relaxin = Several days Being so restless that it is hard to sit still: 1 = Several days Becoming easily annoyed or irritable: 1 = Several days Feeling afraid as if something awful might happen: 0 = Not at all Total VEE-7 score (0-4 normal; 5-9 mild; 10-14 moderate; 15-21 severe): 6 Source: Developed by Drs. Porfirio Brown, Nancy Herring, Vick Neff and colleagues, with an educational honorio from [employer]. VEE-7 Assessment Billing VEE-7 Assessment Tool: VEE-7 Assessment 23080 Physical exam (Primary Care) Vital Signs: Last Vital Signs Pulse 60 12/18/24 08:28 BP 128/72 12/18/24 08:28 Pulse Ox 99 12/18/24 08:28 BMI result Body Mass Index 42.2 Tobacco/Smoking Status: Tobacco use Status Tobacco use date assessed 12/18/24 12/18/24 08:30 Patient Tobacco Use Status Never used Tobacco 12/18/24 08:30 e-Cigarette/Vaping Use Never Used 12/18/24 08:30 PHQ-9: PHQ-9 Score PHQ-9: Total score 6 12/18/24 08:39 Depression Screening Interpretation: Negative Thrive Assessment: Date of Thrive Assessment Date Thrive assessed 07/17/24 12/18/24 08:30 Currently or been in a relationship where the following occur: No concerns reported Office Procedures Flu Questionnaire Does the patient have a severe egg allergy?: No Does the patient have severe life threatening allergies?: No Does the patient have a fever or illness today?: No Has the patient ever had Guillain-[place] Syndrome?: No Has the patient ever had any past reaction to a flu shot?: No Immunizations Fluarix 5612-7486 (PF) 45 mcg (15 mcg x 3)/0.5 mL IM syringe Performing Provider: Luz Elena Valentin MD Performing Location: [facility] Administered by: Jomar Lepe CMA on 12/18/24 08:39 Dose Route Admin Location Dispensed Lot Number Expiration Date [facility] [employer] [place] 0.5 mL IM Left Deltoid 0.5 mL [id number] 09/28/25 [id number] [email or web address] VIS Given Date VIS Provided VIS Publication Date 12/18/24 Single Vaccine 24 Eligibility Eligibility Date Funding Source Not [facility] Eligible 12/18/24 Private Coding Level of Care Code Est Pt Level 4 (05354) Diagnoses Lipid disorder E78.9 Mild episode of recurrent major depressive disorder F33.0 Active/Remission status: currently active Major depression episode severity: mild Morbid (severe) obesity due to excess calories E66.01 Constipation by delayed colonic transit K59.01 Fibromyalgia M79.7 Obstructive sleep apnea on CPAP G47.33 Additional Codes PHQ-9 - 16746 - PHQ-9 Billing: Yes ([id number]) VEE-7 Assessment Billing - VEE-7 Assessment Tool: VEE-7 Assessment 35847 ([id number]) Assessment & Plan Assessment & Plan (1) Lipid disorder: Code(s): E78.9 - Disorder of lipoprotein metabolism, unspecified Category: Medical (2) Depression, major, recurrent: Code(s): F33.9 - Major depressive disorder, recurrent, unspecified Category: Medical Qualifiers: Active/Remission status: currently active Major depression episode severity: mild Qualified Code(s): F33.0 - Major depressive disorder, recurrent, mild (3) Morbid (severe) obesity due to excess calories: Code(s): E66.01 - Morbid (severe) obesity due to excess calories Category: Medical (4) Constipation by delayed colonic transit: Code(s): K59.01 - Slow transit constipation Category: Medical (5) Fibromyalgia: Code(s): M79.7 - Fibromyalgia Category: Medical (6) Obstructive sleep apnea on CPAP: Code(s): G47.33 - Obstructive sleep apnea (adult) (pediatric) Category: Medical Plan History The patient is a 64-year-old female presenting with chronic pain. Chronic Pain: - Persistent back and leg pain affecting quality of life, notably at night. - Under neurology care for pain, pregabalin was trialed but deemed ineffective. - Physical therapy recommended for management but cost-prohibitive. Sleep Apnea: - Utilizes CPAP therapy as part of management. Hyperlipidemia: - Regular use of simvastatin, with a recent lapse. - Requires blood tests for lipid management. Constipation: - Regular use of MiraLAX, though needs to purchase independently. Fibromyalgia: - Reports symptoms aligned with fibromyalgia such as widespread pain. Medical History: - Chronic back and leg pain. - Hyperlipidemia. - Sleep apnea. - Constipation. - Fibromyalgia. Medications: - Wellbutrin: taken seasonally. - Duloxetine: prescribed for pain and mood stabilization, restarting use. - Simvastatin: for hyperlipidemia. - MiraLAX: for constipation. - Vitamin D supplement: purchased independently. - Fluticasone (Flonase): nasal spray used as needed. - Albuterol inhaler: used during winter as needed. Social History: - Discussed challenges with affordability regarding insurance coverage for medications and therapies. - Practices seasonal medication management, such as ceasing Wellbutrin during the summer. Problem List - Chronic back and leg pain. - Sleep apnea. - Hyperlipidemia. - Constipation. - Fibromyalgia. Diagnostic results - X-ray of the back ordered but not completed at the time of the visit. - Due for blood tests related to cholesterol management. [place] of Care - Under neurology care for pain and sleep apnea Patient Instructions - Complete an x-ray of the back. - Get the prescribed blood tests for cholesterol. - Continue taking simvastatin and restart duloxetine. - Take vitamin D supplements as advised. - Consider flu vaccination offered during visit. - Manage constipation with MiraLAX. Orders: Orders Complete Blood Count Auto Diff Today E66.01 - Morbid (severe) obesity due to excess calories, E78.9 - Disorder of lipoprotein metabolism, unspecified, F33.0 - Major depressive disorder, recurrent, mild, G47.33 - Obstructive sleep apnea (adult) (pediatric), K59.01 - Slow transit constipation, M79.7 - Fibromyalgia Comprehensive [place]. Panel Fast Today E66.01 - Morbid (severe) obesity due to excess calories, E78.9 - Disorder of lipoprotein metabolism, unspecified, F33.0 - Major depressive disorder, recurrent, mild, G47.33 - Obstructive sleep apnea (adult) (pediatric), K59.01 - Slow transit constipation, M79.7 - Fibromyalgia Lipid Panel Today E66.01 - Morbid (severe) obesity due to excess calories, E78.9 - Disorder of lipoprotein metabolism, unspecified, F33.0 - Major depressive disorder, recurrent, mild, G47.33 - Obstructive sleep apnea (adult) (pediatric), K59.01 - Slow transit constipation, M79.7 - Fibromyalgia Influenza 4586-9650 Immunization Today Z23 - Encounter for immunization Medications: New duloxetine 20 mg PO ONCE 90 caps 0RF Refilled bupropion HCl XL 150 mg PO QAM 90 tabs 0RF simvastatin 80 mg PO DAILY 90 tabs 0RF 90 days Discontinued cetirizine-pseudoephedrine 5-120 mg ER Discontinued Reason: Doctor's Order 1 tab PO BID 7 days 14 tabs 0RF
--- OUTSIDE RECORDS SUMMARY | 2024-12-18 08:52 | XMS_ITS | Encounter Summary ---
Author Organization [facility] Address [address] [facility] [address] [place] [address] Phone Care Team Providers Care Rn Office Name Role Phone Francoise Tejeda MD Primary Care Provider [phone] Luz Elena Valentin MD Primary Care Provider [phone] Encounter Details Date Type Department Care Team (Latest Contact Info) Description 03/30/2020 Transcribe Orders Virtual Department [address] [place] [address] Elie Billingsley MD [address] [place] [id number] [email or web address] Pre-operative laboratory examination (Primary Dx) Social History [...] Order (04/03/2020 8:01 AM EST) COVID-19 Comment [id number] [facility] COVID Testing Status Sent to [facility] Other 04/03/2020 8:01 AM EST 04/03/2020 12:31 PM EST us Elie Billingsley MD BODY FLUIDS AND STOOLS ORDER [place] Final Result Performing Organization Address City/State/[facility] Co de Phone Number [facility] [address] [place] [address] documented in this encounter Visit Diagnoses Diagnosis Pre-operative laboratory examination- Primary Pre-procedural laboratory examination documented in this encounter Care Teams Rn Office Relationship Specialty Start Date End Date Francoise Tejeda MD [address] [place] [phone] [email or web address] PCP - General 01/15/1703/03 Luz Elena Valentin MD [facility] [place] [id number] PCP - General Internal Medicine 03/31/20 documented as of this encounter Additional Source Comments The information contained in this document represents components of the legal health record. It is not the complete legal health record.[facility]
--- OUTSIDE RECORDS SUMMARY | 2024-12-18 08:52 | XMS_ITS | Clinical Summary ---
Author Organization [facility] Address [address] [address] Phone Care Team Providers Care Church Business Administrator Name Role Phone Luz Elena Valentin MD Primary Care Provider [phone] Allergies No known active allergies Medications ibuprofen [...] - Risk 60-74 years 1-dose series) 2021 INFLUENZA VACCINE (#1) 2024 01/06/2020 Adult Td,Tdap Booster 04/01/2025 04/01/2015 HEPATITIS A [...] topic Medical Devices Not on file Insurance [employer]EFITS ADMINISTRAT[employer]EF[employer]MINISTRAT[employer]EFITS ADMINISTRAT[employer]EFITS [employer]MINISTRAT[employer]ENEFITS ADMINISTRAT[employer]EFITS [employer]MINISTRAT[employer]ENEFITS [employer]MINISTRAT[employer] Care Teams Church Business Administrator Relationship Specialty Start Date End Date Luz Elena Valentin MD [address] [facility] [place] [address] PCP - General Internal Medicine 03/31/20 Additional Source Comments The information contained in this document represents components of the legal health record. It is not the complete legal health record.[facility]
--- OUTSIDE RECORDS SUMMARY | 2024-12-18 08:52 | XMS_ITS | Encounter Summary ---
Author Organization [facility] Address 399 [facility] [address] [place] [address] Phone Care Team Providers Care Vascular Ultrasound Technologist Name Role Phone Luz Elena Valentin MD Primary Care Provider [phone] Encounter Details Date Type Department Care Team (Late st Contact Info) Description 05/13/2020 Procedure Pass [facility] Endoscopy Admitting Dept Virtual Department [address] [place] [address] Social History Tobacco Use Types Packs/Day Years [...] on filedocumented in this encounter Care Teams Vascular Ultrasound Technologist Relationship Specialty Start Date End Date Luz Elena Valentin MD [address] [facility] [address] PCP - General Internal Medicine 03/31/20 documented as of this encounter Additional Source Comments The information contained in this document represents components of the legal health record. It is not the complete legal health record.[facility]
== END 2024-12-18 08:46 | disposition home or self-care (01) ==
LOC: HO.HMCC 08:22
PROVIDERS: PCP Internal Medicine; Visit Provider Internal Medicine
DX: E78.9 Disorder of lipoprotein metabolism, unspecified (principal); E66.01 Morbid (severe) obesity due to excess calories; Z68.41 Body mass index [BMI] 40.0-44.9, adult; F33.0 Major depressive disorder, recurrent, mild; K59.01 Slow transit constipation; M79.7 Fibromyalgia; G47.33 Obstructive sleep apnea (adult) (pediatric); Z23 Encounter for immunization

== ENCOUNTER 2024-12-18 08:22 | Outpatient (REF) | payer OTHER, SELFPAY ==
--- NOTE | ~2024-12-18 | XR_ITS ---
EXAMINATION: XR LUMBOSACRAL SPINE CLINICAL INFORMATION: M54.16 - Radiculopathy, lumbar region COMPARISON: 02/06/2018. TECHNIQUE: 5 views of the lumbar spine, inclusive of bilateral oblique views, were obtained. FINDINGS: There is no scoliosis. There is a normal lumbar lordosis. There is no fracture, compression deformity, or suspicious bone lesion. There is no malalignment or subluxation. Moderate disc degeneration L5-S1. There is otherwise mild disc degeneration at the more superior levels. Facets are normally aligned. There are hypertrophic degenerative facet changes spanning L3-S1. Oblique views demonstrate no evidence of pars defects. The SI joints appear normal. No soft tissue abnormalities. XR/XR lumbar spine 4V min IMPRESSION: 1. No acute findings of the lumbar spine. Mild to moderate degenerative spondylosis most significant at L5-S1. Electronically signed by: Vincent Rowe MD 12/18/2024 09:15 AM EDT
[2024-12-18 10:23] LABS: MANUAL DIFF FLAG NO
[2024-12-18 10:27] LABS: Hematocrit 38.4 % (37.0-47.0); Hemoglobin 12.2 g/dl (12.0-16.0); Imm Gran Abs Auto 0.03 X10*3/uL (0.00-0.03); Imm Gran Pct Auto 0.3 % (0.0-0.4); Lymphocytes Absolute Auto 3.6 X10*3/uL (1.2-4.9); Mean Corpuscular HGB Conc 31.8 g/dl (31.0-35.0); Mean Corpuscular Hemoglobin 27.1 pg (27.0-33.0); Mean Corpuscular Volume 85.3 fL (80.0-98.0); NRBC Abs Auto 0.000 X10*3/uL (0.0-0.012); NRBC Pct Auto 0.0 /100WBC (0.0-0.2); Platelet Count 216 X10*3/uL (160-400); Red Blood Count 4.50 X10*6/uL (4.20-5.50); White Blood Count 9.2 X10*3/uL (4.8-10.8)
[2024-12-18 11:12] LABS: Alanine Aminotransferase 14 U/L (0-31); Albumin Level 3.9 g/dL (3.5-5.0); Alkaline Phosphatase 70 U/L (39-117); Anion Gap 9 (12-20); Aspartate Amino Transferase 20 U/L (5-31); Blood Urea Nitrogen 13 mg/dL (9-16); Calcium 9.0 mg/dL (8.4-10.2); Carbon Dioxide 31 mmol/L (22-29); Chloride 107 mmol/L (96-108); Cholesterol 204 mg/dL (<200); Estimated Glomerular Filt Rate 59; HDL Cholesterol 72 mg/dL (>40); Potassium 4.4 mmol/L (3.3-5.1); Sodium 143 mmol/L (135-145); Total Protein 6.9 g/dL (6.5-8.0); Triglycerides 39 mg/dL (<150)
== END 2024-12-18 08:23 | disposition home or self-care (01) ==
LOC: HO.HMGCX 08:22
PROVIDERS: PCP Internal Medicine; Visit Provider Internal Medicine
DX: Z23 Encounter for immunization (principal); F33.0 Major depressive disorder, recurrent, mild; E78.9 Disorder of lipoprotein metabolism, unspecified; E66.01 Morbid (severe) obesity due to excess calories; K59.01 Slow transit constipation; M79.7 Fibromyalgia; G47.33 Obstructive sleep apnea (adult) (pediatric); M54.16 Radiculopathy, lumbar region; Z68.41 Body mass index [BMI] 40.0-44.9, adult
CPT/HCPCS: 36415; 72110; 80053; 80061; 85025; 90471; 90656; 96127

== ENCOUNTER → 2024-12-18 08:55 | Outpatient (BNV) | payer OTHER, SELFPAY | PROVIDERS: PCP Internal Medicine; Visit Provider Radiology Diagnostic Radiology | DX: M47.817 Spondylosis without myelopathy or radiculopathy, lumbosacral region (principal) | CPT/HCPCS: 72110 ==

== ENCOUNTER 2025-01-19 06:23 | Outpatient (REF) | payer OTHER, SELFPAY ==
--- OUTSIDE RECORDS SUMMARY | 2025-01-19 06:25 | XMS_ITS | Encounter Summary ---
Author Organization [facility] Address 399 [facility] [address] [place] [address] Phone Care Team Providers Care Bulk Tank Car Unloader Name Role Phone Luz Elena Valentin MD Primary Care Provider [phone] Encounter Details Date Type Department Care Team (Late st Contact Info) Description 05/13/2020 Procedure Pass [facility] Endoscopy Admitting Dept Virtual Department [address] [place] [address] Social History Tobacco Use Types Packs/Day Years [...] on filedocumented in this encounter Care Teams Bulk Tank Car Unloader Relationship Specialty Start Date End Date Luz Elena Valentin MD [address] [facility] [place] [address] PCP - General Internal Medicine 03/31/20 documented as of this encounter Additional Source Comments The information contained in this document represents components of the legal health record. It is not the complete legal health record.[facility]
--- OUTSIDE RECORDS SUMMARY | 2025-01-19 06:25 | XMS_ITS | Clinical Summary ---
Author Organization [facility] Address [address] [address] Phone Care Team Providers Care Protective Services Social Worker Name Role Phone Luz Elena Valentin MD Primary Care Provider [phone] Allergies No known active allergies Medications ibuprofen [...] FOBT 2006 SIGMOIDOSCOPY 2006 VIRTUAL COLONOSCOPY 2006 RSV VACCINE (1 - Risk 50-74 years 1-dose series) 2011 COVID-19 VACCINE (3 - Pfizer risk series) 05/27/2020 04/29/2020, 04/08/2020 LIPID PANEL 06/01/2020 06/02/2015 INFLUENZA VACCINE (#1) 2024 01/06/2020 Adult Td,Tdap [...] topic Medical Devices Not on file Insurance [employer] BENEFITS ADMINISTRATORS [employer]ENEF[employer]MINISTRAT[employer] BENEFITS ADMINISTRATORS [employer] BENEFITS ADMINISTRATORS [employer] BENEFITS ADMINISTRATORS [employer] BENEFITS ADMINISTRATORS [employer] BENEFITS ADMINISTRATORS [employer] Care Teams Protective Services Social Worker Relationship Specialty Start Date End Date Luz Elena Valentin MD [address] [facility] [place] [address] PCP - General Internal Medicine 03/31/20 Additional Source Comments The information contained in this document represents components of the legal health record. It is not the complete legal health record.[facility]
--- OUTSIDE RECORDS SUMMARY | 2025-01-19 06:25 | XMS_ITS | Encounter Summary ---
Author Organization [facility] Address 399 [facility] [address] [place] [address] Phone Care Team Providers Care Clinic Receptionist Name Role Phone Francoise Tejeda MD Primary Care Provider [phone] Luz Elena Valentin MD Primary Care Provider [phone] Encounter Details Date Type Department Care Team (Latest Contact Info) Description 03/30/2020 Transcribe Orders Virtual Department [address] [place] [address] Elie Billingsley MD [address] [place] [phone] [email or web address] Pre-operative laboratory examination (Primary [...] Order (04/03/2020 8:01 AM EST) COVID-19 Comment [id number] [facility] COVID Testing Status Sent to [facility] Lab [facility] Other 04/03/2020 8:01 AM EST 04/03/2020 12:31 PM EST us Elie Billingsley MD BODY FLUIDS AND STOOLS ORDER GILBERTO Final Result Performing Organization Address City/State/[facility] Co de Phone Number [facility] [address] [place] [address] documented in this encounter Visit Diagnoses Diagnosis Pre-operative laboratory examination- Primary Pre-procedural laboratory examination documented in this encounter Care Teams Clinic Receptionist Relationship Specialty Start Date End Date Francoise Tejeda MD [address] [place] [phone] [email or web address] PCP - General 01/15/1703/03 Luz Elena Valentin MD [facility] [place] [address] PCP - General Internal Medicine 03/31/20 documented as of this encounter Additional Source Comments The information contained in this document represents components of the legal health record. It is not the complete legal health record.[facility]
--- OUTSIDE RECORDS SUMMARY | 2025-01-19 06:26 | XMS_ITS | Patient Health Record ---
Author Organization [facility] Address [address] [facility] [place] [address] Care Team Providers Care Honey Grader And Blender Name Role Phone Homero HERNANDES, [facility] Primary Care Provider Liang Orozco Unavailable [phone] Allergies No Known Allergies Reason For Referral [...] primary osteoarthritis of the ankle and/or foot (979538473) Primary osteoarthritis , right ankle and foot (M19.071) Active confirmed Problem Localized, primary osteoarthritis of the ankle and/or foot (144145147) Primary osteoarthritis , left ankle and foot (M19.072) Active confirmed Problem Acquired hammer toe of right foot (6913192924032231) Other hammer toe(s) (acquired), right foot (M20.41) Active confirmed Problem Acquired hammer toe of left foot (2833668065214251) Other hammer toe(s) (acquired), left foot (M20.42) Active confirmed Problem Plantar nerve lesion (382966964) 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 Plan Of Treatment Pending Test Test Name Order Date X ray : Foot, left 3V 04/10/2017 X ray : Foot, left 3V 07/20/2021 X ray : Foot, right 3V 04/10/2017 X ray : Foot, right 3V 07/20/2021 46569, K9984-LJJXF/INJECT, JOINT/BURSA 0 04/26/2017 51997, E0024-JSHVH/INJECT, JOINT/BURSA 0 08/09/2017 54031, J0702- Neuroma/Injection 08/10/19 18 80183, J0702- Neuroma/Injection 04/26/19 18 Insurance Providers Payer Name Payer Address Payer Phone Subscriber Number Group Number Insured Name Patient Relationship to Insured Coverage Start Date Coverage End Date [employer] Benefits [address] [address] [place] [address] [id number] Laurel Berman Self - patient is the insured Medical (General) History Medical History History ICD Code Arthritis asthma Back,Hip,and Knee pain Depression Fibromyalgia Sciatica chronic sinusitis Chicken pox Cholesterol Surgical History Surgery Date(Month/Year) hysterectomy 35 years old cyst removal from wrist 18 years old
--- OUTSIDE RECORDS SUMMARY | 2025-01-19 06:26 | XMS_ITS | Data Portability ---
Author Organization [facility] Address [address] [place] [address] Assessment No assessment recorded. Plan of Treatment Reminders Order Date Submit Date Provider Last Modified By Organization Details Last Modified Time Details Appointments None recorded. Lab rapid SARS CoV 2 Ag, QL IA, respiratory specimen 2022 023 [place] [address] _[facility], [address] [place], [address], 17:35:43 Referral None recorded. Procedures None recorded. Surgeries None recorded. Imaging None recorded. Medication Orders amoxicillin 875 mg tablet [address] [facility] [address] [place] [address], [address], 17:37:49 Diflucan 150 mg tablet 2022 023 [facility] [address] [place] [address], [address], 17:35:50 Patient TargetsNo targets recorded. Patient Instructions Encounter Date Encounter Id Patient Instructions Last Modified By Organization Details Last Modified Time 04/24/2022 [id number] ear infection (otitis media): care instructions [place] [id number] Not available 04/24/2022 17:35:42 You should follow-up with your PCP in 2-3 days, or at any time if your condition does not improve or worsens. Any acute change should prompt a visit to the nearest Emergency Department. [email or web address] Not available 04/24/2022 17:39:58 Reason for Referral None Reported. Results Created Date Observation Date Name Description Value Unit Range Abnormal Flag Note LastModifiedBy Organization Detail LastModifiedTime 04/24/1904/24/2022 rapid SARS CoV 2 Ag, QL IA, respi rator y speci men Unknown Analyte Normal =Negat robin Not Available [facility] [address] [place], [address], 04/24/2022 16:55:05 04/24/19 23 04/24/2022 rapid SARS CoV 2 Ag, QL IA, respi rator y speci men Unknown Analyte negati ve Not Available [address] [address] [place], [address], 04/24/2022 16:55:05 Result Notes None recorded. Problems Name Problem SNOMED Code Status Onset Date Resolution Date Notes Provider Name and Address Organization Details Recorded Time Hyperlipidemia 58748560 Active 2022 TYESHA becerra, [place] - [facility] 3 16:53:52 Seasonal affective disorder 431611264 Active 2022 TYESHA [facility]erra, [facility] - [facility] [...] Pulse oximetry Heart rate Body temperature Systolic And Diastolic Provider Name and Address Organization Details Last Updated DateTime 3 157.48 cm 42.1 kg/m2 932121. 25 g 8 18 /min 97 % 97 % 66 /min 98.4 [degF] 120/78 mm[Hg] TYESHA TORRES [facility] 16:56:28 Social History Question Answer Notes LastModified by [employer] Details LastModified Time Tobacco Smoking Status Never Smoker TYESHA becerra PA [facility] 04/24/2022 16:54:39 Have You Recently Traveled Abroad? No Information not available 04/24/2022 Sex: Unknown Functional Status Question Answer Note LastModified by [employer] Details LastModified Time Do you use any illicit or recreational drugs? No Information not available 04/24/2022 Do you or have you ever used any other forms of tobacco or nicotine? No [email or web address] Information not available 04/24/2022 What is your level of alcohol consumption? Occasional [email or web address] Information not available 04/24/2022 Mental Status None recorded. Family History Relationship Description Onset Age of this Age Resolved Age Notes LastModified by Organization Details LastModified Time Father No current problems or disability [email or web address] Not available 04/24 16:54:23 Mother No current problems or disability Not available 04/24 16:54:23 Medical History No medical history recorded. Gynecological HistoryNo gynecological history recorded. Obstetrics History GPAL:G 0 P 0 0 0 0 Past Encounters Encounter ID Performer Location Encounter Start Date Encounter Closed Date Diagnosis/Indication Diagnosis SNOMED-CT Code Diagnosis ICD10 Code Diagnosis IMO Codes Diagnosis Note [id number] [facility] [address] [facility] [place] [address] 04/11/2016 11:38:25 04/11/2016 12:43:59 [id number] [address] [place] [address] 07/27/2021 08:36:44 07/27/2021 10:27:31 [id number] [address] [place] [address] 05/06/2021 11:40:41 05/06/2021 12:28:37 [id number] [address] [facility] [address] [place] [address] 05/26/2020 08:03:08 05/26/2020 08:53:25 [id number] Sterling Holliday MD [address] [address] [place] [address] 04/24/2022 15:56:23 04/24/2022 17:36:34 Acute left otitis media 604474014 H66.92 Health Concerns Section Related Observation LastModified by Organization Detai ls LastModified Time None Recorded Concern Status LastModified by Organization Details LastModified Time None Recorded Advance Directives Directive None Recorded Payers Insurance Date Sequence Insurance Name Policy Number Policy Choi Covered Member ID Choi Member ID Guarantor Name 04/25/2022 1 [employer] [place]) [id number] Laurel Berman [id number] Laurel Berman Notes Date Note Type Note Provider Name and Address Organization Details Recorded Time 3 text/html Ear Pain Brief HPIReported by PatientHPIFor quality, patient reportsthrobbing painbut reportsno itching,no discharge from the ears, andno burning. For associated symptoms, patient reportsnasal congestionandsense of fullness/pressurebut reportsno coughandno discharge from ear. For location, patient reportsbilateral. For onset/timing, patient reportsstarted 2days ago. For duration, patient reportsoccurs __. For severity, patient reportsno fever. For context, patient reportsno recent uriandno recent swimming. pain from left ear radiating down into neck Sterling Holliday MD [address] [facility] [place], [address], [place] - [facility] 04/24/2022 17:40:09 OBGyn Episode No OBEpisode recorded.
== END 2025-01-19 06:24 | disposition home or self-care (01) ==
LOC: CF 06:23
PROVIDERS: Visit Provider Anesthesiology
DX: Z13.89 Encounter for screening for other disorder (principal)

== ENCOUNTER 2025-01-26 06:17 | Outpatient (REF) | payer OTHER, SELFPAY ==
--- NOTE | ~2025-01-26 | FL_ITS ---
EXAMINATION: FL GUIDANCE ONLY HISTORY: M47.816 - Spondylosis without myelopathy or radiculopathy, lumbar region COMPARISON: None available. TECHNIQUE: Fluoroscopy time: 1 minute, 4 seconds. Cumulative Dose: 21.30 mGy. DAP: 557.93 uGym2 Images: 12. FINDINGS: Fluoroscopic spot films of the lumbar spine in the AP projection demonstrate needles and contrast material in the regions of the bilateral L3-4, L4-5, and L5-S1 facet joints. FL/FL guidance in treatment room IMPRESSION: Fluoroscopy during procedure. Please see procedure report for additional information. Electronically signed by: Porfirio Alberto MD 01/26/2025 12:21 PM EDT
--- OUTSIDE RECORDS SUMMARY | 2025-01-26 06:19 | XMS_ITS | Encounter Summary ---
Author Organization [facility] Address [address] [facility] [address] [place] [address] Phone Care Team Providers Care Band Saw Operator Cake Cutting Name Role Phone Francoise Tejeda MD Primary Care Provider [phone] Luz Elena Valentin MD Primary Care Provider [phone] Encounter Details Date Type Department Care Team (Latest Contact Info) Description 03/30/2020 Transcribe Orders Virtual Department [address] [place] [address] Elie Billingsley MD [address] [place] [phone] [email or web address] Pre-operative laboratory examination (Primary Dx) Social History [...] Order (04/03/2020 8:01 AM EST) COVID-19 Comment [id number] [facility] COVID Testing Status Sent to [facility] Lab [facility] Other 04/03/2020 8:01 AM EST 04/03/2020 12:31 PM EST us Elie Billingsley MD BODY FLUIDS AND STOOLS ORDER GILBERTO Final Result Performing Organization Address City/State/[facility] Co de Phone Number [facility] [address] [place] [address] documented in this encounter Visit Diagnoses Diagnosis Pre-operative laboratory examination- Primary Pre-procedural laboratory examination documented in this encounter Care Teams Band Saw Operator Cake Cutting Relationship Specialty Start Date End Date Francoise Tejeda MD [address] [place] [address] [email or web address] PCP - General 01/15/1703/03 Luz Elena Valentin MD [facility] [place] [address] PCP - General Internal Medicine 03/31/20 documented as of this encounter Additional Source Comments The information contained in this document represents components of the legal health record. It is not the complete legal health record.[facility]
--- OUTSIDE RECORDS SUMMARY | 2025-01-26 06:19 | XMS_ITS | Clinical Summary ---
Author Organization [facility] Address [address] [address] Phone Care Team Providers Care Defect Cutter Name Role Phone Luz Elena Valentin MD Primary Care Provider [phone] Allergies No known active allergies Medications ibuprofen [...] topic Medical Devices Not on file Insurance [employer]ISTR[employer]ENEF[employer]MINISTR[employer]EN[employer]ISTR[employer]ENEF[employer]ISTR[employer] BENEF[employer] ADMINISTRAT[employer] BENEF[employer] ADMINISTRAT[employer]ENEF[employer]MINISTR[employer] Care Teams Defect Cutter Relationship Specialty Start Date End Date Luz Elena Valentin MD [address] [facility] [place] [address] PCP - General Internal Medicine 03/31/20 Additional Source Comments The information contained in this document represents components of the legal health record. It is not the complete legal health record.[facility]
--- OUTSIDE RECORDS SUMMARY | 2025-01-26 06:19 | XMS_ITS | Encounter Summary ---
Author Organization [facility] Address [address] [facility] [address] [place] [address] Phone Care Team Providers Care Ward Aide Name Role Phone Luz Elena Valentin MD Primary Care Provider [phone] Encounter Details Date Type Department Care Team (Late st Contact Info) Description 05/13/2020 Procedure Pass [facility] Endoscopy Admitting Dept Virtual Department [address] [place] [address] Social History Tobacco Use Types Packs/Day Years [...] on filedocumented in this encounter Care Teams Ward Aide Relationship Specialty Start Date End Date Luz Elena Valentin MD [address] [facility] [place] [address] PCP - General Internal Medicine 03/31/20 documented as of this encounter Additional Source Comments The information contained in this document represents components of the legal health record. It is not the complete legal health record.[facility]
--- OUTSIDE RECORDS SUMMARY | 2025-01-26 06:19 | XMS_ITS | Data Portability ---
Author Organization [facility], [address] Address [address] [place] [address] Assessment No assessment recorded. Plan of Treatment Reminders Order Date Submit Date Provider Last Modified By Organization Details Last Modified Time Details Appointments None recorded. Lab rapid SARS CoV 2 Ag, QL IA, respiratory specimen 2022 023 [place] [address] _[facility], [address] [place], [address], 17:35:43 Referral None recorded. Procedures None recorded. Surgeries None recorded. Imaging None recorded. Medication Orders amoxicillin 875 mg tablet [address] [facility] [address] [place] [address], [address], 17:37:49 Diflucan 150 mg tablet 2022 023 [facility] [address] [place] [address], [address], 17:35:50 Patient TargetsNo targets recorded. Patient Instructions Encounter Date Encounter Id Patient Instructions Last Modified By Organization Details Last Modified Time 04/24/2022 [id number] ear infection (otitis media): care instructions [place] [id number] Not available 04/24/2022 17:35:42 You should follow-up [...] =Negat robin Not Available [facility] [address] [place], [address], 04/24/2022 16:55:05 04/24/19 23 04/24/2022 rapid SARS CoV 2 Ag, QL IA, respi rator y speci men Unknown Analyte negati ve Not Available [address] [address] [place], [address], 04/24/2022 16:55:05 Result Notes None recorded. Problems Name Problem SNOMED Code Status Onset Date Resolution Date Notes Provider Name and Address Organization Details Recorded Time Hyperlipidemia 48546763 Active 2022 TYESHA becerra, [place] - [facility] 3 16:53:52 Seasonal affective disorder 807573168 Active 2022 [facility], [facility] - [facility] [...] Updated DateTime 3 157.48 cm 42.1 kg/m2 023987. 25 g 8 18 /min 97 % 97 % 66 /min 98.4 [degF] 120/78 mm[Hg] TYESHA TORRES [facility] 16:56:28 Social History Question Answer Notes LastModified by [employer] Details LastModified Time Tobacco Smoking Status Never Smoker TYESHA becerra PA [facility] 04/24/2022 16:54:39 Have You Recently Traveled Abroad? No [email or web address] Information not available 04/24/2022 Sex: Unknown Functional Status Question Answer Note LastModified by [employer] Details LastModified Time Do you use any illicit or recreational drugs? No Information not available 04/24/2022 Do you or have you ever used any other forms of tobacco or nicotine? No Information not available 04/24/2022 What is your level of alcohol consumption? Occasional [email or web address] Information not available 04/24/2022 Mental Status None recorded. Family History Relationship Description Onset Age of this Age Resolved Age Notes LastModified by Organization Details LastModified Time Father No current problems or disability [email or web address] Not available 04/24 16:54:23 Mother No current problems or disability [email or web address] Not available 04/24 16:54:23 Medical History No medical history recorded. Gynecological HistoryNo gynecological history recorded. Obstetrics History GPAL:G 0 P 0 0 0 0 Past Encounters Encounter ID Performer Location Encounter Start Date Encounter Closed Date Diagnosis/Indication Diagnosis SNOMED-CT Code Diagnosis ICD10 Code Diagnosis IMO Codes Diagnosis Note [id number] [facility] [place] [address] 04/11/2016 11:38:25 04/11/2016 12:43:59 [id number] [address] [place] [address] 07/27/2021 08:36:44 07/27/2021 10:27:31 [id number] [address] [place] [address] 05/06/2021 11:40:41 05/06/2021 12:28:37 [id number] [address] [address] [facility] [address] [place] [address] 05/26/2020 08:03:08 05/26/2020 08:53:25 [id number] Sterling Holliday MD [facility] [place] [address] 04/24/2022 15:56:23 04/24/2022 17:36:34 Acute left otitis media 242599828 H66.92 Health Concerns Section Related Observation LastModified by Organization Detai ls LastModified Time None Recorded Concern Status LastModified by Organization Details LastModified Time None Recorded Advance Directives Directive None Recorded Payers Insurance Date Sequence Insurance Name Policy Number Policy Choi Covered Member ID Choi Member ID Guarantor Name 04/25/2022 1 [employer] [place] ([facility]) [id number] Laurel Berman [id number] Laurel Berman Notes Date Note Type [...] down into neck Sterling Holliday MD [address] [facility] [address] [place], [address], [place] - [facility] 04/24/2022 17:40:09 OBGyn Episode No OBEpisode recorded.
--- OUTSIDE RECORDS SUMMARY | 2025-01-26 06:19 | XMS_ITS | Patient Health Record ---
Author Organization [facility] Address [address] [facility] [place] [address] Care Team Providers Care Garment Supervisor Name Role Phone Homero HERNANDES, [facility] Primary Care Provider Liang Orozco Unavailable [phone] Allergies No Known Allergies Reason For Referral [...] primary osteoarthritis of the ankle and/or foot (877567024) Primary osteoarthritis , right ankle and foot (M19.071) Active confirmed Problem Localized, primary osteoarthritis of the ankle and/or foot (911426978) Primary osteoarthritis , left ankle and foot (M19.072) Active confirmed Problem Acquired hammer toe of right foot (4451106533531507) Other hammer toe(s) (acquired), right foot (M20.41) Active confirmed Problem Acquired hammer toe of left foot (6741711255730422) Other hammer toe(s) (acquired), left foot (M20.42) Active confirmed Problem Plantar nerve lesion (667936290) 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 Plan Of Treatment Pending Test Test Name Order Date X ray : Foot, left 3V 04/10/2017 X ray : Foot, left 3V 07/20/2021 X ray : Foot, right 3V 04/10/2017 X ray : Foot, right 3V 07/20/2021 [id number], [id number]/INJECT, JOINT/BURSA 0 04/26/2017 45355, M7500-RMZWK/INJECT, JOINT/BURSA 0 08/09/2017 68350, J0702- Neuroma/Injection 08/10/19 18 69851, J0702- Neuroma/Injection 04/26/19 18 Insurance Providers Payer Name Payer Address Payer Phone Subscriber Number Group Number Insured Name Patient Relationship to Insured Coverage Start Date Coverage End Date Blue Benefits [address] [address] [place] [address] [id number] Laurel Berman Self - patient is the insured Medical (General) History Medical History History ICD Code Arthritis asthma Back,Hip,and Knee pain Depression Fibromyalgia Sciatica chronic sinusitis Chicken pox Cholesterol Surgical History Surgery Date(Month/Year) hysterectomy 35 years old cyst removal from wrist 18 years old
== END 2025-01-26 06:18 | disposition home or self-care (01) ==
LOC: CF 06:17
PROVIDERS: Visit Provider Anesthesiology
DX: M47.816 Spondylosis without myelopathy or radiculopathy, lumbar region (principal)
CPT/HCPCS: 64493; 64494; J2003; J2795; Q9967

== ENCOUNTER 2025-01-26 10:05 | Outpatient (AMB) | payer OTHER, SELFPAY ==
[2025-01-26 10:07] VITALS: BP 133/60; PULSE 78; RESP 16; O2SAT 98; BMI 42.2
--- NOTE | 2025-01-26 10:07 | MHC.OFFVIS ---
Vital Signs 01/26/25 10:07 01/26/25 10:49 Height 5 ft 2 in Weight 231 lb BMI 42.2 BP 133/60 119/61 Blood Pressure Location Lt brachial Lt brachial Position Sitting Sitting Respiration 16 16 Pulse 78 68 Pulse Source Pulse Oximeter Pulse Oximeter Pulse Oximetry (%) 98 99 Oxygen Delivery Method Room Air Room Air Intake Visit Reasons: BILATERAL DIAGNOSTIC L3-L4 DR L5 MBB/ Ativan Allergies anise seed Allergy (Unknown, Uncoded 12/18/24 08:28) unknown black licorice Allergy (Unknown, Uncoded 12/18/24 08:28) unknown grass pollen Allergy (Unknown, Uncoded 12/18/24 08:28) unknown PFSH Medical History Carpal tunnel syndrome History of recurrent UTI (urinary tract infection) Annual physical exam Lipid disorder Depression, major, recurrent Surgical History H/O colonoscopy History of ganglion cyst History of hysterectomy Family History Father Diabetes mellitus Mother Diabetes mellitus CVD (cardiovascular disease) Stroke Sister No problems noted. Social History Household Members: None Housing: Condominium Alcohol intake: current Alcohol intake frequency: does not drink Patient Tobacco Use Status: Never used Tobacco e-Cigarette/Vaping Use: Never Used service: No Current occupational status: employed Cognitive needs: No Hearing needs: No Vision needs: Yes Physical Exam Vital Signs: Last Vital Signs Pulse 68 01/26/25 10:49 Resp 16 01/26/25 10:49 BP 119/61 01/26/25 10:49 Pulse Ox 99 01/26/25 10:49 Oxygen Delivery Method Room Air 01/26/25 10:49 BMI result Body Mass Index 42.2 Assessment & Plan Assessment & Plan (1) Lumbar spondylosis: Code(s): M47.816 - Spondylosis without myelopathy or radiculopathy, lumbar region Category: Medical Plan Diagnostic medial branch block L3,L4 dorsal ramus L5 bilateral.? ? ?Informed consent was explained to the patient. All questions were explained and? answered.? The patient was taken inside the operating room where he was positioned prone on the operating table. Time-out was performed delineating correct site, side, the nature of the procedure, patient's allergy, . All operating room staff was participating in OR time-out procedure. ? ? The lower back was prepped with ChloraPrep and draped with sterile utility towels.? C-arm was brought over the operating field and sq picture of L4-, L5 vertebra and S1 AREA were delineated on the screen.? Point of interest were delineated as confluence of superior articular process of L4 and L5 vertebra bilaterally with corresponding transverse processes as well as confluence of the sacral alae bilaterally with superior articular process of S1.? The projection of the point of interest to the skin were injected with the small amount of local anesthetic lidocaine 2% mixed with ropivacaine 0.5% 1-1 approximately 1 cc.? After that 22 gauge 3.5 inch spinal needle was driven sequentially to the points of interest in tunnel vision fashion. After needles gently contacted the bone at the point of interests the needle was injected with small amount of the contrast.? The injection of the contrast did not demonstrate any intravascular or intrathecal spread of the contrast.? After that injection of the? ropivacaine 0.5%-1cc was performed at each needle location.?After that the needles were removed and Bandaids were applied. Coding Level of Care Code Procedure Only Diagnoses Lumbar spondylosis M47.816
[2025-01-26 10:49] VITALS: BP 119/61; PULSE 68; RESP 16; O2SAT 99
== END 2025-01-26 11:13 | disposition home or self-care (01) ==
LOC: HO.PMCPRC 10:05
PROVIDERS: PCP Internal Medicine; Visit Provider Anesthesiology
DX: M47.816 Spondylosis without myelopathy or radiculopathy, lumbar region (principal)
CPT/HCPCS: 64493; 64494

== ENCOUNTER 2025-01-29 16:22 | Outpatient (AMB) | payer OTHER, SELFPAY ==
--- NOTE | 2025-01-29 16:24 | A.OFFVIS_ITS ---
Vital Signs 01/29/25 16:27 Height 5 ft 2 in Weight 231 lb BMI 42.2 BP 178/79 H Blood Pressure Location Rt brachial Position Sitting Pulse 63 Pulse Source Pulse Oximeter Pulse Oximetry (%) 99 Oxygen Delivery Method Room Air Intake Visit Reasons: S/P BILATERAL DIAGNOSTIC L3-L4 DR L5 MBB Intake Note: Pain today 11/08 Electronic Industrial Controls Mechanic Required: No Accompanied by: Self / Same As Patient Allergies anise seed Allergy (Unknown, Uncoded 12/18/24 08:28) unknown black licorice Allergy (Unknown, Uncoded 12/18/24 08:28) unknown grass pollen Allergy (Unknown, Uncoded 12/18/24 08:28) unknown HPI Comments Details: The patient is a 64-year-old female presenting to the office for follow up 3 days s/p bilateral diagnostic L3 L4 DR L5 MBBs. The patient reports experiencing widespread pain throughout her body following the procedure, which persisted for two days. She noted that her upper body and neck were particularly affected, and she felt miserable despite taking it easy and resting. Believes this is associated to being anxious about the injections and remaining rigid and stiff throughout the procedure stressing the muscles of her upper back. The patient describes nerve pain characterized by sensations of lightning bolts and burning on her left side, which she attributes to a small lump possibly pressing on a nerve. She reports that the pain has been increasing in intensity and spreading upwards, causing significant discomfort, especially when lying on that side. The patient has been experiencing lumbar pain, which remains sore despite attempts to exercise and walk. She recalls significant pain during prolonged st anding at a recent event, indicating that the pain is exacerbated by such activities. - Onset: Pain began after a recent procedure and persisted for two days. - Quality: Described as widespread body pain, with upper body and neck particularly affected. - Nerve Pain: Characterized by lightning bolts and burning sensations on the left side, possibly due to a lump pressing on a nerve. - Lumbar Pain: Persistent soreness, exacerbated by prolonged standing and walking. - Affect: Pain impacts mood, causing significant discomfort and affecting sleep. - Analgesia: Previously prescribed medication provided some relief; Lyrica was used for nerve pain. - Adverse Effects: Potential side effects of medication include sleepiness. - Activities of Daily Living: Pain interferes with standing and walking, affecting daily activities. - Aberrant Drug Related Behaviors: No aberrant behaviors reported. PFSH Medical History Carpal tunnel syndrome History of recurrent UTI (urinary tract infection) Annual physical exam Lipid disorder Depression, major, recurrent Surgical History H/O colonoscopy History of ganglion cyst History of hysterectomy Family History Father Diabetes mellitus Mother Diabetes mellitus CVD (cardiovascular disease) Stroke Sister No problems noted. Social History Household Members: None Housing: Condominium Alcohol intake: current Alcohol intake frequency: does not drink Patient Tobacco Use Status: Never used Tobacco e-Cigarette/Vaping Use: Never Used service: No Current occupational status: employed Cognitive needs: No Hearing needs: No Vision needs: Yes Review of Systems Narrative - Musculoskeletal: Reports widespread body pain, particularly in the upper body and neck. - Neurological: Reports nerve pain with sensations of lightning bolts and burning on the left side. - General: Reports significant discomfort and impact on sleep due to pain. Physical Exam Exam Exam: General: awake, alert, oriented. Answers questions appropriately. Fully engaged in examination. Skin: warm, dry, intact HEENT: Normocephalic. Hearing intact. Cardiac: External chest normal in appearance. Respiratory: No cough, audible wheezing or stridor. Abdomen: without gross distension. MS: No obvious swelling or deformities. Able to transition from sit to stand unassisted. Ambulates with bilaterally normal heel strike and toe off Neurological: Oriented to person, place, time and situation. Thought process intact. No gait abnormalities appreciated. Psychiatric: Appropriate mood and affect. Good judgment and insight. Vital Signs: Last Vital Signs Pulse 63 01/29/25 16:27 BP 178/79 H 01/29/25 16:27 Pulse Ox 99 01/29/25 16:27 Oxygen Delivery Method Room Air 01/29/25 16:27 BMI result Body Mass Index 42.2 Results Reviewed Results Reviewed: 12/18/2024 XR/XR lumbar spine 4V min FINDINGS: There is no scoliosis. There is a normal lumbar lordosis. There is no fracture, compression deformity, or suspicious bone lesion. There is no malalignment or subluxation. Moderate disc degeneration L5-S1. There is otherwise mild disc degeneration at the more superior levels. Facets are normally aligned. There are hypertrophic degenerative facet changes spanning L3-S1. Oblique views demonstrate no evidence of pars defects. The SI joints appear normal. No soft tissue abnormalities. IMPRESSION: 1. No acute findings of the lumbar spine. Mild to moderate degenerative spondylosis most significant at L5-S1. Assessment & Plan Assessment & Plan (1) Leg paresthesia: Code(s): R20.2 - Paresthesia of skin Category: Medical (2) Left lumbar radiculopathy: Code(s): M54.16 - Radiculopathy, lumbar region Category: Medical (3) Lumbar spondylosis: Code(s): M47.816 - Spondylosis without myelopathy or radiculopathy, lumbar region Category: Medical Plan The plan includes increasing the dose of Lyrica to address the nerve pain, with instructions to monitor for any adverse effects such as increased sleepiness. An MRI of the lumbar spine will be ordered to further investigate the persistent lumbar pain, with the patient opting for a closed MRI for better imaging quality. The patient is advised to follow up with her primary care physician for potential referral to neurology if the nerve pain persists or worsens. Patient was informed and verbally consented to the use of an ambient scribe for clinic note documentation during this visit. Orders: Orders MR lumbar spine wo con 01/29/25 M47.816 - Spondylosis without myelopathy or radiculopathy, lumbar region, M54.16 - Radiculopathy, lumbar region, R20.2 - Paresthesia of skin Medications: New pregabalin 50 mg PO BID 60 caps 3RF pregabalin 100 mg PO BID 60 caps 3RF Discontinued pregabalin May take one 150mg PO daily at night for nerve pain. Discontinued Reason: Doctor's Order 150 mg PO BEDTIME 30 days 30 caps 3RF numbness and tingling of legs MDD 150 mg M54.16 - Radiculopathy, lumbar region, R20.2 - Paresthesia of skin Patient Instructions: - Take the increased dose of Lyrica as prescribed and monitor for any side effects. - Schedule and complete the MRI of the lumbar spine as discussed. - Follow up with your primary care physician for further evaluation and potential neurology referral if nerve pain persists. Coding Level of Care Code Est Pt Level 3 (82432) Complex EM visit Add On G2211 Diagnoses Leg paresthesia R20.2 Left lumbar radiculopathy M54.16 Lumbar spondylosis M47.816
--- OUTSIDE RECORDS SUMMARY | 2025-01-29 16:25 | XMS_ITS | Encounter Summary ---
Author Organization [facility] Address [address] [place] [address] Phone Care Team Providers Care Paver Name Role Phone Francoise Tejeda MD Primary Care Provider [phone] Luz Elena Valentin MD Primary Care Provider [phone] Encounter Details Date Type Department Care Team (Latest Contact Info) Description 03/30/2020 Transcribe Orders Virtual Department [address] [place] [address] Elie Billingsley MD [address] [place] [id number] [email or web address] Pre-operative laboratory examination (Primary Dx) Social History [...] Order (04/03/2020 8:01 AM EST) COVID-19 Comment [id number] [facility] COVID Testing Status Sent to [facility] Other 04/03/2020 8:01 AM EST 04/03/2020 12:31 PM EST us Elie Billingsley MD BODY FLUIDS AND STOOLS ORDER GILBERTO Final Result Performing Organization Address City/State/[facility] Co de Phone Number [facility] [address] [place] [address] documented in this encounter Visit Diagnoses Diagnosis Pre-operative laboratory examination- Primary Pre-procedural laboratory examination documented in this encounter Care Teams Paver Relationship Specialty Start Date End Date Francoise Tejeda MD [email or web address] PCP - General 01/15/1703/03 Luz Elena Valentin MD [facility] [place] [address] PCP - General Internal Medicine 03/31/20 documented as of this encounter Additional Source Comments The information contained in this document represents components of the legal health record. It is not the complete legal health record.[facility]
--- OUTSIDE RECORDS SUMMARY | 2025-01-29 16:25 | XMS_ITS | Patient Health Record ---
Author Organization [facility] Address [address] [facility] [place] [address] Care Team Providers Care Band Attacher Name Role Phone Homero HER[facility]NDES, [facility] Primary Care Provider Liang Orozco Unavailable [phone] Allergies No Known Allergies Reason For Referral [...] primary osteoarthritis of the ankle and/or foot (720912362) Primary osteoarthritis , right ankle and foot (M19.071) Active confirmed Problem Localized, primary osteoarthritis of the ankle and/or foot (211129676) Primary osteoarthritis , left ankle and foot (M19.072) Active confirmed Problem Acquired hammer toe of right foot (9056031758036142) Other hammer toe(s) (acquired), right foot (M20.41) Active confirmed Problem Acquired hammer toe of left foot (8295476287860311) Other hammer toe(s) (acquired), left foot (M20.42) Active confirmed Problem Plantar nerve lesion (891415923) 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 Plan Of Treatment Pending Test Test Name Order Date X ray : Foot, left 3V 04/10/2017 X ray : Foot, left 3V 07/20/2021 X ray : Foot, right 3V 04/10/2017 X ray : Foot, right 3V 07/20/2021 [id number], R9085-ARCFI/INJECT, JOINT/BURSA 0 04/26/2017 96233, T0065-GOXQG/INJECT, JOINT/BURSA 0 08/09/2017 00363, J0702- Neuroma/Injection 08/10/19 18 39335, J0702- Neuroma/Injection 04/26/19 18 Insurance Providers Payer Name Payer Address Payer Phone Subscriber Number Group Number Insured Name Patient Relationship to Insured Coverage Start Date Coverage End Date Blue Benefits [address] [address] [place] [address] [id number] Laurel Berman Self - patient is the insured Medical (General) History Medical History History ICD Code Arthritis asthma Back,Hip,and Knee pain Depression Fibromyalgia Sciatica chronic sinusitis Chicken pox Cholesterol Surgical History Surgery Date(Month/Year) hysterectomy 35 years old cyst removal from wrist 18 years old
--- OUTSIDE RECORDS SUMMARY | 2025-01-29 16:25 | XMS_ITS | Encounter Summary ---
Author Organization [facility] Address [address] [facility] [address] [place] [address] Phone Care Team Providers Care Marble Ceiling Installer Name Role Phone Luz Elena Valentin MD Primary Care Provider [phone] Encounter Details Date Type Department Care Team (Late st Contact Info) Description 05/13/2020 Procedure Pass [facility] Endoscopy Admitting Dept Virtual Department [address] [place] [address] Social History Tobacco Use Types Packs/Day Years [...] on filedocumented in this encounter Care Teams Marble Ceiling Installer Relationship Specialty Start Date End Date Luz Elena Valentin MD [address] [place] [address] PCP - General Internal Medicine 03/31/20 documented as of this encounter Additional Source Comments The information contained in this document represents components of the legal health record. It is not the complete legal health record.[facility]
--- OUTSIDE RECORDS SUMMARY | 2025-01-29 16:25 | XMS_ITS | Clinical Summary ---
Author Organization [facility] Address [address] [address] Phone Care Team Providers Care Photoresist Contact Printer Name Role Phone Luz Elena Valentin MD Primary Care Provider [phone] Allergies No known active allergies Medications ibuprofen [...] topic Medical Devices Not on file Insurance [employer]MIN[employer]MIN[employer]EFITS [employer]MIN[employer]EF[employer]MINISTRATORS [employer] Care Teams Photoresist Contact Printer Relationship Specialty Start Date End Date Luz Elena Valentin MD [address] [place] [address] PCP - General Internal Medicine 03/31/20 Additional Source Comments The information contained in this document represents components of the legal health record. It is not the complete legal health record.[facility]
--- OUTSIDE RECORDS SUMMARY | 2025-01-29 16:26 | XMS_ITS | Data Portability ---
Author Organization [facility], [address] Address [address] [place] [address] Assessment No assessment recorded. Plan of Treatment Reminders Order Date Submit Date Provider Last Modified By Organization Details Last Modified Time Details Appointments None recorded. Lab rapid SARS CoV 2 Ag, QL IA, respiratory specimen 2022 023 [place] [address] _[facility], [address] [place], [address], 17:35:43 Referral None recorded. Procedures None recorded. Surgeries None recorded. Imaging None recorded. Medication Orders amoxicillin 875 mg tablet [address] [facility] [address] [place] [address], [address], 17:37:49 Diflucan 150 mg tablet 2022 023 [facility] [address] [place] [address], [address], 17:35:50 Patient TargetsNo targets recorded. Patient Instructions Encounter Date Encounter Id Patient Instructions Last Modified By Organization Details Last Modified Time 04/24/2022 [id number] ear infection (otitis media): care instructions [place] [address] Not available 04/24/2022 17:35:42 You should follow-up [...] =Negat robin Not Available [facility] [address] [place], [address], 04/24/2022 16:55:05 04/24/19 23 04/24/2022 rapid SARS CoV 2 Ag, QL IA, respi rator y speci men Unknown Analyte negati ve Not Available [address] [address] [place], [address], 04/24/2022 16:55:05 Result Notes None recorded. Problems Name Problem SNOMED Code Status Onset Date Resolution Date Notes Provider Name and Address Organization Details Recorded Time Hyperlipidemia 02369142 Active 2022 TYESHA becerra, [place] - [facility] 3 16:53:52 Seasonal affective disorder 283039200 Active 2022 [facility] - [facility] [...] Updated DateTime 3 157.48 cm 42.1 kg/m2 329056. 25 g 8 18 /min 97 % 97 % 66 /min 98.4 [degF] 120/78 mm[Hg] TYESHA TORRES [employer] 16:56:28 Social History Question Answer Notes LastModified by [place] Details LastModified Time Tobacco Smoking Status Never Smoker TYESHA becerra PA [facility] 04/24/2022 16:54:39 Have You Recently Traveled Abroad? No [email or web address] Information not available 04/24/2022 Sex: Unknown Functional Status Question Answer Note LastModified by [place] Details LastModified Time Do you use any illicit or recreational drugs? No [email or web address] Information not available 04/24/2022 Do you or have you ever used any other forms of tobacco or nicotine? No Information not available 04/24/2022 What is your level of alcohol consumption? Occasional [email or web address] Information not available 04/24/2022 Mental Status None recorded. Family History Relationship Description Onset Age of this Age Resolved Age Notes LastModified by Organization Details LastModified Time Father No current problems or disability [email or web address] Not available 04/24 16:54:23 Mother No current problems or disability [email or web address] Not available 04/24 16:54:23 Medical History No medical history recorded. Gynecological HistoryNo gynecological history recorded. Obstetrics History GPAL:G 0 P 0 0 0 0 Past Encounters Encounter ID Performer Location Encounter Start Date Encounter Closed Date Diagnosis/Indication Diagnosis SNOMED-CT Code Diagnosis ICD10 Code Diagnosis IMO Codes Diagnosis Note [id number] [facility] [facility] [address] [place] [address] 04/11/2016 11:38:25 04/11/2016 12:43:59 [id number] [address] [place] [address] 07/27/2021 08:36:44 07/27/2021 10:27:31 [id number] [address] [place] [address] 05/06/2021 11:40:41 05/06/2021 12:28:37 [id number] [address] [facility] [address] [address] [place] [address] 05/26/2020 08:03:08 05/26/2020 08:53:25 [id number] Sterling Holliday MD [facility] [place] [address] 04/24/2022 15:56:23 04/24/2022 17:36:34 Acute left otitis media 171117988 H66.92 Health Concerns Section Related Observation LastModified by Organization Detai ls LastModified Time None Recorded Concern Status LastModified by Organization Details LastModified Time None Recorded Advance Directives Directive None Recorded Payers Insurance Date Sequence Insurance Name Policy Number Policy Choi Covered Member ID Choi Member ID Guarantor Name 04/25/2022 1 [employer]) [id number] Laurel Berman [id number] Laurel Berman Notes Date Note Type [...] down into neck Sterling Holliday MD [address] [place], [address], [place] - [facility] 04/24/2022 17:40:09 OBGyn Episode No OBEpisode recorded.
[2025-01-29 16:27] VITALS: BP 178/79; PULSE 63; O2SAT 99; BMI 42.2
== END 2025-01-29 16:41 | disposition home or self-care (01) ==
PROVIDERS: PCP Internal Medicine; Visit Provider Registered Nurse Emergency
DX: R20.2 Paresthesia of skin (principal); M54.16 Radiculopathy, lumbar region; M47.816 Spondylosis without myelopathy or radiculopathy, lumbar region
CPT/HCPCS: 99213

== ENCOUNTER 2025-02-20 20:09 | Outpatient (REF) | payer OTHER, SELFPAY ==
--- NOTE | ~2025-02-20 | MR_ITS ---
CLINICAL HISTORY: M54.16 - Radiculopathy, lumbar region MR of the lumbar spine without contrast Comparison: CR/SR - XR LUMBAR SPINE 4 OR MORE VIEWS - 12/18/24 09:10 EDT Findings: 4 mm anterolisthesis of L4 on L5, degenerative. Hemangioma in L1 and L2. Mild amount of Modic type 2 change at L5/S1. No cord expansion or abnormal signal intensity. The conus medullaris terminates at L1/L2, which is normal. The cauda equina is unremarkable. L1/L2: No disc herniation. No facet joint or ligamentum flavum hypertrophy. No central canal stenosis. No lateral recess stenosis. No foraminal stenosis. L2/L3: No disc herniation. mild facet joint and ligamentum flavum hypertrophy. mild central canal stenosis. No lateral recess stenosis. No foraminal stenosis. L3/L4: No disc herniation. moderate facet joint and ligamentum flavum hypertrophy. mild central canal stenosis. mild bilateral lateral recess stenosis. No foraminal stenosis. L4/L5: uncovering of the disc with 4 mm disc bulge. severe facet joint and ligamentum flavum hypertrophy. coqt-ud-racqpqqc central canal stenosis. mild right and moderate left lateral recess stenosis. No foraminal stenosis. L5/S1: disc desiccation with a 1-2 mm disc bulge. moderate facet joint and ligamentum flavum hypertrophy. mild central canal stenosis. mild bilateral lateral recess stenosis. No foraminal stenosis. Renal parapelvic cysts, gomw-vumqfgc-bzoy-right. Impression: no acute findings. Multilevel degenerative change, detailed above, which is most prominent at L4/L5 with ydsr-pp-qtrhptve central canal stenosis. This document has been electronically signed by: Meryl Porter MD on 02/22/2025 21:46:27
--- OUTSIDE RECORDS SUMMARY | 2025-02-20 20:13 | XMS_ITS | Clinical Summary ---
Author Organization [facility] Address [address] [address] Phone Care Team Providers Care Policy Intern Name Role Phone Luz Elena Valentin MD Primary Care Provider [phone] Allergies No known active allergies Medications ibuprofen [...] topic Medical Devices Not on file Insurance MAD Incubator [employer]EFITS [employer]RATORS [employer]EF[employer]MIN[employer]RAT[employer] BENEFITS ADMINISTRATORS [employer] BENEFITS ADMINISTRATORS MAD [employer]ator BENEFITS ADMINISTRATORS MAD Incubator BENEFITS ADMINISTRATORS MAD Inc[employer] BENEFITS ADMINISTRATORS [employer] Care Teams Policy Intern Relationship Specialty Start Date End Date Luz Elena Valentin MD [address] [facility] [place] [address] PCP - General Internal Medicine 03/31/20 Additional Source Comments The information contained in this document represents components of the legal health record. It is not the complete legal health record.[facility]
--- OUTSIDE RECORDS SUMMARY | 2025-02-20 20:13 | XMS_ITS | Encounter Summary ---
Author Organization [facility] Address [address] [facility] [address] [place] [address] Phone Care Team Providers Care Microsystems Engineer Name Role Phone Luz Elena Valentin MD Primary Care Provider [phone] Encounter Details Date Type Department Care Team (Late st Contact Info) Description 05/13/2020 Procedure Pass [facility] Endoscopy Admitting Dept Virtual Department [address] [place] [address] Social History Tobacco Use Types Packs/Day Years [...] on filedocumented in this encounter Care Teams Microsystems Engineer Relationship Specialty Start Date End Date Luz Elena Valentin MD [address] [place] [address] PCP - General Internal Medicine 03/31/20 documented as of this encounter Additional Source Comments The information contained in this document represents components of the legal health record. It is not the complete legal health record.[facility]
--- OUTSIDE RECORDS SUMMARY | 2025-02-20 20:13 | XMS_ITS | Encounter Summary ---
Author Organization [facility] Address [address] [facility] [address] [place] [address] Phone Care Team Providers Care Graffiti Cleaner Name Role Phone Francoise Tejeda MD Primary Care Provider [phone] Luz Elena Valentin MD Primary Care Provider [phone] Encounter Details Date Type Department Care Team (Latest Contact Info) Description 03/30/2020 Transcribe Orders Virtual Department [address] [place] [address] Elie Billingsley MD [address] [place] [address] [email or web address] Pre-operative [...] Order (04/03/2020 8:01 AM EST) COVID-19 Comment [id number] [facility] COVID Testing Status Sent to [facility] Other 04/03/2020 8:01 AM EST 04/03/2020 12:31 PM EST us Elie Billingsley MD LAB GENERAL ORDERABLES Final Result [facility] [address] [place] [address] documented in this encounter Visit Diagnoses Diagnosis Pre-operative laboratory examination- Primary Pre-procedural laboratory examination documented in this encounter Care Teams Graffiti Cleaner Relationship Specialty Start Date End Date Francoise Tejeda MD [address] [place] [address] PCP - General 01/15/17 03/30/20 Luz Elena Valentin MD [address] [place] [address] [place] [address] PCP - General Internal Medicine 03/31/20 documented as of this encounter Additional Source Comments The information contained in this document represents components of the legal health record. It is not the complete legal health record.[facility]
--- OUTSIDE RECORDS SUMMARY | 2025-02-20 20:14 | XMS_ITS | Patient Health Record ---
Author Organization [facility] Address [address] [facility] [place] [address] Care Team Providers Care Third Helper Name Role Phone Homero HERNANDES, [facility] Primary Care Provider Liang Orozco Unavailable [phone] Allergies No Known Allergies Reason For Referral [...] primary osteoarthritis of the ankle and/or foot (334518392) Primary osteoarthritis , right ankle and foot (M19.071) Active confirmed Problem Localized, primary osteoarthritis of the ankle and/or foot (215047518) Primary osteoarthritis , left ankle and foot (M19.072) Active confirmed Problem Acquired hammer toe of right foot (0895179772964295) Other hammer toe(s) (acquired), right foot (M20.41) Active confirmed Problem Acquired hammer toe of left foot (0313495603048478) Other hammer toe(s) (acquired), left foot (M20.42) Active confirmed Problem Plantar nerve lesion (221847229) 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 Plan Of Treatment Pending Test Test Name Order Date X ray : Foot, left 3V 07/20/2021 X ray : Foot, left 3V 04/10/2017 X ray : Foot, right 3V 04/10/2017 X ray : Foot, right 3V 07/20/2021 99049, L9510-WPJSP/INJECT, JOINT/BURSA 0 04/26/2017 95747, V2400-GFHVH/INJECT, JOINT/BURSA 0 08/09/2017 31376, J0702- Neuroma/Injection 08/10/19 18 93292, J0702- Neuroma/Injection 04/26/19 18 Insurance Providers Payer Name Payer Address Payer Phone Subscriber Number Group Number Insured Name Patient Relationship to Insured Coverage Start Date Coverage End Date Blue Benefits [address] [address] [place] [address] [id number] Laurel Berman Self - patient is the insured Medical (General) History Medical History History ICD Code Arthritis asthma Back,Hip,and Knee pain Depression Fibromyalgia Sciatica chronic sinusitis Chicken pox Cholesterol Surgical History Surgery Date(Month/Year) hysterectomy 35 years old cyst removal from wrist 18 years old
--- OUTSIDE RECORDS SUMMARY | 2025-02-20 20:14 | XMS_ITS | Data Portability ---
Author Organization [facility], [address] Address [address] [place] [address] Assessment No assessment recorded. Plan of Treatment Reminders Order Date Submit Date Provider Last Modified By Organization Details Last Modified Time Details Appointments None recorded. Lab rapid SARS CoV 2 Ag, QL IA, respiratory specimen 2022 023 [place] [address], [address] [place], [address], 17:35:43 Referral None recorded. Procedures None recorded. Surgeries None recorded. Imaging None recorded. Medication Orders amoxicillin 875 mg tablet [address] [facility] [address] [place] [address], [address], 17:37:49 Diflucan 150 mg tablet 2022 023 [facility] [address] [place] [address], [address], 17:35:50 Patient TargetsNo targets recorded. Patient Instructions Encounter Date Encounter Id Patient Instructions Last Modified By Organization Details Last Modified Time 04/24/2022 [id number] ear infection (otitis media): care instructions [place] [address] Not available 04/24/2022 17:35:42 You should follow-up [...] =Negat robin Not Available [facility] [address] [place], [address], 04/24/2022 16:55:05 04/24/19 23 04/24/2022 rapid SARS CoV 2 Ag, QL IA, respi rator y speci men Unknown Analyte negati ve Not Available [address] [address] [place], [address], 04/24/2022 16:55:05 Result Notes None recorded. Problems Name Problem SNOMED Code Status Onset Date Resolution Date Notes Provider Name and Address Organization Details Recorded Time Hyperlipidemia 44003816 Active 2022 TYESHA becerra, PA - [facility] 3 16:53:52 Seasonal affective disorder 978706234 Active 2022 [facility], [facility] - [facility] [...] [Score] - Reported Respiratory rate Oxygen saturation Heart rate Body temperature Systolic And Diastolic Provider Name and Address Organization Details Last Updated DateTime 157.48 cm 42.1 kg/m2 362913. 25 g 8 18 /min 97 % 66 /min 98.4 [degF] 120/78 mm[Hg] TYESHA TORRES [employer] 16:56:28 Social History Question Answer Notes LastModified by [employer] Details LastModified Time Tobacco Smoking Status Never Smoker TYESHA becerra [facility] 04/24/2022 16:54:39 Have You Recently Traveled Abroad? No [email or web address] Information not available 04/24/2022 Sex: Unknown Functional Status Question Answer Note LastModified by [employer] Details LastModified Time Do you use any illicit or recreational drugs? No [email or web address] Information not available 04/24/2022 Do you or have you ever used any other forms of tobacco or nicotine? No [email or web address] Information not available 04/24/2022 What is your level of alcohol consumption? Occasional [email or web address] Information not available 04/24/2022 Mental Status None recorded. Family History Relationship Description Onset Age of this Age Resolved Age Notes LastModified by Organization Details LastModified Time Father No current problems or disability [email or web address] Not available 04/24 16:54:23 Mother No current problems or disability Not available 04/24 16:54:23 Medical History No medical history recorded. Gynecological HistoryNo gynecological history recorded. Obstetrics History GPAL:G 0 P 0 0 0 0 Past Encounters Encounter ID Performer Location Encounter Start Date Encounter Closed Date Diagnosis/Indication Diagnosis SNOMED-CT Code Diagnosis ICD10 Code Diagnosis IMO Codes Diagnosis Note [id number] [facility] [facility] [place] [address] 04/11/2016 11:38:25 04/11/2016 12:43:59 [id number] [address] [place] [address] 07/27/2021 08:36:44 07/27/2021 10:27:31 [id number] [address] [place] [address] 05/06/2021 11:40:41 05/06/2021 12:28:37 [id number] [address] [facility] [address] [place] [address] 05/26/2020 08:03:08 05/26/2020 08:53:25 [id number] Sterling Holliday MD [facility] [address] [place] [address] 04/24/2022 15:56:23 04/24/2022 17:36:34 Acute left otitis media 146347783 H66.92 Health Concerns Section Related Observation LastModified by Organization Detai ls LastModified Time None Recorded Concern Status LastModified by Organization Details LastModified Time None Recorded Advance Directives Directive None Recorded Payers Insurance Date Sequence Insurance Name Policy Number Policy Choi Covered Member ID Choi Member ID Guarantor Name 04/25/2022 1 [employer]) [id number] Laurel Berman [id number] Laurel Berman Notes Date Note Type [...] Holliday MD [address] [place], [address], [place] - [facility] 04/24/2022 17:40:09 OBGyn Episode No OBEpisode recorded.
== END 2025-02-20 20:10 | disposition home or self-care (01) ==
LOC: HO.MRI 20:09
PROVIDERS: PCP Internal Medicine; Visit Provider Registered Nurse Emergency
DX: M47.26 Other spondylosis with radiculopathy, lumbar region (principal); R20.2 Paresthesia of skin
CPT/HCPCS: 72148

== ENCOUNTER → 2025-02-20 20:14 | Outpatient (BNV) | payer OTHER, SELFPAY | PROVIDERS: PCP Internal Medicine; Visit Provider Radiology Diagnostic Radiology | DX: M47.26 Other spondylosis with radiculopathy, lumbar region (principal); M48.061 Spinal stenosis, lumbar region without neurogenic claudication | CPT/HCPCS: 72148 ==